=== PATIENT | female | born 1935 | race Two or more races ===

== ENCOUNTER 2020-09-03 10:56 | Inpatient (IN) | payer MEDICARE, MEDICAID ==
[~2020-09-03] VITALS: Ht 165.1 cm; Wt 70.1 kg
[~2020-09-03 10:56] MED LIST: ACETAMINOPHEN650 M2 ORAL; AMLODIPINE BESYL5 MG ORAL; DUONEB 0.5-3(2.53 ML HHN; FLONASE1 SPRAYS NASAL; LOPRESSOR25 M1 ORAL; LOSARTAN POTAS100 MG ORAL; MIRALAX17 G2 ORAL; NEUPRO1 EAC1 TD; PRILOSEC20 MG ORAL; TYLENOL EXTRA500 MG ORAL; lopressor PO
[2020-09-03] MEDS ORDERED: HYDRALAZINE HCL10 MG ORAL (11:02)
--- NOTE | 2020-09-03 11:06 | NUR ---
ED Nurse Note: Patient from home and brought in by RA 826 due to lower back pain and right arm pain x 2 days. No reports of fall or trauma. Noted small bruising on right lower back. AAO x4, follows commands with non labored breathing.
[2020-09-03 11:10] VITALS: BP 150/63
--- NOTE | 2020-09-03 11:14 | NUR ---
ED Nurse Note: Dr Marquez at the bed side.
[2020-09-03] MEDS ORDERED: Omnipaque-300 100ml vial INJ PRN (11:15)
[2020-09-03] MEDS ORDERED: Ketorolac 30mg Inj IV ONE (11:15)
--- NOTE | 2020-09-03 11:27 | Emergency Room Report ---
History of Present Illness General Chief Complaint: Back Pain-No Injury Source: Patient Present Illness HPI 85-year-old female history of hypertension, obesity history of peptic ulcer disease requiring Rene patch, presents with diffuse abdominal pain sharp has been ongoing for the past 3 days patient reports that she has had abdominal pain for the past 2 months but she had an acute exacerbation she does endorse some diarrhea no blood, no dysuria severity is moderate, constant patient presents for evaluation treatment no known aggravating or alleviating factors. Patient during review of systems also complained of some chest discomfort that has been ongoing with this abdominal pain no fevers no chills no cough, patient does also endorse some accompanying shortness of breath Allergies: Coded Allergies: No Known Allergies (Unverified , 12/27/15) COVID-19 Screening Contact w/high risk pt: No Experienced COVID-19 symptoms?: No COVID-19 Testing performed PRODUCE INSPECTOR: No Patient History Past Medical History: see triage record Now: No Reviewed Nursing Documentation: PMH: Agreed; PSxH: Agreed Nursing Documentation-PMH Past Medical History: No History, Except For Hx Cardiac Problems: Yes Hx Hypertension: Yes Hx Cancer: No Hx Gastrointestinal Problems: Yes Hx Neurological Problems: Yes Hx Cerebrovascular Accident: Yes - 2000 Review of Systems All Other Systems: negative except mentioned in HPI Physical Exam Vital Signs Date Time Temp Pulse Resp B/P (MAP) Pulse Ox O2 Delivery O2 Flow Rate FiO2 09/03/20 10:56 98.6 76 18 142/82 (102) 99 Room Air Sp02 EP Interpretation: reviewed, normal General Appearance: well appearing, no apparent distress, alert Head: normocephalic, atraumatic Eyes: bilateral eye PERRL, bilateral eye EOMI ENT: uvula midline, moist mucus membranes Neck: supple, thyroid normal, supple/symm/no masses Respiratory: lungs clear, no respiratory distress, no retraction, no accessory muscle use Cardiovascular #1: normal peripheral pulses, regular rate, rhythm, no edema, no gallop, no murmur Gastrointestinal: soft, no guarding, no rebound, tenderness - Diffuse no localization Musculoskeletal: normal inspection Neurologic: alert, oriented x3 Psychiatric: mood/affect normal Skin: no rash, warm/dry Medical Decision Making Diagnostic Impression: Primary Impression: Abdominal pain Qualified Codes: R10.13 - Epigastric pain Additional Impressions: Pancreatitis Qualified Codes: K85.90 - Acute pancreatitis without necrosis or infection, unspecified Hyponatremia ER Course 85-year-old female presents with vague epigastric pain, chest pain differential diagnosis includes ACS, pancreatitis, pneumonia Chest x-ray negative, EKG negative troponin negative, patient found to be hyponatremic patient given a gentle bolus of 500 cc of NS Electrolytes will need to be corrected as an inpatient Patient admitted to Dr. Demarco Laboratory Tests Test 09/03/20 11:23 09/03/20 11:45 White Blood Count 5.8 K/UL (4.8-10.8) Red Blood Count 3.74 M/UL (4.20-5.40) L Hemoglobin 11.4 G/DL (12.0-16.0) L Hematocrit 32.9 % (37.0-47.0) L Mean Corpuscular Volume 88 FL (80-99) Mean Corpuscular Hemoglobin 30.4 PG (27.0-31.0) Mean Corpuscular Hemoglobin Concent 34.6 G/DL (32.0-36.0) Red Cell Distribution Width 11.8 % (11.6-14.8) Platelet Count 199 K/UL (150-450) Mean Platelet Volume 7.4 FL (6.5-10.1) Neutrophils (%) (Auto) 57.4 % (45.0-75.0) Lymphocytes (%) (Auto) 26.1 % (20.0-45.0) Monocytes (%) (Auto) 11.5 % (1.0-10.0) H Eosinophils (%) (Auto) 2.4 % (0.0-3.0) Basophils (%) (Auto) 2.5 % (0.0-2.0) H Prothrombin Time 10.5 SEC (9.30-11.50) Prothrombin Time INR 0.9 (0.9-1.1) Activated Partial Thromboplast Time 29 SEC (23-33) Sodium Level 125 MMOL/L (136-145) L Potassium Level 4.1 MMOL/L (3.5-5.1) Chloride Level 93 MMOL/L (98-107) L Carbon Dioxide Level 24 MMOL/L (21-32) Blood Urea Nitrogen 16 mg/dL (7-18) Creatinine 1.2 MG/DL (0.55-1.30) Estimated Glomerular Filtration Rate 42.8 mL/min (>60) Glucose Level 93 MG/DL (74-106) Calcium Level 9.0 MG/DL (8.5-10.1) Total Bilirubin 0.6 MG/DL (0.2-1.0) Aspartate Amino Transferase (AST) 41 U/L (15-37) H Alanine Aminotransferase (ALT) 31 U/L (12-78) Alkaline Phosphatase 81 U/L (46-116) Troponin I 0.017 ng/mL (0.000-0.056) Total Protein 6.5 G/DL (6.4-8.2) Albumin 3.6 G/DL (3.4-5.0) Globulin 2.9 g/dL Albumin/Globulin Ratio 1.2 (1.0-2.7) Lipase 401 U/L (73-393) H Urine Color Pale yellow Urine Appearance Clear Urine pH 7 (4.5-8.0) Urine Specific [place] 1.005 (1.005-1.035) Urine Protein Negative (NEGATIVE) Urine Glucose (UA) Negative (NEGATIVE) Urine Ketones Negative (NEGATIVE) Urine Blood 1+ (NEGATIVE) H Urine Nitrite Negative (NEGATIVE) Urine Bilirubin Negative (NEGATIVE) Urine Urobilinogen Normal MG/DL (0.0-1.0) Urine Leukocyte Esterase 2+ (NEGATIVE) H Urine RBC 0-2 /HPF (0 - 2) Urine WBC 2-4 /HPF (0 - 2) Urine Squamous Epithelial Cells Occasional /LPF Urine Bacteria None /HPF (NONE) Microbiology Date/Time Source Procedure Growth Status 09/03/20 11:30 Nasopharynx SARS-CoV-2 RdRp Gene Assay - Final Complete EKG Diagnostic Results Troponin ordered: Yes When was troponin ordered?: Sep 03, 2020 - 1101 EKG Time: 11:28 EP Interpretation: NSR, rate 68, QTc 41, no acute ST elevations, normal axis Rhythm Strip Diag. Results Rhythm Strip Time: 11:58 EP Interpretation: yes Rate: 69 Rhythm: NSR, no PVC's, no ectopy Chest X-Ray Diagnostic Results Chest X-Ray Diagnostic Results : Chest X-Ray Ordered: Yes # of Views/Limited/Complete: 1 View Indication: Chest Pain EP Interpretation: Yes Interpretation: no consolidation, no effusion, no pneumothorax, no acute cardiopulmonary disease Impression: No acute disease Electronically Signed by: Parmjit Marquez MD CT/MRI/US Diagnostic Results CT/MRI/US Diagnostic Results : Impression Procedure: CT Abdomen Pelvis w/Contrast Clinical Indication: Abdominal pain Technique: No oral contrast utilized, per emergency room physician request IV administration nonionic contrast. Venous phase spiral acquisition obtained through the abdomen and pelvis. Multiplanar reconstructions were generated. Total dose length product 438 mGycm. CTDIvol(s) 9 mGy. Dose reduction achieved using automated exposure control Comparison: none Findings: Lack of enteric contrast limits assessment of the GI tract. The a ppendix is not definitely identified, but no findings to suggest acute appendicitis are evident. No evidence of diverticulosis or diverticulitis. No small bowel distention. No free or loculated intraperitoneal gas or fluid is evident. There is a small sliding- type hiatal hernia incidentally noted. The remainder of the stomach and duodenum are unremarkable. The liver, gallbladder, bile ducts, pancreas, spleen, adrenals, kidneys are unremarkable. No retroperitoneal or mesenteric mass or adenopathy. No pelvic mass or adenopathy. The bladder is somewhat distended. Uterus and adnexal structures are unremarkable. The included lung bases demonstrate some peripheral linear reticular opacities. There are also basilar compressive atelectatic changes. The bones demonstrate degenerative spondylosis changes. Impression: Limited assessment of the GI tract, due to lack of enteric contrast administration No definite acute abnormality Peripheral basilar pulmonary linear reticular opacities, nonspecific, could represent small focal infiltrates, areas of scarring, mild pulmonary edema, among other possibilities. Incidental finding small sliding type hiatal hernia The CT scanner at [facility] is accredited by the [employer] and the scans are performed using protocols designed to limit radiation exposure to as low as reasonably achievable to attain images of sufficient resolution adequate for diagnostic evaluation. Dictated By: Quintin Smallwood MD Electronically Signed By:Quintin Smallwood MD Signed Date/Time09/03/20 1436 CC: Parmjit Marquez MD; Eliud Demarco [id number] 0 Last Vital Signs Date Time Temp Pulse Resp B/P (MAP) Pulse Ox O2 Delivery O2 Flow Rate FiO2 09/03/20 10:56 98.6 76 18 142/82 (102) 99 Room Air Disposition: ADMITTED INPATIENT Condition: Stable Referrals: NOT CHOSEN IPA/,REFERRING (PCP) Parmjit Marquez MD Sep 03, 2020 11:27
--- NOTE | 2020-09-03 11:40 | NUR ---
ED Nurse Note: Collected urine and covid19 swab and sent to lab.
[2020-09-03 11:43] LABS: BASOPHILS % (AUTO) 2.5 % (0.0-2.0); EOSINOPHILS % (AUTO) 2.4 % (0.0-3.0); HEMATOCRIT 32.9 % (37.0-47.0); HEMOGLOBIN 11.4 G/DL (12.0-16.0); LYMPHOCYTES % (AUTO) 26.1 % (20.0-45.0); MEAN CORPUSCULAR VOLUME 88 FL (80-99); MONOCYTES % (AUTO) 11.5 % (1.0-10.0); NEUTROPHILS % (AUTO) 57.4 % (45.0-75.0); PLATELET COUNT 199 K/UL (150-450); RED BLOOD COUNT 3.74 M/UL (4.20-5.40); RED CELL DISTRIBUTION WIDTH 11.8 % (11.6-14.8); WHITE BLOOD COUNT 5.8 K/UL (4.8-10.8)
[2020-09-03 11:49] LABS: INR 0.9 (0.9-1.1)
[2020-09-03 11:55] LABS: ALANINE AMINOTRANSFERASE 31 U/L (12-78); ALBUMIN 3.6 G/DL (3.4-5.0); ALBUMIN/GLOBULIN RATIO 1.2 (1.0-2.7); ALKALINE PHOSPHATASE 81 U/L (46-116); ASPARTATE AMINO TRANSFERASE 41 U/L (15-37); BILIRUBIN,TOTAL 0.6 MG/DL (0.2-1.0); BLOOD UREA NITROGEN 16 mg/dL (7-18); CARBON DIOXIDE 24 MMOL/L (21-32); CHLORIDE 93 MMOL/L (98-107); CREATININE 1.2 MG/DL (0.55-1.30); POTASSIUM 4.1 MMOL/L (3.5-5.1); SODIUM 125 MMOL/L (136-145)
[2020-09-03 12:32] LABS: APPEARANCE,URINE CLEAR; BILIRUBIN, URINE NEGATIVE (NEGATIVE); COLOR,URINE PALE YELLOW; GLUCOSE, URINE (UA) NEGATIVE (NEGATIVE); KETONES,URINE NEGATIVE (NEGATIVE); LEUKOCYTE ESTERASE ,URINE 2+ (NEGATIVE); NITRITE,URINE NEGATIVE (NEGATIVE); PH,URINE 7 (4.5-8.0); PROTEIN,URINE NEGATIVE (NEGATIVE); UROBILINOGEN,URINE NORMAL MG/DL (0.0-1.0)
--- NOTE | 2020-09-03 12:43 | NUR ---
ED Nurse Note: Pt taken to CT via dang.
--- NOTE | 2020-09-03 12:51 | NUR ---
ED Nurse Note: Pt returned from Ct, not in any distress.
[2020-09-03 13:35] VITALS: BP 136/106
--- NOTE | 2020-09-03 14:42 | Diagnostic Imaging Report ---
Clinical Indication: Abdominal pain Technique: No oral contrast utilized, per emergency room physician request IV administration nonionic contrast. Venous phase spiral acquisition obtained through the abdomen and pelvis. Multiplanar reconstructions were generated. Total dose length product 438 mGycm. CTDIvol(s) 9 mGy. Dose reduction achieved using automated exposure control Comparison: none Findings: Lack of enteric contrast limits assessment of the GI tract. The appendix is not definitely identified, but no findings to suggest acute appendicitis are evident. No evidence of diverticulosis or diverticulitis. No small bowel distention. No free or loculated intraperitoneal gas or fluid is evident. There is a small sliding-type hiatal hernia incidentally noted. The remainder of the stomach and duodenum are unremarkable. The liver, gallbladder, bile ducts, pancreas, spleen, adrenals, kidneys are unremarkable. No retroperitoneal or mesenteric mass or adenopathy. No pelvic mass or adenopathy. The bladder is somewhat distended. Uterus and adnexal structures are unremarkable. The included lung bases demonstrate some peripheral linear reticular opacities. There are also basilar compressive atelectatic changes. The bones demonstrate degenerative spondylosis changes. Impression: Limited assessment of the GI tract, due to lack of enteric contrast administration No definite acute abnormality Peripheral basilar pulmonary linear reticular opacities, nonspecific, could represent small focal infiltrates, areas of scarring, mild pulmonary edema, among other possibilities. Incidental finding small sliding type hiatal hernia The CT scanner at [facility] is accredited by the [employer] and the scans are performed using protocols designed to limit radiation exposure to as low as reasonably achievable to attain images of sufficient resolution adequate for diagnostic evaluation.
[2020-09-03] MEDS ORDERED: Albuterol/Ipratropium 3ml neb HHN PRN (15:15)
[2020-09-03 15:27] VITALS: BP 146/76
--- NOTE | 2020-09-03 15:33 | Diagnostic Imaging Report ---
Indication: Chest Technique: One view of the chest Comparison: 12/29/2025 Findings: Lungs pleural spaces are clear. The heart size is normal. No significant change Impression: Negative
--- NOTE | 2020-09-03 16:14 | NUR ---
ED Nurse Note: Report given to Delfina SEQUEIRA of telemetry unit.
--- NOTE | 2020-09-03 16:15 | NUR ---
NURSE NOTES: Received report from HUA Banegas. Awaiting for the pt to arrive in the unit.
--- NOTE | 2020-09-03 16:46 | NUR ---
ED Nurse Note: Dr Guthrie at the bed side.
--- NOTE | 2020-09-03 17:00 | NUR ---
NURSE NOTES: Pt arrived in the unit. Pt A/O x4, able to make needs known, complains of upper abdominal pain 07/05. No s/sx of acute distress, breathing even and unlabored in RA. IV site patent and asymptomatic. Belongings checked. Admissions orders already in place prior to arrival in the unit. Spoke with pharmacy regarding the timing of medication, as it was scheduled and pt still in the ED. Admission assessment performed. Bed on lowest position, call light within reach. Will continue plan of care.
[2020-09-03 18:00] VITALS: BP 152/71
[2020-09-03] MEDS: Metoprolol Tartrate 12.5mg TAB ORAL SCH (18:30)
[2020-09-03] MEDS: Losartan 50mg tab ORAL SCH (18:30)
[2020-09-03] MEDS: Flonase Nasal Inhaler 16gm NASAL SCH (18:31)
[2020-09-03] MEDS: HydrALAZINE 50mg tab ORAL SCH ×2 (18:31→22:37)
[2020-09-03] MEDS: Heparin 5000 units/ml inj SUBQ SCH (18:34)
--- NOTE | 2020-09-03 19:14 | Diagnostic Imaging Report ---
EXAM: US Duplex Bilateral Lower Extremities Veins CLINICAL HISTORY: Lower extremity pain, abdominal pain and shortness of breath. Evaluate for DVT. TECHNIQUE: Real-time duplex ultrasound scan of the bilateral lower extremity veins integrating B-mode two-dimensional vascular structure, Doppler spectral analysis, color flow Doppler imaging and compression. COMPARISON: No relevant prior studies available. FINDINGS: Right deep veins: Unremarkable. No DVT in the right common femoral, femoral, proximal deep femoral or popliteal veins. The veins demonstrate normal color flow, are normally compressible, with normal phasic flow and/or augmentation response. Right superficial veins: Unremarkable. No thrombus in the visualized right great saphenous vein. Left deep veins: Unremarkable. No DVT in the left common femoral, femoral, proximal deep femoral or popliteal veins. The veins demonstrate normal color flow, are normally compressible, with normal phasic flow and/or augmentation response. Left superficial veins: Unremarkable. No thrombus in the visualized left great saphenous vein. Soft tissues: No acute findings. No popliteal cyst. IMPRESSION: No evidence for DVT in the visualized portions of the veins of the bilateral lower extremities.
--- NOTE | 2020-09-03 19:38 | NUR ---
NURSE NOTES: Received pt from Delfina SEQUEIRA. Pt is lying in bed. Not acute distress noted. Pain is complaining of stomach pain 07/05. Patient is able to ambulate to the restroom with assistance of staff. IV site left forearm 20G running Normal Saline @75ml/hr as ordered; patent and intact. No erythema or bleeding noted. Bed in lowest position and locked. Call light with in reach; patient was also educated to use call light when needing assistance. Will call Dr. Demarco regarding pain and code status. Will continue to monitor.
--- NOTE | 2020-09-03 19:40 | NUR ---
NURSE NOTES: Left message with Dr. Demarco regarding patients stomach pain and the need of a code status.
--- NOTE | 2020-09-03 19:45 | NUR ---
NURSE HAND-OFF REPORT: Important Events on Shift: new admit Patient Status: Diet: Pending Orders: f/u on status code Pending Results/Labs: Pending MD notification: Latest Vital Signs: Temperature 97.9 , Pulse 72 , B/P 152 /71 , Respiratory Rate 20 , O2 SAT 97 , Room Air, O2 Flow Rate . Vital Sign Comment: EKG Rhythm: Sinus Rhythm Rhythm change?: MD Notified?: - MD Response: Latest Nur Fall Score: 45 Fall Risk: High Risk Safety Measures: Call light Within Reach, Bed Alarm Zone 1, Side Rails Side Rails x2, Bed position Low and Locked. Fall Precautions: Yellow Socks Yellow Gown Door Sign Patient Fall Education Report given to HUA Terry
[2020-09-03 20:00] VITALS: BP 128/71
--- NOTE | 2020-09-03 20:07 | NUR ---
NURSE NOTES: Left second message with Dr. Demarco regarding patients stomach pain and the need of a code status.
--- NOTE | 2020-09-03 20:30 | NUR ---
NURSE NOTES: Left message on Dr. Demarco/ Dr. Lopez office line regarding patients stomach pain and the need of a code status.
--- NOTE | 2020-09-03 20:40 | NUR ---
NURSE NOTES: Spoke to Dr. Lopez regarding patients stomach pain. Dr. Lopez will put in orders..
--- NOTE | 2020-09-03 21:42 | General Progress Note ---
Subjective Allergies: Coded Allergies: No Known Allergies (Unverified , 12/27/15) Objective Last 24 Hour Vital Signs Date Time Temp Pulse Resp B/P (MAP) Pulse Ox O2 Delivery O2 Flow Rate FiO2 09/03/20 18:31 152/71 09/03/20 18:31 72 152/71 09/03/20 18:30 72 152/71 09/03/20 18:30 152/71 09/03/20 18:00 97.9 72 20 152/71 (98) 97 09/03/20 17:33 Room Air 09/03/20 17:00 97.9 86 17 142/85 99 Room Air 09/03/20 15:27 98.5 79 16 146/76 100 Room Air 09/03/20 13:35 98.3 82 14 136/106 99 Room Air 09/03/20 11:58 98.6 09/03/20 11:10 98.3 68 16 150/63 100 Room Air 09/03/20 10:56 98.6 76 18 142/82 (102) 99 Room Air Laboratory Tests 09/03/20 11:23: White Blood Count 5.8, Red Blood Count 3.74L, Hemoglobin 11.4L, Hematocrit 32.9L , Mean Corpuscular Volume 88, Mean Corpuscular Hemoglobin 30.4, Mean Corpuscular Hemoglobin Concent 34.6, Red Cell Distribution Width 11.8, Platelet Count 199, Mean Platelet Volume 7.4, Neutrophils (%) (Auto) 57.4, Lymphocytes (%) (Auto) 26.1, Monocytes (%) (Auto) 11.5H, Eosinophils (%) (Auto) 2.4, Basophils (%) (Auto) 2.5H, Prothrombin Time 10.5, Prothromb Time International Ratio 0.9, Activated Partial Thromboplast Time 29, Sodium Level 125L, Potassium Level 4.1, Chloride Level 93L, Carbon Dioxide Level 24, Blood Urea Nitrogen 16, Creatinine 1.2, Estimat Glomerular Filtration Rate 42.8, Glucose Level 93, Calcium Level 9.0, Total Bilirubin 0.6, Aspartate Amino Transf (AST/SGOT) 41H, Alanine Aminotransferase (ALT/SGPT) 31, Alkaline Phosphatase 81, Troponin I 0.017, Total Protein 6.5, Albumin 3.6, Globulin 2.9, Albumin/Globulin Ratio 1.2, Lipase 401H 09/03/20 11:45: Urine Color Pale yellow, Urine Appearance Clear, Urine pH 7, Urine Specific [place] 1.005, Urine Protein Negative, Urine Glucose (UA) Negative, Urine Ketones Negative, Urine Blood 1+H, Urine Nitrite Negative, Urine Bilirubin Negative, Urine Urobilinogen Normal, Urine Leukocyte Esterase 2+H, Urine RBC 0- 2, Urine WBC 2-4, Urine Squamous Epithelial Cells Occasional, Urine Bacteria None Height (Feet): 5 Height (Inches): 1.00 Weight (Pounds): 152 Assessment/Plan Assessment/Plan: Assessment - 2 mo of intermittent post parandial epigastric pain - h/o gastritis - mild anemia - HTN - hypercholesterolemia Recommendations - check abd ultrasound - will consider HIDA - Protonix - Check OB - May need EGD next week Thank you Teodoro Draper MD Sep 03, 2020 21:42
--- NOTE | 2020-09-03 21:56 | NUR ---
NURSE NOTES: Left massage for Dr. Lopez regarding patients stomach pain and code status. Orders still have not been put in at this time. Will continue to monitor.
--- NOTE | 2020-09-03 21:59 | NUR ---
NURSE NOTES: Spoke to Dr. Lopez regarding patients stomach pain. Dr. Lopez will put in orders Addendum: 09/03/20 at 2216 by Mara Keating RN duplicate note.
[2020-09-03] MEDS: Morphine Sulfate 2mg/ml Inj(IV/IM USE ONLY) IVP PRN (22:37)
[2020-09-03] MEDS: Pantoprazole Inj IVP SCH (23:22)
[2020-09-04] VITALS (7 sets, daily range): BP systolic 104–150; BP diastolic 45–75
[2020-09-04] MEDS: Hyoscyamine 0.125mg tab ORAL PRN ×2 (00:12→04:59)
--- NOTE | 2020-09-04 00:30 | Consultation ---
DATE OF CONSULTATION: 09/03/2020 GASTROENTEROLOGY CONSULTATION CHIEF COMPLAINT: I was asked to see this patient by Dr. Eliud Demarco for evaluation of some abdominal complaints. HISTORY OF PRESENT ILLNESS: The patient is a pleasant 85-year-old woman who comes into the hospital due to a 2-month history of abdominal pain. The patient states the pain is epigastric and comes and goes. She has had no nausea or vomiting. She has had rare diarrhea. However, she does note the pain increases after oral intake. She has had no fevers and no hematochezia. The patient also complains of some other pains including back pain and arm pain. She has not had endoscopy or colonoscopy for at least 4 to 5 years. PAST MEDICAL HISTORY: History of gastritis, history of hypertension, and history of hypercholesterolemia. 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 FAMILY HISTORY: Negative for any malignancies. SOCIAL HISTORY: The patient does not smoke or drink alcohol. She is single. She has one son. REVIEW OF SYSTEMS: Otherwise negative. PHYSICAL EXAMINATION: GENERAL: A pleasant elderly woman, seen in the emergency room. HEENT: Normocephalic and atraumatic. Sclerae are anicteric. Oropharynx is clear. NECK: Supple. CHEST: Clear to auscultation. CARDIAC: Revealed regular rate. ABDOMEN: Soft but mildly tender to palpation in the epigastric region, perhaps slightly more on the right side. There is no guarding or rebound. EXTREMITIES: No edema. IMAGING AND LABORATORY STUDIES: Noted. ASSESSMENT: This patient presents with a vague complaint of postprandial epigastric abdominal pain of unclear etiology. The CT does not show any gallbladder pathology. The ultrasound should be done to evaluate the gallbladder further and possibly evaluate for Del Cid sign. If there is any suspicion, then a HIDA scan can be done to rule out gallbladder disease. Alternatively, she does have a history of gastritis and therefore should be placed on a proton pump inhibitor to see if she improves. An endoscopy can also be considered to evaluate the upper GI tract. RECOMMENDATIONS: 1. Abdominal ultrasound. 2. Follow laboratory parameters and exam. 3. Check stool for occult blood. 4. Follow lipase. 5. Further recommendations to follow. Thank you for asking me to participate in the care of this patient. Teodoro Huertas M.D. DR: RIO JOB#: [id number] CC:
--- NOTE | 2020-09-04 01:15 | Consultation ---
DATE OF CONSULTATION: 09/04/2020 CARDIOLOGY CONSULTATION CONSULTING PHYSICIAN: Kyle Lopez MD. REQUESTING PHYSICIAN: Eliud Demarco MD. REASON FOR CONSULTATION: Chest pain. HISTORY OF PRESENT ILLNESS: This is an 85-year-old female. She presented to the emergency room complaining of abdominal and back pain. She also had chest pain. She has noted recurrence of these symptoms for the past 2 months but significant worsening today prompting her to come to the hospital. She has had some diarrhea but no bleeding. No fevers. No chills. No leg swelling. Mild shortness of breath. The patient does have a prior history of pancreatitis and was hospitalized many years back for such an episode. Further the patient was hospitalized here in 2016. She had shortness of breath. She had a full cardiac workup at that time that included a 2D echocardiogram revealing normal ejection fraction, degenerative valve disease with moderate mitral and mild tricuspid regurgitation. In addition, myocardial perfusion scan revealed normal ejection fraction. No evidence of perfusion defects. PAST MEDICAL HISTORY: CVA with some speech impairment, hypertension, history of pancreatitis, peptic ulcer disease, obesity. ALLERGIES: None. MEDICATIONS: Reviewed and reconciled. FAMILY HISTORY: Noncontributory. SOCIAL HISTORY: Negative for smoking, alcohol, or substance abuse. REVIEW OF SYSTEMS: No fevers or chills. No known COVID-19 exposures. No seizures. No history of diabetes or thyroid disorder. No recent changes in bowel habits. No change in voiding capacity, dysuria or frequency. No wheezing. Some shortness of breath noted. No history of abnormal blood clotting. PHYSICAL EXAMINATION: VITAL SIGNS: Blood pressure 142/82, pulse 76, respiratory rate 18, afebrile, oxygen saturation room air 99%. GENERAL: Moderately obese. NECK: Supple. LUNGS: . Diminished breath sounds. No wheezing or rales. CARDIAC: Regular rhythm and rate. Distant S1, S2 with no murmur appreciated. ABDOMEN: Soft. Mildly tender in the midepigastric region predominantly. NEUROLOGIC: Nonfocal. LABORATORY AND DIAGNOSTIC DATA: White count 5.8, hemoglobin 11.4. Sodium 125, potassium 4.1, chloride 93, bicarb 24, BUN 16, creatinine 1.2, glucose 93. Troponin 0.017. Lipase 401. Urinalysis with only 2 to 4 white cells. EKG with sinus rhythm, no acute ST abnormalities. Chest x-ray with no acute process. IMPRESSION: Noncardiac chest pain. No signs of acute coronary insufficiency. Prior negative cardiac workup. It is of note degenerative valve disease with no hemodynamic consequence with history of mitral regurgitation, probable acute pancreatitis, history of CVA, hypertensive heart disease with controlled blood pressure, hyponatremia, hypochloremia, probable component of hypovolemia. PLAN: 1. Saline hydration. 2. NPO. 3. Pain control. 4. Followup troponin. 5. DVT prophylaxis. 6. Titrate antihypertensive regimen. 7. No additional cardiovascular studies presently indicated but will follow closely for any change in clinical course. Kyle Lopez M.D. DR: Tank JOB#: [id number] CC:
[2020-09-04] MEDS: Morphine Sulfate 2mg/ml Inj(IV/IM USE ONLY) IVP PRN (04:59)
[2020-09-04] MEDS: HydrALAZINE 50mg tab ORAL SCH ×3 (05:47→22:03)
--- NOTE | 2020-09-04 07:30 | NUR ---
NURSE HAND-OFF REPORT: Important Events on Shift: Patient had an ABD ultrasound. Patient was placed on NPO. Patient Status: Stable Diet: NPO Pending Orders: Pending Results/Labs: AM labs Pending Pending MD notification: Latest Vital Signs: Temperature 98.5 , Pulse 87 , B/P 153 /78 , Respiratory Rate 20 , O2 SAT 95 , Room Air, O2 Flow Rate . Vital Sign Comment: EKG Rhythm: Sinus Rhythm Rhythm change?: N MD Notified?: - MD Response: Latest Nur Fall Score: 45 Fall Risk: High Risk Safety Measures: Call light Within Reach, Bed Alarm Zone 1, Side Rails Side Rails x2, Bed position Low and Locked. Fall Precautions: Yellow Socks Yellow Gown Door Sign Patient Fall Education Report given to Trista SEQUEIRA.
--- NOTE | 2020-09-04 07:32 | NUR ---
NURSES NOTES: Received order from Dr. Demarco for Full Code status order.
[2020-09-04 07:44] LABS: CHOLESTEROL 119 MG/DL (< 200); HDL CHOLESTEROL 86 MG/DL (40-60); TRIGLYCERIDES 41 MG/DL (30-150)
--- NOTE | 2020-09-04 07:48 | NUR ---
NURSE NOTES: spoke with Dr Demarco and ordered okay transfer to [facility].
[2020-09-04 07:54] LABS: CALCIUM 8.8 MG/DL (8.5-10.1); CREATININE 1.2 MG/DL (0.55-1.30); POTASSIUM 3.8 MMOL/L (3.5-5.1)
--- NOTE | 2020-09-04 08:11 | NUR ---
NURSE NOTES: Received report from HUA Terry. Pt is A/O x 4 and verbally responsive Yoruba speaking only. No SOB or acute distress noted. Pt has stomach pain 8/10 and morphine given. Patient is able to ambulate to the bedside commode with assistance of staff. Pt has IV site LFA 20G running NS @75ml/hr. Bed in lowest position and locked with bed alarm on. Call light placed within reach.Will call Dr. Demarco regarding pain and code status. Will continue to monitor.
[2020-09-04] MEDS: Pantoprazole Inj IVP SCH ×2 (08:40→22:01)
[2020-09-04] MEDS: Losartan 50mg tab ORAL SCH (08:41)
[2020-09-04] MEDS: HYDROmorphone 1mg/ml Carpuject IVP PRN (08:41)
[2020-09-04] MEDS: Metoprolol Tartrate 12.5mg TAB ORAL SCH (08:42)
[2020-09-04] MEDS: Heparin 5000 units/ml inj SUBQ SCH ×2 (08:43→22:03)
[2020-09-04] MEDS: Flonase Nasal Inhaler 16gm NASAL SCH ×2 (08:51→18:09)
--- NOTE | 2020-09-04 10:00 | History and Physical Report ---
DATE OF ADMISSION: 09/03/2020 CHIEF COMPLAINT: Abdominal pain and chest pain. HISTORY OF PRESENT ILLNESS: The patient is an 85-year-old female, who presents with complaints of abdominal pain. She points to her upper abdominal area and lower chest area. According to the patient, she has had three months of intermittent abdominal pain. Currently, she is moaning. She has a history of hypertensive heart disease. She denies any melena or bright red blood per rectum. Denies any hematemesis. On evaluation in the emergency room, abdominal CT and it was unremarkable, but she is now admitted for further evaluation and care. PAST MEDICAL HISTORY: As above. PAST SURGICAL HISTORY: The patient is unclear, but she has had some type of abdominal surgery. CURRENT MEDICATIONS: Reconciled and reviewed. ALLERGIES: None. FAMILY HISTORY: None. SOCIAL HISTORY: There is no known history of tobacco, ethanol, or drugs. REVIEW OF SYSTEMS: GENERAL: No fevers or chills. HEENT: No headaches or visual changes. CARDIOPULMONARY: No chest pain or shortness of breath. GASTROINTESTINAL: Positive abdominal pain. No nausea. No vomiting. No constipation. No melena. No bright red blood per rectum. GENITOURINARY: No urgency or frequency. No hematuria. MUSCULOSKELETAL: No joint pain or swelling. NEUROLOGIC: No evidence of seizures. PHYSICAL EXAMINATION: VITAL SIGNS: Temperature 98.5, pulse 74, respirations 20, and blood pressure 145/59. GENERAL: The patient is well developed, in mild amount of distress due to pain. HEENT: Head is normocephalic and atraumatic. Oropharynx clear. Mucous membranes are moist. NECK: Supple. HEART: Regular rate and rhythm. LUNGS: Clear. ABDOMEN: Soft. Minimally tender in the epigastric region. Bowel sounds are normoactive. There is no rebound or guarding. EXTREMITIES: Without clubbing, cyanosis, or edema. LABORATORY DATA: UA was clear. White count 6, hemoglobin 11. Sodium 125, potassium is 4. LFTs are unremarkable. Lipase is 401. ASSESSMENT: This is a pleasant 85-year-old female admitted with complaints of three months of abdominal pain, etiology of which is unclear. PLAN: GI and Cardiology consultations. IV pain medications and IV hydration. Further plan of care will be determined after review of pending tests and discussion with consulting physicians. Eliud Demarco M.D. DR: GEETHA JOB#: [id number] CC:
--- NOTE | 2020-09-04 11:45 | NUR ---
NURSES NOTES: Transferred to [facility] and report given to HUA Cox. In stable condition without pain. Endorsed plan of care.
--- NOTE | 2020-09-04 12:00 | NUR ---
NURSE NOTES: Pt came up to unit via hospital bed in stable condition and w/belongings accounted for. Pt A&Ox3, VSS, and in no apparent distress. IV site intact/asymptomatic w/IVF infusing and skin intact. Pt is NPO x ice chips/PO meds and skin is intact. Pt has no concerns or complaints at this time. Will continue to monitor.
--- NOTE | 2020-09-04 12:59 | NUR ---
CASE MANAGEMENT:INITIAL REVIEW 85 YR OLE FEMALE BIBA FROM HOME CC;BACK PAIN-NO INJURY SI;CHEST PAIN. ABD PAIN. PANCREATITIS. HYPONATREMIA. 98.6 76 18 150/63 99% ON RA H/H 11.4/32.9 NA 125 CL 93 AST 41 LIPASE 401 TROP ~ NEGATIVE UA+ BLOOD, LEUKOCYTE ESTERASE COVID RAPID - NEGATIVE ABD/PELVIS CT ~ Limited assessment of the GI tract, due to lack of enteric contrast administration No definite acute abnormality Peripheral basilar pulmonary linear reticular opacities, nonspecific, could represent small focal infiltrates, areas of scarring, mild pulmonary edema, among other possibilities. Incidental finding small sliding type hiatal hernia CXR ~ NEGATIVE VENOUS DUPLEX ~ No evidence for DVT in the visualized portions of the veins of the bilateral lower extremities. IS;TORADOL IV ONCE IVF NS BOLUS ADMITTED TO TELE 09/03/20 TRANSFERRED TO MED SURG 09/04/20 @ 0748 MED SURG STATUS DCP;FROM HOME
--- NOTE | 2020-09-04 13:08 | NUR ---
CONSTRUCTION PROJECT COORDINATOR NOTE INTERQUAL CRITERIA MET
--- NOTE | 2020-09-04 17:06 | Cardiology Progress Note ---
Subjective DATE OF SERVICE: Sep 04, 2020 Improved abdominal pain. No CP Troponins negative Lipase level now normal Na+ increased from 125 to 133. Objective Last 24 Hour Vital Signs Date Time Temp Pulse Resp B/P (MAP) Pulse Ox O2 Delivery O2 Flow Rate FiO2 09/04/20 16:00 97.3 77 18 116/54 (74) 97 09/04/20 14:21 125/52 09/04/20 12:00 82 09/04/20 12:00 97.8 78 20 118/58 (78) 98 09/04/20 09:00 Room Air 09/04/20 08:42 74 153/78 09/04/20 08:41 153/78 09/04/20 08:41 74 153/78 09/04/20 08:00 97.9 73 20 105/45 (65) 100 09/04/20 08:00 87 09/04/20 05:47 153/78 09/04/20 04:00 98.5 87 20 145/59 (87) 95 09/04/20 04:00 74 09/04/20 00:00 82 09/04/20 00:00 98.5 77 18 150/75 (100) 94 09/03/20 22:37 140/62 09/03/20 21:00 Room Air 09/03/20 20:00 98.8 64 18 128/71 (90) 98 09/03/20 20:00 65 09/03/20 18:31 152/71 09/03/20 18:31 72 152/71 09/03/20 18:30 72 152/71 09/03/20 18:30 152/71 09/03/20 18:00 97.9 72 20 152/71 (98) 97 09/03/20 17:33 Room Air 09/03/20 17:00 97.9 86 17 142/85 99 Room Air ROS: unchanged from my evaluation 09/03/20 LUNGS: lungs clear bilaterally CARDIAC: normal rate, regular rhythm, normal S1 and S2 ABDOMEN: normal bowel sounds, soft, tender - mildly in midepigastric area EXTREMITIES: No edema Laboratory Tests Test 09/04/20 05:40 Sodium Level 133 MMOL/L (136-145) L Potassium Level 3.8 MMOL/L (3.5-5.1) Chloride Level 98 MMOL/L (98-107) Carbon Dioxide Level 25 MMOL/L (21-32) Anion Gap 10 mmol/L (5-15) Blood Urea Nitrogen 14 mg/dL (7-18) Creatinine 1.2 MG/DL (0.55-1.30) Estimat Glomerular Filtration Rate 42.8 mL/min (>60) Glucose Level 85 MG/DL (74-106) Calcium Level 8.8 MG/DL (8.5-10.1) Troponin I 0.023 ng/mL (0.000-0.056) Triglycerides Level 41 MG/DL (30-150) Cholesterol Level 119 MG/DL (< 200) LDL Cholesterol 28 mg/dL (<100) HDL Cholesterol 86 MG/DL (40-60) H Cholesterol/HDL Ratio 1.4 (3.3-4.4) L Lipase 183 U/L (73-393) Thyroid Stimulating Hormone (TSH) 2.339 uiU/mL (0.358-3.740) Microbiology Date/Time Source Procedure Growth Status 09/03/20 11:30 Nasopharynx SARS-CoV-2 RdRp Gene Assay - Final Complete Assessment/Plan Assessment/Plan Abdominal Pain Elevated lipase on admit with distant hx of pancreatitis Non-cardiac chest pain; negative ischemia work up in past. Low range lipid parameters. DC telemetry No additional cardiovascular studies at this time. Will follow Kyle Lopez MD Sep 04, 2020 17:06
--- NOTE | 2020-09-04 19:25 | General Progress Note ---
Subjective Allergies: Coded Allergies: No Known Allergies (Unverified , 12/27/15) Subjective above noted feels better today had ultrasound --> Gall bladder sludge noted Objective Last 24 Hour Vital Signs Date Time Temp Pulse Resp B/P (MAP) Pulse Ox O2 Delivery O2 Flow Rate FiO2 09/04/20 16:00 97.3 77 18 116/54 (74) 97 09/04/20 14:21 125/52 09/04/20 12:00 82 09/04/20 12:00 97.8 78 20 118/58 (78) 98 09/04/20 09:00 Room Air 09/04/20 08:42 74 153/78 09/04/20 08:41 153/78 09/04/20 08:41 74 153/78 09/04/20 08:00 97.9 73 20 105/45 (65) 100 09/04/20 08:00 87 09/04/20 05:47 153/78 09/04/20 04:00 98.5 87 20 145/59 (87) 95 09/04/20 04:00 74 09/04/20 00:00 82 09/04/20 00:00 98.5 77 18 150/75 (100) 94 09/03/20 22:37 140/62 09/03/20 21:00 Room Air 09/03/20 20:00 98.8 64 18 128/71 (90) 98 09/03/20 20:00 65 Intake and Output 09/03/20 09/04/20 19:00 07:00 Intake Total 740 ml Output Total 350 ml Balance 740 ml -350 ml Intake Oral 240 ml IV Total 500 ml Output Urine Total 350 ml # Voids 2 2 Laboratory Tests 09/04/20 05:40: Sodium Level 133L, Potassium Level 3.8, Chloride Level 98, Carbon Dioxide Level 25, Anion Gap 10, Blood Urea Nitrogen 14, Creatinine 1.2, Estimat Glomerular Filtration Rate 42.8, Glucose Level 85, Calcium Level 8.8, Troponin I 0.023, Triglycerides Level 41, Cholesterol Level 119, LDL Cholesterol 28, HDL Cholesterol 86H, Cholesterol/HDL Ratio 1.4L, Lipase 183, Thyroid Stimulating Hormone (TSH) 2.339 Height (Feet): 5 Height (Inches): 1.00 Weight (Pounds): 152 Objective WDWN woman NCAT supple CY+TA RR Abd soft ND NT no edema Assessment/Plan Assessment/Plan: Assessment - 2 mo of intermittent post parandial epigastric pain - cholelithiasis / GB sludge - h/o gastritis - mild anemia - HTN - hypercholesterolemia Recommendations - will check HIDA Sunday - Clear liquids for now - Protonix - Check OB Teodoro Huertas MD Sep 04, 2020 19:25
--- NOTE | 2020-09-04 19:30 | NUR ---
NURSE NOTES: Receive a report from HUA Cox. Round is done. Pt is awake without acute distress, Irish speaking. Breathing is even and non labored. Denies any pain/ Nausea. No BM noted. Hat is in the toilet to collect stool. Call light within reach. Will continue to monitor.
--- NOTE | 2020-09-04 19:30 | NUR ---
NURSE HAND-OFF: Important Events on Shift: Pt placed on clear liquids after abd US; possible EGD next week. Patient Status: Stable Diet: Clear liquids Pending Orders: OB stool Latest Vital Signs: Temperature 97.3 , Pulse 77 , B/P 116 /54 , Respiratory Rate 18 , O2 SAT 97 , Room Air, O2 Flow Rate Latest Nur Fall Score: 45 Fall Risk: High Risk Safety Measures: Call light Within Reach, Bed Alarm Zone 1, Side Rails Side Rails x2, Bed position Low and Locked. Fall Precautions: Yellow Socks Yellow Gown Door Sign Patient Fall Education Report given to HUA Amato.
[2020-09-05] VITALS: BP 140/66
[2020-09-05] MEDS: Miralax 17gm pkt ORAL PRN (00:03)
[2020-09-05 04:30] VITALS: BP 120/60
[2020-09-05] MEDS: HydrALAZINE 50mg tab ORAL SCH ×3 (06:31→21:19)
--- NOTE | 2020-09-05 07:30 | NUR ---
NURSE HAND-OFF: Important Events on Shift: No BM-Given prn miralax Patient Status: stable Diet: clear liquid Pending Orders: [] Pending Results/Labs:[] Pending MD notification:[] Latest Vital Signs: Temperature 97.6 , Pulse 81 , B/P 120 /60 , Respiratory Rate 18 , O2 SAT 96 , Room Air, O2 Flow Rate . Vital Sign Comment: [] Latest Nur Fall Score: 45 Fall Risk: High Risk Safety Measures: Call light Within Reach, Bed Alarm Zone 1, Side Rails Side Rails x2, Bed position Low and Locked. Fall Precautions: Yellow Socks Yellow Gown Door Sign Patient Fall Education Report given to HUA Cox.
--- NOTE | 2020-09-05 07:45 | NUR ---
NURSE NOTES: Pt lying in bed w/bed in lowest position and call light within reach. Pt A&Ox3, VSS, and in no apparent distress. IV site intact/asymptomatic w/IVF infusing and skin intact; some bruising noted on her right flank. Pt c/o pain in right flank; will administer pain medication.
[2020-09-05 08:00] VITALS: BP 120/57
[2020-09-05] MEDS: Flonase Nasal Inhaler 16gm NASAL SCH ×2 (08:09→17:28)
[2020-09-05] MEDS: Morphine Sulfate 2mg/ml Inj(IV/IM USE ONLY) IVP PRN (08:09)
[2020-09-05] MEDS: Losartan 50mg tab ORAL SCH (08:10)
[2020-09-05] MEDS: Metoprolol Tartrate 12.5mg TAB ORAL SCH ×2 (08:11→17:29)
[2020-09-05] MEDS: Pantoprazole Inj IVP SCH ×2 (08:12→21:19)
[2020-09-05] MEDS: Heparin 5000 units/ml inj SUBQ SCH (08:13)
[2020-09-05 12:00] VITALS: BP 128/80
[2020-09-05] MEDS: Diclofenac 1% Gel 100gm TOPIC SCH ×3 (13:51→21:19)
[2020-09-05] MEDS ORDERED: METOPROLOL SUCC50 MG ORAL (15:27)
--- NOTE | 2020-09-05 15:29 | General Progress Note ---
Subjective ROS Limited/Unobtainable: No Constitutional: Reports: malaise, weakness HEENT: Reports: no symptoms Cardiovascular: Reports: no symptoms Respiratory: Reports: shortness of breath Gastrointestinal/Abdominal: Reports: abdominal pain Genitourinary: Reports: no symptoms Neurologic/Psychiatric: Reports: no symptoms Endocrine: Reports: no symptoms Hematologic/Lymphatic: Reports: no symptoms Allergies: Coded Allergies: No Known Allergies (Unverified , 12/27/15) All Systems: reviewed and negative except above Subjective still with abd pain and now back pain. no fevers or chills. mild sob. +afib on ekg. no melena or brbpr Objective Last 24 Hour Vital Signs Date Time Temp Pulse Resp B/P (MAP) Pulse Ox O2 Delivery O2 Flow Rate FiO2 09/05/20 13:51 128/80 09/05/20 12:00 97.8 113 18 128/80 (96) 96 09/05/20 09:00 Room Air 09/05/20 08:11 107 120/57 09/05/20 08:10 120/57 09/05/20 08:00 97.4 107 18 120/57 (78) 96 09/05/20 06:31 120/60 09/05/20 04:30 97.6 81 18 120/60 (80) 96 09/05/20 00:00 98.9 92 18 140/66 (90) 96 09/04/20 22:03 116/56 09/04/20 22:00 116/58 (77) 09/04/20 21:00 Room Air 09/04/20 20:00 97.6 78 18 104/52 (69) 97 09/04/20 16:00 97.3 77 18 116/54 (74) 97 Intake and Output 09/04/20 09/05/20 19:00 07:00 Intake Total 840 ml 1150 ml Output Total 750 ml Balance 840 ml 400 ml Intake Oral 840 ml 250 ml IV Total 900 ml Output Urine Total 750 ml # Voids 4 4 Laboratory Tests 09/05/20 14:15: Stool Occult Blood [Pending] Height (Feet): 5 Height (Inches): 1.00 Weight (Pounds): 152 General Appearance: WD/WN, no apparent distress, alert EENT: PERRL/EOMI Neck: non-tender, normal alignment, supple Cardiovascular: normal rate, regular rhythm Respiratory/Chest: chest wall non-tender, lungs clear, normal breath sounds, no respiratory distress Abdomen: normal bowel sounds, non tender, soft, no organomegaly, no mass Edema: no edema noted Arm (L), no edema noted Arm (R) Edema: trace edema Neurologic: tube rebuilder II-XII grossly normal, no motor/sensory deficits, alert, oriented x 3, responsive Assessment/Plan Problem List: (1) Chest pain ICD Codes: R07.9 - Chest pain, unspecified SNOMED: 02329897 (2) Abdominal pain ICD Codes: R10.9 - Unspecified abdominal pain SNOMED: 14004172 Qualifiers: Qualified Codes: R10.13 - Epigastric pain (3) Hyponatremia ICD Codes: E87.1 - Hypo-osmolality and hyponatremia SNOMED: 82311941 (4) CHF (congestive heart failure) ICD Codes: I50.9 - Heart failure, unspecified SNOMED: 43095461 (5) Elevated alkaline phosphatase level ICD Codes: R74.8 - Abnormal levels of other serum enzymes SNOMED: 747095984 Status: stable, progressing Assessment/Plan: HIDA scan pain rx add eliquis cards follow up re: afib ct lumbar spine stress ulcer prophylaxis pain rx increased Eliud Demarco MD Sep 05, 2020 15:29
[2020-09-05] MEDS ORDERED: HYZAAR 100-251 EACH ORAL (15:33)
[2020-09-05] MEDS ORDERED: ATORVASTATIN CA20 MG ORAL (15:40)
[2020-09-05] MEDS ORDERED: CARAFATE SUSP UD1 G1 ORAL (15:40)
[2020-09-05] MEDS ORDERED: FLUTICASONE PRO16 G1 NASAL (15:40)
[2020-09-05] MEDS ORDERED: VITAMIN D325 MC1 PO (15:44)
[2020-09-05] MEDS ORDERED: TUMS200 M1 PO (15:44)
[2020-09-05] MEDS ORDERED: ASCORBIC ACID500 MG ORAL (15:44)
[2020-09-05] MEDS ORDERED: ALBUTEROL SULF8.5 G1 INH (15:44)
[2020-09-05] MEDS ORDERED: VOLTAREN ARTHRI20 GM TP (15:49)
[2020-09-05 16:00] VITALS: BP 147/70
[2020-09-05] MEDS: Eliquis 5mg tablet ORAL SCH (17:28)
--- NOTE | 2020-09-05 19:41 | NUR ---
NURSE HAND-OFF: Important Events on Shift: Pt tachycardic this afternoon; EKG showed a-fib; increased Metoprolol 12.5 mg frequency to BID; pt had BM; pt made aware that she is to be NPO at midnight in preparation for HIDA scan in AM. Patient Status: Stable Diet: Clear liquids/NPO at midnight Pending Orders: CT L/S w/o contrast Latest Vital Signs: Temperature 97.8 , Pulse 105 , B/P 147 /70 , Respiratory Rate 18 , O2 SAT 96 , Room Air, O2 Flow Rate Latest Nur Fall Score: 45 Fall Risk: High Risk Safety Measures: Call light Within Reach, Bed Alarm Zone 1, Side Rails Side Rails x2, Bed position Low and Locked. Fall Precautions: Yellow Socks Yellow Gown Door Sign Patient Fall Education Report given to HUA Loza.
--- NOTE | 2020-09-05 19:45 | General Progress Note ---
Subjective Allergies: Coded Allergies: No Known Allergies (Unverified , 12/27/15) Subjective above noted feels OK Occ Abd pain for HIDA in am Objective Last 24 Hour Vital Signs Date Time Temp Pulse Resp B/P (MAP) Pulse Ox O2 Delivery O2 Flow Rate FiO2 09/05/20 17:29 105 147/70 09/05/20 16:00 97.8 105 18 147/70 (95) 96 09/05/20 13:51 128/80 09/05/20 12:00 97.8 113 18 128/80 (96) 96 09/05/20 09:00 Room Air 09/05/20 08:11 107 120/57 09/05/20 08:10 120/57 09/05/20 08:00 97.4 107 18 120/57 (78) 96 09/05/20 06:31 120/60 09/05/20 04:30 97.6 81 18 120/60 (80) 96 09/05/20 00:00 98.9 92 18 140/66 (90) 96 09/04/20 22:03 116/56 09/04/20 22:00 116/58 (77) 09/04/20 21:00 Room Air 09/04/20 20:00 97.6 78 18 104/52 (69) 97 Intake and Output 09/04/20 09/05/20 19:00 07:00 Intake Total 840 ml 1150 ml Output Total 750 ml Balance 840 ml 400 ml Intake Oral 840 ml 250 ml IV Total 900 ml Output Urine Total 750 ml # Voids 4 4 Laboratory Tests 09/05/20 14:15: Stool Occult Blood [Pending] Height (Feet): 5 Height (Inches): 1.00 Weight (Pounds): 152 Objective WDWN woman NCAT supple CY+TA RR Abd soft ND NT no edema Assessment/Plan Status: stable, progressing Assessment/Plan: Assessment - 2 mo of intermittent post parandial epigastric pain - cholelithiasis / GB sludge - h/o gastritis - mild anemia - HTN - hypercholesterolemia Recommendations - will check HIDA Sunday - Clear liquids for now - Protonix - Check OB Teodoro Huertas MD Sep 05, 2020 19:45
[2020-09-05 20:00] VITALS: BP 142/73
--- NOTE | 2020-09-06 02:09 | Cardiology Progress Note ---
Subjective DATE OF SERVICE: Sep 05, 2020 Improved abdominal pain. No CP Troponins negative Lipase level now normal US reveals cholelithiasis and sludge Repeat EKG 09/05/20 reveals atrial fibrillation with adequate rate control. Objective Last 24 Hour Vital Signs Date Time Temp Pulse Resp B/P (MAP) Pulse Ox O2 Delivery O2 Flow Rate FiO2 09/05/20 21:19 142/73 09/05/20 21:00 Room Air 09/05/20 20:00 97.7 73 16 142/73 (96) 98 09/05/20 17:29 105 147/70 09/05/20 16:00 97.8 105 18 147/70 (95) 96 09/05/20 13:51 128/80 09/05/20 12:00 97.8 113 18 128/80 (96) 96 09/05/20 09:00 Room Air 09/05/20 08:11 107 120/57 09/05/20 08:10 120/57 09/05/20 08:00 97.4 107 18 120/57 (78) 96 09/05/20 06:31 120/60 09/05/20 04:30 97.6 81 18 120/60 (80) 96 ROS: unchanged from my evaluation 09/03/20 LUNGS: lungs clear bilaterally CARDIAC: normal rate, normal S1 and S2, irregularly irregular ABDOMEN: normal bowel sounds, soft, tender - mildly in midepigastric area EXTREMITIES: No edema Laboratory Tests Test 09/05/20 14:15 Stool Occult Blood Pending Microbiology Date/Time Source Procedure Growth Status 09/03/20 11:30 Nasopharynx SARS-CoV-2 RdRp Gene Assay - Final Complete Assessment/Plan Assessment/Plan Abdominal Pain Elevated lipase on admit with distant hx of pancreatitis Non-cardiac chest pain; negative ischemia work up in past. Low range lipid parameters. Paroxysmal atrial fibrillation Await Hida Beta dorys for rate control Cautious anticoagulation Kyle Lopez MD Sep 06, 2020 02:09
[2020-09-06] MEDS: Acetaminophen 500mg (ES) tab ORAL PRN ×2 (02:23→05:46)
--- NOTE | 2020-09-06 03:09 | NUR ---
NURSES NOTE: Pt in bed, Divehi speaker, able to answer questions appropriately with assistance of Divehi speaking day nurse. No outward s/s of distress noted. Breathing pattern is even and unlabored on RA. Pt to be NPO at 0000 in preparation for HIDA scan in the am. All due medications will be administered. Bed at lowest level. Call light within reach. Pt will continue to be monitored.
[2020-09-06 04:00] VITALS: BP 141/72
[2020-09-06] MEDS: HydrALAZINE 50mg tab ORAL SCH ×3 (05:45→21:27)
--- NOTE | 2020-09-06 06:18 | Diagnostic Imaging Report ---
EXAM: US Abdomen Complete CLINICAL HISTORY:85-year-old female history of hypertension, obesity history of peptic ulcer disease requiring Rene patch, presents with diffuse abdominal pain sharp has been ongoing for the past 3 days patient reports that she has had abdominal pain for the past 2 months but she had an acute exacerbation she does endorse some diarrhea no blood, no dysuria severity is moderate, constant patient presents for evaluation treatment no known aggravating or alleviating factors. Patient during review of systems also complained of some chest discomfort that has been ongoing with this abdominal pain no fevers no chills no cough, patient does also endorse some accompanying shortness of breath TECHNIQUE: Real-time ultrasound of the abdomen with image documentation. COMPARISON: CT abdomen pelvis 09/03/2020. FINDINGS: Evaluation is limited due to body habitus and rib shadowing artifact. Liver measures 15.5 cm in craniocaudal dimension. Echotexture of the liver is slightly heterogeneous, limiting evaluation for focal mass. There is no intrahepatic biliary ductal dilatation. The common bile duct measures 0.3 cm, within normal limits. The gallbladder is markedly distended with internal sludge near the gallbladder neck. No definite stone is appreciated, though the gallbladder neck is not well evaluated. There is no definite wall thickening. There is no sonographic Del Cid's sign. Correlate for recent pain medication administration, which would make sonographic Del Cid sign nondiagnostic. Pancreas is not well evaluated due to shadowing artifact from bowel gas. Right kidney measures 8.5 x 3.9 x 4.2 cm. The right renal parenchyma is not well evaluated due to shadowing artifact from ribs. There is no right renal hydronephrosis. There is cortical scarring of the right kidney at the mid to upper pole region. Left kidney measures 8.2 x 4.5 x 4.4 cm. The left renal parenchyma, is not well evaluated due to shadowing artifact from ribs. There is no left renal hydronephrosis. Probable areas of cortical scarring of the left kidney is noted. Spleen measures 8.2 cm, within normal limits. There is no significant free fluid. Aorta and IVC are not well evaluated due to limitations of the study described above. Aorta measures approximately 2.4 cm in the upper abdomen. IMPRESSION: Evaluation is limited due to body habitus and rib shadowing artifact. Gallbladder is markedly distended with internal sludge near the gallbladder neck. No definite stone is appreciated, though the gallbladder neck is not well evaluated. There is no definite gallbladder wall thickening. There is no sonographic Del Cid's sign. Correlate for recent pain medication administration, which would make sonographic Del Cid sign nondiagnostic. Findings are equivocal for acute cholecystitis. Correlation with HIDA scan is recommended.
--- NOTE | 2020-09-06 06:20 | Cardiology Report ---
APPROVED REPORT EKG Measurement Heart [id number] MD [id number] <Conclusion> Normal sinus rhythm Normal ECG
[2020-09-06 07:14] LABS: CALCIUM 8.5 MG/DL (8.5-10.1); CREATININE 1.3 MG/DL (0.55-1.30); POTASSIUM 3.5 MMOL/L (3.5-5.1)
--- NOTE | 2020-09-06 07:56 | NUR ---
NURSE HAND-OFF: Important Events on Shift:[ HIDA scan TBA 09/06. NPO, Pt will be in need stronger pain medication at return of procedures due to only being able to administer Tylenol NOC shift for success of procedures. ] Patient Status: [STABLE] Diet: [NPO] Pending Orders: [NONE] Pending Results/Labs:[NONE] Pending MD notification:[NONE] Latest Vital Signs: Temperature 97.4 , Pulse 79 , B/P 141 /72 , Respiratory Rate 17 , O2 SAT 95 , Room Air, O2 Flow Rate . Vital Sign Comment: [WNL] Latest Nur Fall Score: 45 Fall Risk: High Risk Safety Measures: Call light Within Reach, Bed Alarm Zone 1, Side Rails Side Rails x2, Bed position Low and Locked. Fall Precautions: Yellow Socks Yellow Gown Door Sign Patient Fall Education Report given to [HUA HOFFMANN].
[2020-09-06 08:00] VITALS: BP 149/76
--- NOTE | 2020-09-06 08:02 | NUR ---
NURSE NOTES: Received report from Leslie RN, pt a/a/o x4 laying in bed with no signs of distress or other issues at this time. Iv on the left AC gauge #20 running IVF @75ml/hr. call light within reach, bed in lowest position, side rales up x2. I will f/u as needed. Plan: Hepatobiliary exam as well as CT spine.
[2020-09-06] MEDS: Metoprolol Tartrate 12.5mg TAB ORAL SCH ×2 (08:25→17:51)
[2020-09-06] MEDS: Flonase Nasal Inhaler 16gm NASAL SCH ×2 (08:26→17:52)
[2020-09-06] MEDS: Pantoprazole Inj IVP SCH ×2 (08:26→21:27)
[2020-09-06] MEDS: Losartan 50mg tab ORAL SCH (08:26)
[2020-09-06] MEDS: Eliquis 5mg tablet ORAL SCH ×2 (08:26→17:51)
[2020-09-06] MEDS: Diclofenac 1% Gel 100gm TOPIC SCH ×4 (08:26→21:30)
[2020-09-06] MEDS: Morphine Sulfate 2mg/ml Inj(IV/IM USE ONLY) IVP PRN (11:27)
[2020-09-06 11:50] VITALS: BP 151/71
--- NOTE | 2020-09-06 13:10 | NUR ---
CASE MANAGEMENT:REVIEW 09/06/20 SI: CHEST/EPIGASTRIC PAIN CHOLELITHIASIS/GB SLUDGE 97.8 84 16 149/76 95% ON RA IS: ELIQUIS PO BID LOPRESSOR PO BID IV PROTONIX Q12 COZAAR PO QD HYDRALAZINE PO Q8HRS NORVASC PO QD IVF@ 75/HR IV MORPHINE Q4HRS PRN : MED/SURG STATUS 3 EAST DCP: FROM HOME PLAN: NPO FOR HIDA SCAN
[2020-09-06] MEDS: HYDROmorphone 1mg/ml Carpuject IVP PRN ×3 (13:18→22:21)
--- NOTE | 2020-09-06 13:18 | Consultation ---
History of Present Illness General Date patient seen: Sep 06, 2020 Reason for Hospitalization: Back Pain-No Injury Present Illness HPI This is a very pleasant 85-year-old female that presented to [facility] complaining of abdominal discomfort back pain. Patient states abdominal discomfort ongoing for a few months now in the epigastric right upper quadrant region. Intermittent nausea no vomiting. Admitted for further care and management. Ultrasound performed and noted labs noted surgery called to evaluate for abdominal pain. Patient seen, patient evaluated, chart reviewed. Ultrasound with gallbladder distention and sludge in the neck no specific stones identified no pericholecystic fluid no Del Cid's. Patient states ongoing pain for the few months has been cramping mainly in nature. 4 out of 10. Currently 4 out of 10. Intermittent. Unsure if relationship to food. Allergies: Coded Allergies: No Known Allergies (Unverified , 12/27/15) COVID-19 Screening Contact w/high risk pt: No Experienced COVID-19 symptoms?: No Medication History Scheduled Amlodipine Besylate* (Amlodipine Besylate*), 5 MG ORAL DAILY, (Reported) Ascorbic Acid* (Ascorbic Acid*), 500 MG ORAL DAILY, (Reported) Atorvastatin Calcium* (Atorvastatin Calcium*), 20 MG ORAL BEDTIME, (Reported) Cholecalciferol (Vitamin D3) (Vitamin D3*), 25 MCG PO DAILY, (Reported) Hydralazine Hcl* (Hydralazine Hcl*), Unknown Dose ORAL EVERY 6 HOURS, (Reported) Losartan/Hydrochlorothiazide 100-25 Tablet (Hyzaar 100-25 Tablet), 1 TAB ORAL DAILY, (Reported) Metoprolol Succinate* (Metoprolol Succinate*), 50 MG ORAL DAILY, (Reported) Omeprazole (Prilosec), 20 MG ORAL DAILY, (Reported) Sucralfate (Sucralfate), ORAL DAILY, (Reported) Scheduled PRN Acetaminophen* (Tylenol Extra Strength*), 500 MG ORAL TID PRN for Fever/Headache/Mild Pain, (Reported) Albuterol Sulfate* (Albuterol Sulfate Hfa*), 2 PUFF INH DAILY PRN for Shortness of Breath, (Reported) Calcium Carbonate (Tums), 200 MG PO DAILY PRN for STOMACH PAIN, (Reported) Diclofenac Sodium (Voltaren Arthritis Pain), TP DAILY PRN for ARTHRITIS PAIN, (Reported) Fluticasone Propionate* (Fluticasone Propionate*), 1 SPRAY NASAL DAILY PRN for ALLERGIES, (Reported) Discontinued Medications Acetaminophen (Acetaminophen 8 Hour), 650 MG ORAL Q6H, (Reported) Discontinued Reason: Pt stopped taking med Fluticasone Propionate (Fluticasone Propionate), 1 SPRAY NASAL TWICE A DAY Discontinued Reason: Pt stopped taking med Ipratropium/Albuterol Sulfate (DuoNeb 0.5-3(2.5)mg/3ml), 3 ML HHN Q4H PRN for Shortness of Breath Discontinued Reason: Pt stopped taking med Losartan Potassium (Losartan Potassium), 100 MG ORAL DAILY, (Reported) Discontinued Reason: Pt stopped taking med Metoprolol Tartrate (Metoprolol Tartrate), 12.5 MG ORAL DAILY Discontinued Reason: Pt stopped taking med Polyethylene Glycol 3350* (Miralax*), 17 GM ORAL HSPRN PRN for Constipation Discontinued Reason: Pt stopped taking med Rotigotine (Neupro), 1 EACH TD DAILY, (Reported) Discontinued Reason: Pt stopped taking med [lopressor], 50 MG PO DAILY, (Reported) Discontinued Reason: Pt stopped taking med Patient History History Provided By: Medical Record, PMD Healthcare decision maker Resuscitation status Advanced Directive on File Past Medical/Surgical History Past Medical/Surgical History: (1) Anemia (2) Diarrhea (3) Diverticulosis (4) Pleural effusion (5) Hyponatremia (6) Pancreatitis (7) Abdominal pain (8) CHF (congestive heart failure) (9) Chest pain (10) Elevated alkaline phosphatase level Review of Systems Review of Symptoms General ROS: no weight loss or fever Psychological ROS: no depression or mood changes, no memory loss Ophthalmic ROS: no visual changes or eye irritation ENT ROS: no nasal congestion, hearing loss, dizziness Allergy and Immunology ROS: no allergic symptoms or urticaria Hematological and Lymphatic ROS: no swollen glands, unusual bleeding or bruising Endocrine ROS: no polyuria, polydipsia, weight changes, temperature intolerance Respiratory ROS: no cough, shortness of breath, or wheezing Cardiovascular ROS: no chest pain or dyspnea on exertion Gastrointestinal ROS: denies abdominal pain, bright red blood in stool. Musculoskeletal ROS: no myalgias or arthralgias Neurological ROS: no TIA or stroke symptoms Dermatological ROS: no new or changing skin lesions, rashes or pruritis Physical Exam Physical Exam General appearance: alert, cooperative, no distress, appears stated age Head: Normocephalic, without obvious abnormality, atraumatic Eyes: conjunctivae/corneas clear. PERRL, EOM's intact. Fundi benign Throat: Lips, mucosa, and tongue normal. Teeth and gums normal Neck: supple, symmetrical, trachea midline, no adenopathy, thyroid: not enlarged, symmetric, no tenderness/mass/nodules, no carotid bruit and no JVD Lungs: clear to auscultation bilaterally Heart: regular rate and rhythm, S1, S2 normal, no murmur, click, rub or gallop Abdomen: soft, non-tender. Bowel sounds normal. No masses, no organomegaly prior midline incision patient unsure of what surgery she had prior Extremities: extremities normal, atraumatic, no cyanosis or edema Pulses: 2+ and symmetric Skin: Skin color, texture, turgor normal. No rashes or lesions Neurologic: Grossly normal Last 24 Hour Vital Signs Date Time Temp Pulse Resp B/P (MAP) Pulse Ox O2 Delivery O2 Flow Rate FiO2 09/06/20 11:50 97.8 72 18 151/71 (97) 95 09/06/20 09:00 Room Air 09/06/20 08:26 149/76 09/06/20 08:26 84 149/76 09/06/20 08:25 84 149/76 09/06/20 08:00 97.8 84 16 149/76 (100) 95 09/06/20 05:45 141/72 09/06/20 04:00 97.4 79 17 141/72 (95) 95 09/05/20 21:19 142/73 09/05/20 21:00 Room Air 09/05/20 20:00 97.7 73 16 142/73 (96) 98 09/05/20 17:29 105 147/70 09/05/20 16:00 97.8 105 18 147/70 (95) 96 09/05/20 13:51 128/80 Intake and Output 09/05/20 09/06/20 19:00 07:00 Intake Total 1500 ml Output Total 400 ml Balance 1500 ml -400 ml Intake Oral 1500 ml Output Urine Total 400 ml # Voids 10 1 # Bowel Movements 1 Laboratory Tests Test 09/05/20 14:15 09/06/20 05:00 Stool Occult Blood Positive (NEGATIVE) Sodium Level 135 MMOL/L (136-145) L Potassium Level 3.5 MMOL/L (3.5-5.1) Chloride Level 103 MMOL/L (98-107) Carbon Dioxide Level 22 MMOL/L (21-32) Anion Gap 10 mmol/L (5-15) Blood Urea Nitrogen 10 mg/dL (7-18) Creatinine 1.3 MG/DL (0.55-1.30) Estimat Glomerular Filtration Rate 39.0 mL/min (>60) Glucose Level 95 MG/DL (74-106) Calcium Level 8.5 MG/DL (8.5-10.1) Height (Feet): 5 Height (Inches): 1.00 Weight (Pounds): 152 Medications Current Medications Medications (Trade) Dose Ordered Sig/Nisha Route PRN Reason Start Time Stop Time Status Last Admin Dose Admin Acetaminophen (Tylenol) 500 mg TIDPRN PRN ORAL pain 1-3, T>100.5F, headache 09/03/20 15:15 10/03/20 15:14 09/06/20 05:46 Albuterol/ Ipratropium (Albuterol/ Ipratropium) 3 ml Q4H PRN HHN Shortness of Breath 09/03/20 15:15 09/08/20 15:14 Amlodipine Besylate (Norvasc) 5 mg DAILY ORAL 09/03/20 16:00 10/03/20 15:59 09/06/20 08:26 Apixaban (Eliquis) 5 mg BID ORAL 09/05/20 18:00 12/04/20 17:59 09/06/20 08:26 Diclofenac Sodium (Voltaren gel) 1 applic QID TOPIC 09/05/20 13:00 12/04/20 12:59 09/06/20 08:26 Fluticasone Propionate (Flonase) 1 spray TWICE A DAY NASAL 09/03/20 18:00 10/03/20 17:59 09/06/20 08:26 Hydralazine HCl (Apresoline) 50 mg Q8HR ORAL 09/03/20 16:00 12/02/20 15:59 09/06/20 05:45 Hydromorphone HCl (Dilaudid) 1 mg Q4H PRN IVP For Pain 09/04/20 07:45 09/11/20 07:44 09/04/20 08:41 Hyoscyamine Sulfate (Levsin) 0.125 mg Q4H PRN ORAL Abdominal cramps 09/03/20 22:45 10/03/20 22:44 09/04/20 04:59 Losartan Potassium (Cozaar) 100 mg DAILY ORAL 09/03/20 16:00 10/03/20 15:59 09/06/20 08:26 Metoprolol Tartrate (Lopressor) 12.5 mg BID ORAL 09/05/20 18:00 12/04/20 17:59 09/06/20 08:25 Morphine Sulfate (Morphine Sulfate) 1 mg Q4H PRN IVP For Pain 09/03/20 22:15 09/10/20 22:14 09/06/20 11:27 Pantoprazole (Protonix) 40 mg EVERY 12 HOURS IVP 09/03/20 23:00 10/03/20 22:59 09/06/20 08:26 Polyethylene Glycol (Miralax) 17 gm HSPRN PRN ORAL Constipation 09/03/20 15:15 10/03/20 15:14 09/05/20 00:03 Sodium Chloride 1,000 ml @ 75 mls/hr [id number] IV 09/03/20 15:30 10/03/20 15:29 09/06/20 09:49 Assessment/Plan Problem List: (1) Hyponatremia ICD Codes: E87.1 - Hypo-osmolality and hyponatremia SNOMED: 35727895 (2) Pancreatitis Assessment & Plan: Liver measures 15.5 cm in craniocaudal dimension. Echotexture of the liver is slightly heterogeneous, limiting evaluation for focal mass. There is no intrahepatic biliary ductal dilatation. The common bile duct measures 0.3 cm, within normal limits. The gallbladder is markedly distended with internal sludge near the gallbladder neck. No definite stone is appreciated, though the gallbladder neck is not well evaluated. There is no definite wall thickening. There is no sonographic Del Cid's sign. Correlate for recent pain medication administration, which would make sonographic Del Cid sign nondiagnostic. Pancreas is not well evaluated due to shadowing artifact from bowel gas. Right kidney measures 8.5 x 3.9 x 4.2 cm. The right renal parenchyma is not well evaluated due to shadowing artifact from ribs. There is no right renal hydronephrosis. There is cortical scarring of the right kidney at the mid to upper pole region. Left kidney measures 8.2 x 4.5 x 4.4 cm. The left renal parenchyma, is not well evaluated due to shadowing artifact from ribs. There is no left renal hydronephrosis. Probable areas of cortical scarring of the left kidney is noted. Spleen measures 8.2 cm, within normal limits. There is no significant free fluid. Aorta and IVC are not well evaluated due to limitations of the study described above. Aorta measures approximately 2.4 cm in the upper abdomen. IMPRESSION: Evaluation is limited due to body habitus and rib shadowing artifact. Gallbladder is markedly distended with internal sludge near the gallbladder neck. No definite stone is appreciated, though the gallbladder neck is not well evaluated. There is no definite gallbladder wall thickening. There is no sonographic Del Cid's sign. Correlate for recent pain medication administration, which would make sonographic Del Cid sign nondiagnostic. Findings are equivocal for acute cholecystitis. Correlation with HIDA scan is recommended. ICD Codes: K85.90 - Acute pancreatitis without necrosis or infection, unspecified SNOMED: 93582689 Qualifiers: Qualified Codes: K85.90 - Acute pancreatitis without necrosis or infection, unspecified (3) Abdominal pain Assessment & Plan: 85F abd pain for months. afebrile, HD Stable on admission lipase elevated now normal cramping pain US with sludge and distended GB. no josh elier fluid or inflammation of wall murphys negative HIDA pending IV abx okay for trial diet will follow with recs thank you ICD Codes: R10.9 - Unspecified abdominal pain SNOMED: 56457790 Qualifiers: Qualified Codes: R10.13 - Epigastric pain (4) CHF (congestive heart failure) ICD Codes: I50.9 - Heart failure, unspecified SNOMED: 50867669 (5) Chest pain ICD Codes: R07.9 - Chest pain, unspecified SNOMED: 80499921 (6) Elevated alkaline phosphatase level ICD Codes: R74.8 - Abnormal levels of other serum enzymes SNOMED: 839146545 (7) Anemia ICD Codes: D64.9 - Anemia, unspecified SNOMED: 906450128 (8) Diarrhea ICD Codes: R19.7 - Diarrhea, unspecified SNOMED: 50680309 (9) Diverticulosis ICD Codes: K57.90 - Diverticulosis of intestine, part unspecified, without perforation or abscess without bleeding SNOMED: 622421428 (10) Pleural effusion ICD Codes: J90 - Pleural effusion, not elsewhere classified SNOMED: 30522328 Wes Juarez Sep 06, 2020 13:18
[2020-09-06 15:56] VITALS: BP 138/70
--- NOTE | 2020-09-06 16:37 | Diagnostic Imaging Report ---
Indications: Back pain Technique: Spiral acquisitions obtained through the lumbar spine. Multiplanar reconstructions were generated. No IV contrast utilized. Total dose length product 481 mGycm. CTDIvol(s) 15 mGy. 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 This will be referred to as L1. The bony alignment is normal. The vertebral body heights are preserved. The disc spaces are preserved. There is [id number] apposition of the L2, L3, L4, L5, and to a slight extent the S1 spinous processes. There is ankylosis of the T12 and L1 spinous processes. No acute fractures. No dislocations. At L1-2, there is a right-sided subarticular osteophyte which may impinge slightly upon the lateral recess. There is bilateral mild facet arthrosis. The neural foramina are preserved. At L2-3, there is mild circumferential annular bulge. This does not result in any significant spinal canal narrowing. The neural foramina are preserved. At L3-4, there is some circumferential annular bulge. No significant spinal canal stenosis. At L4-5, there is circumferential annular bulge. This, in combination with facet and ligament flavum hypertrophy, results in mild narrowing of the spinal canal. There is bilateral facet arthrosis. At L5-S1, no significant disc bulge or protrusion, spinal stenosis, or neural foraminal stenosis. The included extra spinal soft tissues demonstrate bilateral pleural effusions. Impression: No acute bony trauma Degenerative changes, as detailed on a level by level basis above. The CT scanner at [facility] is accredited by the [employer] and the scans are performed using protocols designed to limit radiation exposure to as low as reasonably achievable to attain images of sufficient resolution adequate for diagnostic evaluation.
--- NOTE | 2020-09-06 18:07 | Cardiology Progress Note ---
Subjective DATE OF SERVICE: Sep 06, 2020 Still has abdominal pain. Passing gas, but bloated Has bruising now on right post shoulder and flank. Denies trauma or fall. Troponins negative Lipase level remains normal US reveals cholelithiasis and sludge EKG: (09/05) notable for AFib, rate controlled. Stool OB is positive Objective Last 24 Hour Vital Signs Date Time Temp Pulse Resp B/P (MAP) Pulse Ox O2 Delivery O2 Flow Rate FiO2 09/06/20 17:51 76 138/70 09/06/20 15:56 97.7 76 18 138/70 (92) 93 09/06/20 13:48 97.8 09/06/20 13:25 78 18 98 Room Air 21 76 18 94 09/06/20 13:18 151/71 09/06/20 11:50 97.8 72 18 151/71 (97) 95 09/06/20 11:27 97.8 09/06/20 09:00 Room Air 09/06/20 08:26 149/76 09/06/20 08:26 84 149/76 09/06/20 08:25 84 149/76 09/06/20 08:00 97.8 84 16 149/76 (100) 95 09/06/20 05:45 141/72 09/06/20 04:00 97.4 79 17 141/72 (95) 95 09/05/20 21:19 142/73 09/05/20 21:00 Room Air 09/05/20 20:00 97.7 73 16 142/73 (96) 98 ROS: unchanged from my evaluation 09/03/20 LUNGS: lungs clear bilaterally CARDIAC: normal rate, normal S1 and S2, irregularly irregular ABDOMEN: normal bowel sounds, soft, tender - mildly in midepigastric area, slightly distended, other - right flank bruising EXTREMITIES: No edema, other - right shoulder bruising posteriorly Laboratory Tests Test 09/06/20 05:00 Sodium Level 135 MMOL/L (136-145) L Potassium Level 3.5 MMOL/L (3.5-5.1) Chloride Level 103 MMOL/L (98-107) Carbon Dioxide Level 22 MMOL/L (21-32) Anion Gap 10 mmol/L (5-15) Blood Urea Nitrogen 10 mg/dL (7-18) Creatinine 1.3 MG/DL (0.55-1.30) Estimat Glomerular Filtration Rate 39.0 mL/min (>60) Glucose Level 95 MG/DL (74-106) Calcium Level 8.5 MG/DL (8.5-10.1) Assessment/Plan Assessment/Plan Abdominal Pain Elevated lipase on admit with distant hx of pancreatitis Non-cardiac chest pain; negative ischemia work up in past. Paroxysmal atrial fibrillation Low range lipid parameters. Cholelithiasis with sludge; possible cholecystitis Bruising of right side - spontaneous? Stool occult blood positive Await Arabella PETTIT apixaban Consider EGD Serial hemoglobin Continue beta dorys Kyle Lopez MD Sep 06, 2020 18:07
--- NOTE | 2020-09-06 18:17 | General Progress Note ---
Subjective ROS Limited/Unobtainable: No Constitutional: Reports: malaise, weakness HEENT: Reports: no symptoms Cardiovascular: Reports: no symptoms Respiratory: Reports: no symptoms Gastrointestinal/Abdominal: Reports: abdominal pain, nausea Genitourinary: Reports: no symptoms Neurologic/Psychiatric: Reports: no symptoms Endocrine: Reports: no symptoms Hematologic/Lymphatic: Reports: no symptoms Allergies: Coded Allergies: No Known Allergies (Unverified , 12/27/15) All Systems: reviewed and negative except above Subjective still with abd pain and now back pain. no fevers or chills. mild sob. +afib on ekg. no melena or brbpr. stool ob + noted to have bruising. d/w cardiology. Objective Last 24 Hour Vital Signs Date Time Temp Pulse Resp B/P (MAP) Pulse Ox O2 Delivery O2 Flow Rate FiO2 09/06/20 17:51 76 138/70 09/06/20 15:56 97.7 76 18 138/70 (92) 93 09/06/20 13:48 97.8 09/06/20 13:25 78 18 98 Room Air 21 76 18 94 09/06/20 13:18 151/71 09/06/20 11:50 97.8 72 18 151/71 (97) 95 09/06/20 11:27 97.8 09/06/20 09:00 Room Air 09/06/20 08:26 149/76 09/06/20 08:26 84 149/76 09/06/20 08:25 84 149/76 09/06/20 08:00 97.8 84 16 149/76 (100) 95 09/06/20 05:45 141/72 09/06/20 04:00 97.4 79 17 141/72 (95) 95 09/05/20 21:19 142/73 09/05/20 21:00 Room Air 09/05/20 20:00 97.7 73 16 142/73 (96) 98 Intake and Output 09/05/20 09/06/20 19:00 07:00 Intake Total 1500 ml Output Total 400 ml Balance 1500 ml -400 ml Intake Oral 1500 ml Output Urine Total 400 ml # Voids 10 1 # Bowel Movements 1 Laboratory Tests 09/06/20 05:00: Sodium Level 135L, Potassium Level 3.5, Chloride Level 103, Carbon Dioxide Level 22, Anion Gap 10, Blood Urea Nitrogen 10, Creatinine 1.3, Estimat Glomerular Filtration Rate 39.0, Glucose Level 95, Calcium Level 8.5 Height (Feet): 5 Height (Inches): 1.00 Weight (Pounds): 152 Objective General Appearance: WD/WN, no apparent distress, alert EENT: PERRL/EOMI Neck: non-tender, normal alignment, supple Cardiovascular: normal rate, regular rhythm Respiratory/Chest: chest wall non-tender, lungs clear, normal breath sounds, no respiratory distress Abdomen: normal bowel sounds, non tender, soft, no organomegaly, no mass Edema: no edema noted Arm (L), no edema noted Arm (R) Edema: trace edema 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, no motor/sensory deficits, alert, oriented x 3, responsive Assessment/Plan Problem List: (1) Chest pain ICD Codes: R07.9 - Chest pain, unspecified SNOMED: 13810592 (2) Abdominal pain ICD Codes: R10.9 - Unspecified abdominal pain SNOMED: 70767879 Qualifiers: Qualified Codes: R10.13 - Epigastric pain (3) Hyponatremia ICD Codes: E87.1 - Hypo-osmolality and hyponatremia SNOMED: 56778237 (4) CHF (congestive heart failure) ICD Codes: I50.9 - Heart failure, unspecified SNOMED: 56035643 (5) Elevated alkaline phosphatase level ICD Codes: R74.8 - Abnormal levels of other serum enzymes SNOMED: 934225396 Status: stable, progressing Assessment/Plan: HIDA scan surgery eval pain rx hold eliquis due to bruising and ob+ stool cards follow up re: afib ct lumbar spine- reviewed. deg disc dz stress ulcer prophylaxis pain rx increased Eliud Demarco MD Sep 06, 2020 18:17
--- NOTE | 2020-09-06 19:01 | Diagnostic Imaging Report ---
Indications: Abdominal pain Technique: IV administration 6.6 mCi 99 M technetium Choletec. Serial images obtained over the abdomen for one hour Comparison: None Findings: Prompt tracer uptake within the liver. Extrahepatic bile ducts are seen at 30 minutes. Excretion into the duodenum demonstrated at 60 minutes. Gallbladder visualized at 22 minutes. Impression: Negative
--- NOTE | 2020-09-06 19:27 | NUR ---
NURSE HAND-OFF: Important Events on Shift:stable condition Patient Status: full code Diet: clear liquid diet Pending Orders: am labs Pending Results/Labs:amlabs Pending MD notification:[] Latest Vital Signs: Temperature 97.7 , Pulse 76 , B/P 138 /70 , Respiratory Rate 18 , O2 SAT 93 , Room Air, O2 Flow Rate . Vital Sign Comment: stable however c/o pain 09/04 Latest Nur Fall Score: 45 Fall Risk: High Risk Safety Measures: Call light Within Reach, Bed Alarm Zone 1, Side Rails Side Rails x2, Bed position Low and Locked. Fall Precautions: needs supervision upon ambulation Yellow Socks Yellow Gown Door Sign Patient Fall Education Report given to Leslie SEQUEIRA, pt in stable condition. - pt is able to tolerate clear liquids with no n/v. Today test results: 09/06 CT spine: negative 09/06: Hedal: negative
--- NOTE | 2020-09-06 19:34 | NUR ---
NURSES NOTE: Pt in bed, Armenian speaker. Interpretation done by AM RN. Pt denies pain or discomfort currently. No outward s/s of distress noted. Breathing pattern is even and unlabored on RA. Clear liquid diet. Ambulatory with assist. IV L wrist, patent, infusing IVF without incident. All due medications will be administered. Bed at lowest level. Call light within reach. Pt will continue to be monitored.
[2020-09-06 20:00] VITALS: BP 123/80
[2020-09-06] MEDS: Hyoscyamine 0.125mg tab ORAL PRN (21:27)
--- NOTE | 2020-09-06 22:20 | General Progress Note ---
Subjective Allergies: Coded Allergies: No Known Allergies (Unverified , 12/27/15) Subjective above noted feels OK Occ Abd pain s/p HIDA --> negative Objective Last 24 Hour Vital Signs Date Time Temp Pulse Resp B/P (MAP) Pulse Ox O2 Delivery O2 Flow Rate FiO2 09/06/20 21:27 123/80 09/06/20 20:00 98.0 78 17 123/80 (94) 92 09/06/20 18:21 97.7 09/06/20 17:51 76 138/70 09/06/20 15:56 97.7 76 18 138/70 (92) 93 09/06/20 13:48 97.8 09/06/20 13:25 78 18 98 Room Air 21 76 18 94 09/06/20 13:18 151/71 09/06/20 11:50 97.8 72 18 151/71 (97) 95 09/06/20 11:27 97.8 09/06/20 09:00 Room Air 09/06/20 08:26 149/76 09/06/20 08:26 84 149/76 09/06/20 08:25 84 149/76 09/06/20 08:00 97.8 84 16 149/76 (100) 95 09/06/20 05:45 141/72 09/06/20 04:00 97.4 79 17 141/72 (95) 95 Intake and Output 09/05/20 09/06/20 19:00 07:00 Intake Total 1500 ml Output Total 400 ml Balance 1500 ml -400 ml Intake Oral 1500 ml Output Urine Total 400 ml # Voids 10 1 # Bowel Movements 1 Laboratory Tests 09/06/20 05:00: Sodium Level 135L, Potassium Level 3.5, Chloride Level 103, Carbon Dioxide Level 22, Anion Gap 10, Blood Urea Nitrogen 10, Creatinine 1.3, Estimat Glomerular Filtration Rate 39.0, Glucose Level 95, Calcium Level 8.5 Height (Feet): 5 Height (Inches): 1.00 Weight (Pounds): 152 Objective WDWN woman NCAT supple CY+TA RR Abd soft ND NT no edema Assessment/Plan Status: stable, progressing Assessment/Plan: Assessment - 2 mo of intermittent post parandial epigastric pain - cholelithiasis / GB sludge - h/o gastritis - mild anemia --> now OB (+) - HTN - hypercholesterolemia Recommendations - monitor labs - Protonix - EGD/Colon later this wk (can do as outpatient if d/c'd) Teodoro Huertas MD Sep 06, 2020 22:20
--- NOTE | 2020-09-07 03:30 | Consultation ---
DATE OF CONSULTATION: 09/06/2020 CONSULTING PHYSICIAN: Saroj Kent MD. HISTORY OF PRESENT ILLNESS: The patient is an 85-year-old female, [place] speaking pleasant lady with a history of depressed mood, anxiety, , who has been admitted to the hospital for chest pain, abdominal pain. The patient with anxiety, insomnia, depressed mood. PAST MEDICAL HISTORY: Significant for hyperlipidemia, hypertension, , anemia. ALLERGIES: No known drug allergies. SUBSTANCE ABUSE HISTORY: No known history of illicit drug use or alcohol. MENTAL STATUS EXAMINATION: The patient is alert and oriented times self, place, and situation. Pleasant, [place] speaking. Mood is anxious. Affect is blunted, congruent with mood. Thought process linear. Thought content, no suicidal or homicidal ideation. Cognition is intact. Insight and judgment is fair. ASSESSMENT: [place] I Anxiety disorder. [place] II Deferred. [place] III Hypertension. [place] IV Low. [place] V 25. PLAN: 1. The patient is currently started on Remeron 7.5 at bedtime. 2. Provide the patient with reality orientation and supportive therapy. Saroj Kent M.D. DR: PROSPER JOB#: [id number] CC:
[2020-09-07 04:00] VITALS: BP 153/80
--- NOTE | 2020-09-07 05:04 | NUR ---
NURSES NOTE: Pt spoken to multiple times to use call light to use the commode, in Maltese. She agrees but does not use light. Alarm on. RN in room multiple times NOC shift to assure pt safety.
[2020-09-07 05:34] LABS: BASOPHILS % (AUTO) 0.9 % (0.0-2.0); EOSINOPHILS % (AUTO) 4.4 % (0.0-3.0); HEMATOCRIT 32.2 % (37.0-47.0); HEMOGLOBIN 10.8 G/DL (12.0-16.0); LYMPHOCYTES % (AUTO) 20.2 % (20.0-45.0); MEAN CORPUSCULAR VOLUME 89 FL (80-99); MONOCYTES % (AUTO) 8.7 % (1.0-10.0); NEUTROPHILS % (AUTO) 65.9 % (45.0-75.0); PLATELET COUNT 179 K/UL (150-450); RED BLOOD COUNT 3.62 M/UL (4.20-5.40); RED CELL DISTRIBUTION WIDTH 12.2 % (11.6-14.8); WHITE BLOOD COUNT 7.4 K/UL (4.8-10.8)
[2020-09-07 05:58] LABS: ALBUMIN 3.2 G/DL (3.4-5.0); ALBUMIN/GLOBULIN RATIO 0.8 (1.0-2.7); BILIRUBIN,TOTAL 0.9 MG/DL (0.2-1.0); CALCIUM 8.8 MG/DL (8.5-10.1); CREATININE 1.1 MG/DL (0.55-1.30); POTASSIUM 3.6 MMOL/L (3.5-5.1)
[2020-09-07] MEDS: HydrALAZINE 50mg tab ORAL SCH ×3 (06:05→20:12)
--- NOTE | 2020-09-07 07:32 | NUR ---
NURSE NOTES: Received report from Leslie SEQUEIRA, pt sleeping in bed with no signs of distress or other issues at this time. Iv on the Left AC gauge 20 running IVF@75ml/hr. call light within reach, bed in lowest position. side rales up x2. I will f/u as needed.
--- NOTE | 2020-09-07 07:33 | NUR ---
NURSE HAND-OFF: Important Events on Shift:[NONE] Patient Status: [STABLE] Diet: [CLEAR LIQUID DIET] Pending Orders: [NONE] Pending Results/Labs:[C reactive protein 6.3. Endorsed to morning nurse] Pending MD notification:[C reactive proteins] Latest Vital Signs: Temperature 97.6 , Pulse 72 , B/P 153 /80 , Respiratory Rate 18 , O2 SAT 93 , Room Air, O2 Flow Rate . Vital Sign Comment: [WNL] Latest Nur Fall Score: 45 Fall Risk: High Risk Safety Measures: Call light Within Reach, Bed Alarm Zone 1, Side Rails Side Rails x2, Bed position Low and Locked. Fall Precautions: Yellow Socks Yellow Gown Door Sign Patient Fall Education Report given to [HUA HOFFMANN].
[2020-09-07 08:00] VITALS: BP 133/70
[2020-09-07] MEDS ORDERED: Golytely 4L ORAL ONE (09:00)
[2020-09-07] MEDS: Metoprolol Tartrate 12.5mg TAB ORAL SCH ×2 (09:26→17:26)
[2020-09-07] MEDS: Diclofenac 1% Gel 100gm TOPIC SCH ×4 (09:27→20:11)
[2020-09-07] MEDS: Pantoprazole Inj IVP SCH ×2 (09:27→20:11)
[2020-09-07] MEDS: Losartan 50mg tab ORAL SCH (09:27)
[2020-09-07] MEDS: Flonase Nasal Inhaler 16gm NASAL SCH ×2 (09:27→17:27)
[2020-09-07] MEDS: HYDROmorphone 1mg/ml Carpuject IVP PRN (10:06)
--- NOTE | 2020-09-07 10:56 | General Progress Note ---
Subjective ROS Limited/Unobtainable: No Constitutional: Reports: malaise, weakness HEENT: Reports: no symptoms Cardiovascular: Reports: no symptoms Respiratory: Reports: no symptoms Gastrointestinal/Abdominal: Reports: abdominal pain Genitourinary: Reports: no symptoms Neurologic/Psychiatric: Reports: no symptoms Endocrine: Reports: no symptoms Hematologic/Lymphatic: Reports: no symptoms Allergies: Coded Allergies: No Known Allergies (Unverified , 12/27/15) All Systems: reviewed and negative except above Subjective HIDA scan negative. still having abd pain. better controlled with iv dilaudid. no vomiting. GI noted. Objective Last 24 Hour Vital Signs Date Time Temp Pulse Resp B/P (MAP) Pulse Ox O2 Delivery O2 Flow Rate FiO2 09/07/20 09:27 133/70 09/07/20 09:26 76 133/70 09/07/20 09:26 76 133/70 09/07/20 09:00 Room Air 09/07/20 08:00 97.5 76 18 133/70 (91) 94 09/07/20 06:05 153/80 09/07/20 04:00 97.6 72 18 153/80 (104) 93 09/06/20 21:27 123/80 09/06/20 21:00 Room Air 09/06/20 20:00 98.0 78 17 123/80 (94) 92 09/06/20 18:21 97.7 09/06/20 17:51 76 138/70 09/06/20 15:56 97.7 76 18 138/70 (92) 93 09/06/20 13:48 97.8 09/06/20 13:25 78 18 98 Room Air 21 76 18 94 09/06/20 13:18 151/71 09/06/20 11:50 97.8 72 18 151/71 (97) 95 09/06/20 11:27 97.8 Intake and Output 09/06/20 09/07/20 19:00 07:00 Intake Total 850 ml 725 ml Balance 850 ml 725 ml Intake Oral 850 ml 500 ml IV Total 225 ml # Voids 4 4 Laboratory Tests 09/07/20 04:50: White Blood Count 7.4, Red Blood Count 3.62L, Hemoglobin 10.8L, Hematocrit 32.2L , Mean Corpuscular Volume 89, Mean Corpuscular Hemoglobin 29.8, Mean Corpuscular Hemoglobin Concent 33.5, Red Cell Distribution Width 12.2, Platelet Count 179, Mean Platelet Volume 6.2L, Neutrophils (%) (Auto) 65.9, Lymphocytes (%) (Auto) 20.2, Monocytes (%) (Auto) 8.7, Eosinophils (%) (Auto) 4.4H, Basophils (%) (Auto) 0.9, Activated Partial Thromboplast Time 33, Sodium Level 138, Potassium Level 3.6, Chloride Level 103, Carbon Dioxide Level 23, Anion Gap 12, Blood Urea Nitrogen 9, Creatinine 1.1, Estimat Glomerular Filtration Rate 47.3, Glucose Level 97, Lactic Acid Level 1.10, Calcium Level 8.8, Total Bilirubin 0.9, Aspartate Amino Transf (AST/SGOT) 29, Alanine Aminotransferase (ALT/SGPT) 26, Alkaline Phosphatase 66, C-Reactive Protein, Quantitative 6.3H, Total Protein 7.0, Albumin 3.2L, Globulin 3.8, Albumin/Globulin Ratio 0.8L, Amylase Level 46, Lipase 119 Height (Feet): 5 Height (Inches): 1.00 Weight (Pounds): 152 Objective General Appearance: WD/WN, no apparent distress, alert EENT: PERRL/EOMI Neck: non-tender, normal alignment, supple Cardiovascular: normal rate, regular rhythm Respiratory/Chest: chest wall non-tender, lungs clear, normal breath sounds, no respiratory distress Abdomen: normal bowel sounds, non tender, soft, no organomegaly, no mass Edema: no edema noted Arm (L), no edema noted Arm (R) Edema: trace edema 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, no motor/sensory deficits, alert, oriented x 3, responsive Assessment/Plan Problem List: (1) Chest pain ICD Codes: R07.9 - Chest pain, unspecified SNOMED: 37372208 (2) Abdominal pain ICD Codes: R10.9 - Unspecified abdominal pain SNOMED: 79402705 Qualifiers: Qualified Codes: R10.13 - Epigastric pain (3) Hyponatremia ICD Codes: E87.1 - Hypo-osmolality and hyponatremia SNOMED: 02129729 (4) CHF (congestive heart failure) ICD Codes: I50.9 - Heart failure, unspecified SNOMED: 71281823 (5) Elevated alkaline phosphatase level ICD Codes: R74.8 - Abnormal levels of other serum enzymes SNOMED: 409874405 Status: stable, progressing Assessment/Plan: HIDA scan negative surgery eval appreciated pain rx- in pain rx eliquis on hold cards follow up re: afib ct lumbar spine- reviewed. deg disc dz stress ulcer prophylaxis pain rx increased will d/w cards AC. May need to proceed with endoscopy if AC needed for afib. will d/w cards/GI Eliud Demarco MD Sep 07, 2020 10:56
--- NOTE | 2020-09-07 10:57 | Surgery Progress Note ---
Surgery Progress Note Subjective Additional Comments afebrile HD stable labs okay HIDA negative abd pain Objective Last 24 Hour Vital Signs Date Time Temp Pulse Resp B/P (MAP) Pulse Ox O2 Delivery O2 Flow Rate FiO2 09/07/20 09:27 133/70 09/07/20 09:26 76 133/70 09/07/20 09:26 76 133/70 09/07/20 09:00 Room Air 09/07/20 08:00 97.5 76 18 133/70 (91) 94 09/07/20 06:05 153/80 09/07/20 04:00 97.6 72 18 153/80 (104) 93 09/06/20 21:27 123/80 09/06/20 21:00 Room Air 09/06/20 20:00 98.0 78 17 123/80 (94) 92 09/06/20 18:21 97.7 09/06/20 17:51 76 138/70 09/06/20 15:56 97.7 76 18 138/70 (92) 93 09/06/20 13:48 97.8 09/06/20 13:25 78 18 98 Room Air 21 76 18 94 09/06/20 13:18 151/71 09/06/20 11:50 97.8 72 18 151/71 (97) 95 09/06/20 11:27 97.8 I&O Intake and Output 09/06/20 09/07/20 19:00 07:00 Intake Total 850 ml 725 ml Balance 850 ml 725 ml Intake Oral 850 ml 500 ml IV Total 225 ml # Voids 4 4 Cardiovascular: RSR Respiratory: clear Abdomen: soft, flat, non-tender, present bowel sounds Extremities: no edema, no tenderness, no cyanosis Laboratory Tests Test 09/07/20 04:50 White Blood Count 7.4 K/UL (4.8-10.8) Red Blood Count 3.62 M/UL (4.20-5.40) L Hemoglobin 10.8 G/DL (12.0-16.0) L Hematocrit 32.2 % (37.0-47.0) L Mean Corpuscular Volume 89 FL (80-99) Mean Corpuscular Hemoglobin 29.8 PG (27.0-31.0) Mean Corpuscular Hemoglobin Concent 33.5 G/DL (32.0-36.0) Red Cell Distribution Width 12.2 % (11.6-14.8) Platelet Count 179 K/UL (150-450) Mean Platelet Volume 6.2 FL (6.5-10.1) L Neutrophils (%) (Auto) 65.9 % (45.0-75.0) Lymphocytes (%) (Auto) 20.2 % (20.0-45.0) Monocytes (%) (Auto) 8.7 % (1.0-10.0) Eosinophils (%) (Auto) 4.4 % (0.0-3.0) H Basophils (%) (Auto) 0.9 % (0.0-2.0) Activated Partial Thromboplast Time 33 SEC (23-33) Sodium Level 138 MMOL/L (136-145) Potassium Level 3.6 MMOL/L (3.5-5.1) Chloride Level 103 MMOL/L (98-107) Carbon Dioxide Level 23 MMOL/L (21-32) Anion Gap 12 mmol/L (5-15) Blood Urea Nitrogen 9 mg/dL (7-18) Creatinine 1.1 MG/DL (0.55-1.30) Estimat Glomerular Filtration Rate 47.3 mL/min (>60) Glucose Level 97 MG/DL (74-106) Lactic Acid Level 1.10 mmol/L (0.4-2.0) Calcium Level 8.8 MG/DL (8.5-10.1) Total Bilirubin 0.9 MG/DL (0.2-1.0) Aspartate Amino Transf (AST/SGOT) 29 U/L (15-37) Alanine Aminotransferase (ALT/SGPT) 26 U/L (12-78) Alkaline Phosphatase 66 U/L (46-116) C-Reactive Protein, Quantitative 6.3 mg/dL (0.00-0.90) H Total Protein 7.0 G/DL (6.4-8.2) Albumin 3.2 G/DL (3.4-5.0) L Globulin 3.8 g/dL Albumin/Globulin Ratio 0.8 (1.0-2.7) L Amylase Level 46 U/L (25-115) Lipase 119 U/L (73-393) Plan Problems: (1) Hyponatremia (2) Pancreatitis Assessment & Plan: Liver measures 15.5 cm in craniocaudal dimension. Echotexture of the liver is slightly heterogeneous, limiting evaluation for focal mass. There is no intrahepatic biliary ductal dilatation. The common bile duct measures 0.3 cm, within normal limits. The gallbladder is markedly distended with internal sludge near the gallbladder neck. No definite stone is appreciated, though the gallbladder neck is not well evaluated. There is no definite wall thickening. There is no sonographic Del Cid's sign. Correlate for recent pain medication administration, which would make sonographic Del Cid sign nondiagnostic. Pancreas is not well evaluated due to shadowing artifact from bowel gas. Right kidney measures 8.5 x 3.9 x 4.2 cm. The right renal parenchyma is not well evaluated due to shadowing artifact from ribs. There is no right renal hydronephrosis. There is cortical scarring of the right kidney at the mid to upper pole region. Left kidney measures 8.2 x 4.5 x 4.4 cm. The left renal parenchyma, is not well evaluated due to shadowing artifact from ribs. There is no left renal hydronephrosis. Probable areas of cortical scarring of the left kidney is noted. Spleen measures 8.2 cm, within normal limits. There is no significant free fluid. Aorta and IVC are not well evaluated due to limitations of the study described above. Aorta measures approximately 2.4 cm in the upper abdomen. IMPRESSION: Evaluation is limited due to body habitus and rib shadowing artifact. Gallbladder is markedly distended with internal sludge near the gallbladder neck. No definite stone is appreciated, though the gallbladder neck is not well evaluated. There is no definite gallbladder wall thickening. There is no sonographic Del Cid's sign. Correlate for recent pain medication administration, which would make sonographic Del Cid sign nondiagnostic. Findings are equivocal for acute cholecystitis. Correlation with HIDA scan is recommended. (3) Abdominal pain Assessment & Plan: 85F abd pain for months. afebrile, HD Stable on admission lipase elevated now normal cramping pain US with sludge and distended GB. no josh elier fluid or inflammation of wall murphys negative HIDA pending - negative IV abx labs and imaging reviewed. no organic finding to correlate with symptoms. no acute surgical intervention planned appreciate GI input okay for trial diet will follow with recs thank you (4) CHF (congestive heart failure) (5) Chest pain (6) Elevated alkaline phosphatase level (7) Anemia (8) Diarrhea (9) Diverticulosis (10) Pleural effusion Wes Juarez Sep 07, 2020 10:57
[2020-09-07 12:00] VITALS: BP 138/74
[2020-09-07 16:00] VITALS: BP 158/88
--- NOTE | 2020-09-07 19:20 | NUR ---
NURSE HAND-OFF: Important Events on Shift: Patient Status: full code/ stable Diet: clear to NPO after midnight Pending Orders: EGD and Colonoscopy Pending Results/Labs:am labs Pending MD notification: Latest Vital Signs: Temperature 97.6 , Pulse 99 , B/P 158 /88 , Respiratory Rate 20 , O2 SAT 93 , Room Air, O2 Flow Rate . Vital Sign Comment: stable Latest Nur Fall Score: 45 Fall Risk: High Risk Safety Measures: Call light Within Reach, Bed Alarm Zone 1, Side Rails Side Rails x2, Bed position Low and Locked. Fall Precautions: Yellow Socks Yellow Gown Door Sign Patient Fall Education Report given to Ruthann RN, pt in stable condition. - Incoming nurse is aware that Dr. Fallon will put orders for EGD and Colonoscopy consent. awaiting for orders.
--- NOTE | 2020-09-07 19:40 | General Progress Note ---
Subjective Allergies: Coded Allergies: No Known Allergies (Unverified , 12/27/15) Subjective above noted feels OK Occ Abd pain s/p HIDA --> negative On schedule for EGD/Colon in am Objective Last 24 Hour Vital Signs Date Time Temp Pulse Resp B/P (MAP) Pulse Ox O2 Delivery O2 Flow Rate FiO2 09/07/20 17:26 99 158/88 09/07/20 16:00 97.6 99 20 158/88 (111) 93 09/07/20 13:22 138/74 09/07/20 12:00 98.1 74 20 138/74 (95) 94 09/07/20 10:36 97.5 09/07/20 09:27 133/70 09/07/20 09:26 76 133/70 09/07/20 09:26 76 133/70 09/07/20 09:00 Room Air 09/07/20 08:00 97.5 76 18 133/70 (91) 94 09/07/20 06:05 153/80 09/07/20 04:00 97.6 72 18 153/80 (104) 93 09/06/20 21:27 123/80 09/06/20 21:00 Room Air 09/06/20 20:00 98.0 78 17 123/80 (94) 92 Intake and Output 09/06/20 09/07/20 19:00 07:00 Intake Total 850 ml 725 ml Balance 850 ml 725 ml Intake Oral 850 ml 500 ml IV Total 225 ml # Voids 4 4 Laboratory Tests 09/07/20 04:50: White Blood Count 7.4, Red Blood Count 3.62L, Hemoglobin 10.8L, Hematocrit 32.2L , Mean Corpuscular Volume 89, Mean Corpuscular Hemoglobin 29.8, Mean Corpuscular Hemoglobin Concent 33.5, Red Cell Distribution Width 12.2, Platelet Count 179, Mean Platelet Volume 6.2L, Neutrophils (%) (Auto) 65.9, Lymphocytes (%) (Auto) 20.2, Monocytes (%) (Auto) 8.7, Eosinophils (%) (Auto) 4.4H, Basophils (%) (Auto) 0.9, Activated Partial Thromboplast Time 33, Sodium Level 138, Potassium Level 3.6, Chloride Level 103, Carbon Dioxide Level 23, Anion Gap 12, Blood Urea Nitrogen 9, Creatinine 1.1, Estimat Glomerular Filtration Rate 47.3, Glucose Level 97, Lactic Acid Level 1.10, Calcium Level 8.8, Total Bilirubin 0.9, Aspartate Amino Transf (AST/SGOT) 29, Alanine Aminotransferase (ALT/SGPT) 26, Alkaline Phosphatase 66, C-Reactive Protein, Quantitative 6.3H, Total Protein 7.0, Albumin 3.2L, Globulin 3.8, Albumin/Globulin Ratio 0.8L, Amylase Level 46, Lipase 119 Height (Feet): 5 Height (Inches): 1.00 Weight (Pounds): 152 Objective WDWN woman NCAT supple CY+TA RR Abd soft ND NT no edema Assessment/Plan Status: stable, progressing Assessment/Plan: Assessment - 2 mo of intermittent post parandial epigastric pain - cholelithiasis / GB sludge - h/o gastritis - mild anemia --> now OB (+) - HTN - hypercholesterolemia Recommendations - monitor labs - Protonix - EGD/Colon in am - GI prep Teodoro Keys MD Sep 07, 2020 19:40
--- NOTE | 2020-09-07 19:57 | NUR ---
NURSE NOTES: Received patient awake, alert, verbal, no SOB noted, using bedside commode, on bowel prep.
[2020-09-07 20:08] VITALS: BP 138/87
--- NOTE | 2020-09-07 23:21 | Cardiology Progress Note ---
Subjective DATE OF SERVICE: Sep 07, 2020 Still with abdominal pain. No CP Troponins negative Lipase level now normal US reveals cholelithiasis and sludge; HIDA scan negative. Repeat EKG 09/05/20 reveals atrial fibrillation with adequate rate control. Anticoagulation started and stopped within 24hrs due to bruising and heme positive stool. Objective Last 24 Hour Vital Signs Date Time Temp Pulse Resp B/P (MAP) Pulse Ox O2 Delivery O2 Flow Rate FiO2 09/07/20 20:38 Room Air 09/07/20 20:12 138/87 09/07/20 20:08 97.7 95 18 138/87 (104) 93 09/07/20 17:26 99 158/88 09/07/20 16:00 97.6 99 20 158/88 (111) 93 09/07/20 13:22 138/74 09/07/20 12:00 98.1 74 20 138/74 (95) 94 09/07/20 10:36 97.5 09/07/20 09:27 133/70 09/07/20 09:26 76 133/70 09/07/20 09:26 76 133/70 09/07/20 09:00 Room Air 09/07/20 08:00 97.5 76 18 133/70 (91) 94 09/07/20 06:05 153/80 09/07/20 04:00 97.6 72 18 153/80 (104) 93 ROS: unchanged from my evaluation 09/03/20 LUNGS: lungs clear bilaterally CARDIAC: normal rate, normal S1 and S2, irregularly irregular ABDOMEN: normal bowel sounds, soft, tender - mildly in midepigastric area, slightly distended, other - right flank bruising EXTREMITIES: No edema, other - right shoulder bruising posteriorly Laboratory Tests Test 09/07/20 04:50 White Blood Count 7.4 K/UL (4.8-10.8) Red Blood Count 3.62 M/UL (4.20-5.40) L Hemoglobin 10.8 G/DL (12.0-16.0) L Hematocrit 32.2 % (37.0-47.0) L Mean Corpuscular Volume 89 FL (80-99) Mean Corpuscular Hemoglobin 29.8 PG (27.0-31.0) Mean Corpuscular Hemoglobin Concent 33.5 G/DL (32.0-36.0) Red Cell Distribution Width 12.2 % (11.6-14.8) Platelet Count 179 K/UL (150-450) Mean Platelet Volume 6.2 FL (6.5-10.1) L Neutrophils (%) (Auto) 65.9 % (45.0-75.0) Lymphocytes (%) (Auto) 20.2 % (20.0-45.0) Monocytes (%) (Auto) 8.7 % (1.0-10.0) Eosinophils (%) (Auto) 4.4 % (0.0-3.0) H Basophils (%) (Auto) 0.9 % (0.0-2.0) Activated Partial Thromboplast Time 33 SEC (23-33) Sodium Level 138 MMOL/L (136-145) Potassium Level 3.6 MMOL/L (3.5-5.1) Chloride Level 103 MMOL/L (98-107) Carbon Dioxide Level 23 MMOL/L (21-32) Anion Gap 12 mmol/L (5-15) Blood Urea Nitrogen 9 mg/dL (7-18) Creatinine 1.1 MG/DL (0.55-1.30) Estimat Glomerular Filtration Rate 47.3 mL/min (>60) Glucose Level 97 MG/DL (74-106) Lactic Acid Level 1.10 mmol/L (0.4-2.0) Calcium Level 8.8 MG/DL (8.5-10.1) Total Bilirubin 0.9 MG/DL (0.2-1.0) Aspartate Amino Transf (AST/SGOT) 29 U/L (15-37) Alanine Aminotransferase (ALT/SGPT) 26 U/L (12-78) Alkaline Phosphatase 66 U/L (46-116) C-Reactive Protein, Quantitative 6.3 mg/dL (0.00-0.90) H Total Protein 7.0 G/DL (6.4-8.2) Albumin 3.2 G/DL (3.4-5.0) L Globulin 3.8 g/dL Albumin/Globulin Ratio 0.8 (1.0-2.7) L Amylase Level 46 U/L (25-115) Lipase 119 U/L (73-393) Assessment/Plan Assessment/Plan Abdominal Pain Elevated lipase on admit with distant hx of pancreatitis Non-cardiac chest pain; negative ischemia work up in past. Low range lipid parameters. Paroxysmal atrial fibrillation Bruising and heme positive stool on anticoagulation. Stable for EGD/colonoscopy from cardiovascular standpoint Beta dorys for rate control; additional IV dosing for rapid rates during GI procedure. Holding anticoagulation. Kyle Lopez MD Sep 07, 2020 23:21
[2020-09-08] VITALS (9 sets, daily range): BP systolic 101–140; BP diastolic 52–86
--- NOTE | 2020-09-08 00:12 | Psych Consult Progress Note ---
Psychiatry Progress Note Psychiatry Progress Note Medications Current Medications Medications (Trade) Dose Ordered Sig/Nisha Route PRN Reason Start Time Stop Time Status Last Admin Dose Admin Acetaminophen (Tylenol) 500 mg TIDPRN PRN ORAL pain 1-3, T>100.5F, headache 09/03/20 15:15 10/03/20 15:14 09/06/20 05:46 Albuterol/ Ipratropium (Albuterol/ Ipratropium) 3 ml Q4H PRN HHN Shortness of Breath 09/03/20 15:15 09/08/20 15:14 09/06/20 13:23 Amlodipine Besylate (Norvasc) 5 mg DAILY ORAL 09/03/20 16:00 10/03/20 15:59 09/07/20 09:26 Diclofenac Sodium (Voltaren gel) 1 applic QID TOPIC 09/05/20 13:00 12/04/20 12:59 09/07/20 20:11 Fluticasone Propionate (Flonase) 1 spray TWICE A DAY NASAL 09/03/20 18:00 10/03/20 17:59 09/07/20 17:27 Hydralazine HCl (Apresoline) 50 mg Q8HR ORAL 09/03/20 16:00 12/02/20 15:59 09/07/20 20:12 Hydromorphone HCl (Dilaudid) 1 mg Q4H PRN IVP For Pain 09/04/20 07:45 09/11/20 07:44 09/07/20 10:06 Hyoscyamine Sulfate (Levsin) 0.125 mg Q4H PRN ORAL Abdominal cramps 09/03/20 22:45 10/03/20 22:44 09/06/20 21:27 Losartan Potassium (Cozaar) 100 mg DAILY ORAL 09/03/20 16:00 10/03/20 15:59 09/07/20 09:27 Metoprolol Tartrate (Lopressor) 12.5 mg BID ORAL 09/05/20 18:00 12/04/20 17:59 09/07/20 17:26 Mirtazapine (Remeron) 7.5 mg BEDTIME ORAL 09/07/20 00:15 12/06/20 00:14 09/07/20 20:11 Morphine Sulfate (Morphine Sulfate) 1 mg Q4H PRN IVP For Pain 09/03/20 22:15 09/10/20 22:14 09/06/20 11:27 Pantoprazole (Protonix) 40 mg EVERY 12 HOURS IVP 09/03/20 23:00 10/03/20 22:59 09/07/20 20:11 Polyethylene Glycol (Miralax) 17 gm HSPRN PRN ORAL Constipation 09/03/20 15:15 10/03/20 15:14 09/05/20 00:03 Sodium Chloride 1,000 ml @ 75 mls/hr [id number] IV 09/03/20 15:30 10/03/20 15:29 09/07/20 13:22 Neurological/Psychiatric: Reports: no symptoms Allergies: Coded Allergies: No Known Allergies (Unverified , 12/27/15) Objective Data Height (Feet): 5 Height (Inches): 1.00 Weight (Pounds): 152 General Appearance: WD/WN, no apparent distress, alert Additional Comments: alert and oriented times self, place, and situation. Pleasant, Italian speaking. Mood is anxious. Affect is blunted, congruent with mood. Thought process linear. Thought content, no suicidal or homicidal ideation. Cognition is intact. Insight and judgment is fair. Assessment/Plan Status: stable, progressing Assessment/Plan: Status: stable, progressing Assessment/Plan: ASSESSMENT: Pinole I Anxiety disorder. Pinole II Deferred. Pinole III Hypertension. Pinole IV Low. Pinole V 25. Saroj Kent MD Sep 08, 2020 00:11
[2020-09-08] MEDS: HYDROmorphone 1mg/ml Carpuject IVP PRN ×3 (04:57→20:36)
[2020-09-08 05:30] LABS: BASOPHILS % (AUTO) 1.3 % (0.0-2.0); HEMATOCRIT 34.8 % (37.0-47.0); LYMPHOCYTES % (AUTO) 25.2 % (20.0-45.0); MEAN CORPUSCULAR VOLUME 89 FL (80-99); MONOCYTES % (AUTO) 10.4 % (1.0-10.0); NEUTROPHILS % (AUTO) 54.1 % (45.0-75.0); PLATELET COUNT 184 K/UL (150-450); RED CELL DISTRIBUTION WIDTH 12.6 % (11.6-14.8); WHITE BLOOD COUNT 4.6 K/UL (4.8-10.8)
[2020-09-08] MEDS: HydrALAZINE 50mg tab ORAL SCH ×3 (05:38→22:37)
[2020-09-08 05:39] LABS: ALBUMIN/GLOBULIN RATIO 0.9 (1.0-2.7); CALCIUM 8.9 MG/DL (8.5-10.1); POTASSIUM 3.5 MMOL/L (3.5-5.1)
[2020-09-08] MEDS ORDERED: Esmolol 100mg/10ml Inj ONE (06:30)
[2020-09-08] MEDS ORDERED: Lidocaine 1% MPF 10mg/ml 5ml ONE (06:30)
--- NOTE | 2020-09-08 06:41 | Anethesia Preoperative Eval ---
Anesthesia Pre-op PMH/ROS General Date of Evaluation: Sep 08, 2020 Time of Evaluation: 06:37 Anesthesiologist: rhoda ASA Score: ASA 4 Mallampati Score Class I : Soft palate, uvula, fauces, pillars visible Class II: Soft palate, uvula, fauces visible Class III: Soft palate, base of uvula visible Class IV: Only hard plate visible Mallampati Classification: Class II Surgeon: bao Diagnosis: abdominal pain, gerd Surgical Procedure: egd/colonoscopy Anesthesia History: none Social History: alcohol use Family History: no anesthesia problems Allergies: Coded Allergies: No Known Allergies (Unverified , 12/27/15) Medications: see eMAR Patient NPO?: Yes Past Medical History Cardiovascular: Reports: HTN, other - chest pain Pulmonary: Reports: other - pleural effusion Gastrointestinal/Genitourinary: Reports: GERD, other - diverticulosis, pancreatitis, Neurologic/Psychiatric: Reports: CVA, depression/anxiety HEENT: Reports: other - decreased visual acuity Hematology/Immune: Reports: anemia Musculoskeletal/Integumentary: Reports: OA Other: obesity Anesthesia Pre-op Phys. Exam Physician Exam Last Vital Signs Date Time Temp Pulse Resp B/P (MAP) Pulse Ox O2 Delivery O2 Flow Rate FiO2 09/08/20 05:38 140/86 09/08/20 05:28 98.0 09/08/20 03:51 88 09/07/20 20:38 Room Air 09/07/20 20:08 18 93 09/06/20 13:25 21 Constitutional: other - large ecchymotic lesion on proximal right upper extremity Neurologic: CN 2-12 intact Cardiovascular: RRR Respiratory: CTA Gastrointestinal: S/NT/ND Airway Exam Mallampati Score: Class II MO: limited Neck: flexible TMD: 2fb ROM: limited Anesthesia Pre-op A/P Labs Microbiology Date/Time Source Procedure Growth Status 09/03/20 11:30 Nasopharynx SARS-CoV-2 RdRp Gene Assay - Final Complete Hematology Test 09/08/20 04:40 White Blood Count 4.6 K/UL (4.8-10.8) L Red Blood Count 3.90 M/UL (4.20-5.40) L Hemoglobin 12.0 G/DL (12.0-16.0) Hematocrit 34.8 % (37.0-47.0) L Mean Corpuscular Volume 89 FL (80-99) Mean Corpuscular Hemoglobin 30.6 PG (27.0-31.0) Mean Corpuscular Hemoglobin Concent 34.4 G/DL (32.0-36.0) Red Cell Distribution Width 12.6 % (11.6-14.8) Platelet Count 184 K/UL (150-450) Mean Platelet Volume 5.7 FL (6.5-10.1) L Neutrophils (%) (Auto) 54.1 % (45.0-75.0) Lymphocytes (%) (Auto) 25.2 % (20.0-45.0) Monocytes (%) (Auto) 10.4 % (1.0-10.0) H Eosinophils (%) (Auto) 9.0 % (0.0-3.0) H Basophils (%) (Auto) 1.3 % (0.0-2.0) Chemistry Test 09/08/20 04:40 Sodium Level 140 MMOL/L (136-145) Potassium Level 3.5 MMOL/L (3.5-5.1) Chloride Level 104 MMOL/L (98-107) Carbon Dioxide Level 24 MMOL/L (21-32) Anion Gap 12 mmol/L (5-15) Blood Urea Nitrogen 6 mg/dL (7-18) L Creatinine 1.0 MG/DL (0.55-1.30) Estimat Glomerular Filtration Rate 52.8 mL/min (>60) Glucose Level 89 MG/DL (74-106) Calcium Level 8.9 MG/DL (8.5-10.1) Total Bilirubin 1.0 MG/DL (0.2-1.0) Aspartate Amino Transf (AST/SGOT) 42 U/L (15-37) H Alanine Aminotransferase (ALT/SGPT) 19 U/L (12-78) Alkaline Phosphatase 71 U/L (46-116) Total Protein 6.3 G/DL (6.4-8.2) L Albumin 3.0 G/DL (3.4-5.0) L Globulin 3.3 g/dL Albumin/Globulin Ratio 0.9 (1.0-2.7) L Studies Pre-op Studies: EKG - atrial fibrillation, nstwa Risk Assessment & Plan Assessment: [email or web address] Plan: mac Status Change Before Surgery: No Pre-Antibiotics Drug: Janet Anna MD Sep 08, 2020 06:41
[2020-09-08] MEDS ORDERED: DiphenhydrAMINE 50mg/ml Inj IVP PRN (06:45)
[2020-09-08] MEDS ORDERED: Atropine Inj 1mg/10ml Syr IVP PRN (06:45)
[2020-09-08] MEDS ORDERED: fentaNYL 100 mcg/2 mL IV PRN (06:45)
[2020-09-08] MEDS ORDERED: Midazolam 2mg/2ml Inj IVP PRN (06:45)
[2020-09-08] MEDS ORDERED: Labetalol 5mg/ml 20ml vial IV PRN (06:45)
--- NOTE | 2020-09-08 06:51 | NUR ---
NURSE NOTES: Off the floor for procedure.
--- NOTE | 2020-09-08 06:54 | NUR ---
HAND-OFF: Report given to Katya Pompa RN.
--- NOTE | 2020-09-08 07:07 | General Progress Note ---
Subjective Allergies: Coded Allergies: No Known Allergies (Unverified , 12/27/15) Subjective above noted seen in GI lab Objective Last 24 Hour Vital Signs Date Time Temp Pulse Resp B/P (MAP) Pulse Ox O2 Delivery O2 Flow Rate FiO2 09/08/20 05:38 140/86 09/08/20 05:28 98.0 09/08/20 03:51 98.0 88 140/86 (104) 09/07/20 20:38 Room Air 09/07/20 20:12 138/87 09/07/20 20:08 97.7 95 18 138/87 (104) 93 09/07/20 17:26 99 158/88 09/07/20 16:00 97.6 99 20 158/88 (111) 93 09/07/20 13:22 138/74 09/07/20 12:00 98.1 74 20 138/74 (95) 94 09/07/20 10:36 97.5 09/07/20 09:27 133/70 09/07/20 09:26 76 133/70 09/07/20 09:26 76 133/70 09/07/20 09:00 Room Air 09/07/20 08:00 97.5 76 18 133/70 (91) 94 Intake and Output 09/07/20 09/08/20 19:00 07:00 Intake Total 575 ml 2860 ml Balance 575 ml 2860 ml Intake Oral 500 ml 2000 ml IV Total 75 ml 860 ml # Voids 5 # Bowel Movements 5 8 Laboratory Tests 09/08/20 04:40: White Blood Count 4.6L, Red Blood Count 3.90L, Hemoglobin 12.0, Hematocrit 34.8L , Mean Corpuscular Volume 89, Mean Corpuscular Hemoglobin 30.6, Mean Corpuscular Hemoglobin Concent 34.4, Red Cell Distribution Width 12.6, Platelet Count 184, Mean Platelet Volume 5.7L, Neutrophils (%) (Auto) 54.1, Lymphocytes (%) (Auto) 25.2, Monocytes (%) (Auto) 10.4H, Eosinophils (%) (Auto) 9.0H, Basophils (%) (Auto) 1.3, Sodium Level 140, Potassium Level 3.5, Chloride Level 104, Carbon Di oxide Level 24, Anion Gap 12, Blood Urea Nitrogen 6L, Creatinine 1.0, Estimat Glomerular Filtration Rate 52.8, Glucose Level 89, Calcium Level 8.9, Total Bilirubin 1.0, Aspartate Amino Transf (AST/SGOT) 42H, Alanine Aminotransferase (ALT/SGPT) 19, Alkaline Phosphatase 71, Total Protein 6.3L, Albumin 3.0L, Globulin 3.3, Albumin/Globulin Ratio 0.9L Height (Feet): 5 Height (Inches): 5.00 Weight (Pounds): 160 Objective WDWN woman NCAT supple CY+TA RR Abd soft ND NT no edema Assessment/Plan Status: stable, progressing Assessment/Plan: Assessment - 2 mo of intermittent post parandial epigastric pain - cholelithiasis / GB sludge - h/o gastritis - mild anemia --> now OB (+) - HTN - hypercholesterolemia Recommendations - monitor labs - Protonix - EGD/Colon in am - GI prep tonight POST PROCEDURE ADDENDUM EGD: lower esophageal diverticulum, small hiatal hernia, cardia and antrum gastritis - biopsies colon: Diminutive colon polyp - biopsy Teodoro Huertas MD Sep 08, 2020 07:07
--- NOTE | 2020-09-08 07:08 | Pre-Procedure Note/Attestation ---
Pre-Procedure Note/Attestation Complete Prior to Procedure Planned Procedure: not applicable Procedure Narrative: esophagogastroduodenoscopy colon Indications for Procedure Pre-Operative Diagnosis: Heme (+) stools Attestation I attest that I discussed the nature of the procedure; its benefits; risks and complications; and alternatives (and the risks and benefits of such alternatives), prior to the procedure, with the patient (or the patient's legal assistance representative). I attest that, if there was a reasonable possibility of needing a blood transfusion, the patient (or the patient's legal assistance representative) was given the [facility] standardized written summary, pursuant to the Vivek Tyler Blood Safety Act ([place] Health and Safety Code # 1645, as amended). I attest that I re-evaluated the patient just prior to the surgery and that there has been no change in the patient's H&P, except as documented below: Teodoro Huertas MD Sep 08, 2020 07:08
--- NOTE | 2020-09-08 07:20 | NUR ---
NURSE NOTES: Received report from HUA Beavers. Pt off the unit for procedure.
--- NOTE | 2020-09-08 07:33 | General Progress Note ---
Subjective ROS Limited/Unobtainable: No Constitutional: Reports: malaise, weakness HEENT: Reports: no symptoms Cardiovascular: Reports: no symptoms Respiratory: Reports: no symptoms Gastrointestinal/Abdominal: Reports: abdominal pain Genitourinary: Reports: no symptoms Neurologic/Psychiatric: Reports: no symptoms Endocrine: Reports: no symptoms Hematologic/Lymphatic: Reports: no symptoms Allergies: Coded Allergies: No Known Allergies (Unverified , 12/27/15) All Systems: reviewed and negative except above Subjective npo for endoscopy. still with abd pain. requiring iv dilaudid for pain control. no fever or chills. no sob. Objective Last 24 Hour Vital Signs Date Time Temp Pulse Resp B/P (MAP) Pulse Ox O2 Delivery O2 Flow Rate FiO2 09/08/20 05:38 140/86 09/08/20 05:28 98.0 09/08/20 03:51 98.0 88 140/86 (104) 09/07/20 20:38 Room Air 09/07/20 20:12 138/87 09/07/20 20:08 97.7 95 18 138/87 (104) 93 09/07/20 17:26 99 158/88 09/07/20 16:00 97.6 99 20 158/88 (111) 93 09/07/20 13:22 138/74 09/07/20 12:00 98.1 74 20 138/74 (95) 94 09/07/20 10:36 97.5 09/07/20 09:27 133/70 09/07/20 09:26 76 133/70 09/07/20 09:26 76 133/70 09/07/20 09:00 Room Air 09/07/20 08:00 97.5 76 18 133/70 (91) 94 Intake and Output 09/07/20 09/08/20 19:00 07:00 Intake Total 575 ml 2860 ml Balance 575 ml 2860 ml Intake Oral 500 ml 2000 ml IV Total 75 ml 860 ml # Voids 5 # Bowel Movements 5 8 Laboratory Tests 09/08/20 04:40: White Blood Count 4.6L, Red Blood Count 3.90L, Hemoglobin 12.0, Hematocrit 34.8L , Mean Corpuscular Volume 89, Mean Corpuscular Hemoglobin 30.6, Mean Corpuscular Hemoglobin Concent 34.4, Red Cell Distribution Width 12.6, Platelet Count 184, Mean Platelet Volume 5.7L, Neutrophils (%) (Auto) 54.1, Lymphocytes (%) (Auto) 25.2, Monocytes (%) (Auto) 10.4H, Eosinophils (%) (Auto) 9.0H, Basophils (%) (Auto) 1.3, Sodium Level 140, Potassium Level 3.5, Chloride Level 104, Carbon Dioxide Level 24, Anion Gap 12, Blood Urea Nitrogen 6L, Creatinine 1.0, Estimat Glomerular Filtration Rate 52.8, Glucose Level 89, Calcium Level 8.9, Total Bilirubin 1.0, Aspartate Amino Transf (AST/SGOT) 42H, Alanine Aminotransferase (ALT/SGPT) 19, Alkaline Phosphatase 71, Total Protein 6.3L, Albumin 3.0L, Globulin 3.3, Albumin/Globulin Ratio 0.9L Height (Feet): 5 Height (Inches): 5.00 Weight (Pounds): 157 Objective General Appearance: WD/WN, no apparent distress, alert EENT: PERRL/EOMI Neck: non-tender, normal alignment, supple Cardiovascular: normal rate, regular rhythm Respiratory/Chest: chest wall non-tender, lungs clear, normal breath sounds, no respiratory distress Abdomen: normal bowel sounds, non tender, soft, no organomegaly, no mass Edema: no edema noted Arm (L), no edema noted Arm (R) Edema: trace edema 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, no motor/sensory deficits, alert, oriented x 3, responsive Assessment/Plan Problem List: (1) Chest pain ICD Codes: R07.9 - Chest pain, unspecified SNOMED: 60390242 (2) Abdominal pain ICD Codes: R10.9 - Unspecified abdominal pain SNOMED: 95667996 Qualifiers: Qualified Codes: R10.13 - Epigastric pain (3) Hyponatremia ICD Codes: E87.1 - Hypo-osmolality and hyponatremia SNOMED: 64922070 (4) CHF (congestive heart failure) ICD Codes: I50.9 - Heart failure, unspecified SNOMED: 29959648 (5) Elevated alkaline phosphatase level ICD Codes: R74.8 - Abnormal levels of other serum enzymes SNOMED: 817534208 Status: stable, progressing Assessment/Plan: HIDA scan negative surgery eval appreciated pain rx- in pain rx eliquis on hold cards follow up re: afib ct lumbar spine- reviewed. deg disc dz stress ulcer prophylaxis pain rx increased endoscopy today POC to be determined after above Eliud Demarco MD Sep 08, 2020 07:33
--- NOTE | 2020-09-08 07:59 | Immediate Post-Op Evaluation ---
Immediate Post-Op Evalulation Immediate Post-Op Evalulation Procedure: egd/colonoscopy w/bx Date of Evaluation: Sep 08, 2020 Time of Evaluation: 07:53 IV Fluids: 300ml 0.9ns Blood Products: none Estimated Blood Loss: negligible Blood Pressure Systolic: 113 Blood Pressure Diastolic: 59 Pulse Rate: 75 Respiratory Rate: 18 O2 Sat by Pulse Oximetry: 100 Temperature (Fahrenheit): 97.2 Pain Score (1-10): 0 Nausea: No Vomiting: No Complications none Patient Status: awake, reacts, patent Hydration Status: adequate Drug: Janet Anna MD Sep 08, 2020 07:59
--- NOTE | 2020-09-08 08:01 | 48 Hour Post Anesthesia Eval ---
Post Anesthesia Evaluation Procedure: egd/colonoscopy w/bx Date of Evaluation: Sep 08, 2020 Time of Evaluation: 07:55 Blood Pressure Systolic: 117 0: 52 Pulse Rate: 65 Respiratory Rate: 18 Temperature (Fahrenheit): 97.2 O2 Sat by Pulse Oximetry: 100 Airway: patent Nausea: No Vomiting: No Pain Intensity: 0 Hydration Status: adequate Cardiopulmonary Status: stable Mental Status/LOC: patient returned to baseline Post-Anesthesia Complications: none Follow-up care needed: N/A Janet Olmstead MD Sep 08, 2020 08:01
[2020-09-08] MEDS: Pantoprazole Inj IVP SCH ×2 (09:43→21:05)
[2020-09-08] MEDS: Metoprolol Tartrate 12.5mg TAB ORAL SCH ×2 (09:45→17:24)
[2020-09-08] MEDS: Flonase Nasal Inhaler 16gm NASAL SCH ×2 (09:46→17:24)
[2020-09-08] MEDS: Diclofenac 1% Gel 100gm TOPIC SCH ×4 (09:46→21:04)
[2020-09-08] MEDS: Losartan 50mg tab ORAL SCH (09:47)
--- NOTE | 2020-09-08 13:41 | NUR ---
CASE MANAGEMENT:REVIEW 09/08/20 SI: CHEST/EPIGASTRIC PAIN. CHOLELITHIASIS/GB SLUDGE CHF. 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
--- NOTE | 2020-09-08 17:06 | Surgery Progress Note ---
Surgery Progress Note Subjective Additional Comments scope today. pending results no n/v still with complaints of generalized pain Objective Last 24 Hour Vital Signs Date Time Temp Pulse Resp B/P (MAP) Pulse Ox O2 Delivery O2 Flow Rate FiO2 09/08/20 16:00 98.6 80 19 139/64 (89) 98 09/08/20 15:22 97.3 09/08/20 14:00 101/79 09/08/20 12:00 98.2 91 16 101/79 (86) 98 09/08/20 09:47 122/58 09/08/20 09:46 70 122/58 09/08/20 09:45 70 122/58 09/08/20 09:00 Room Air 09/08/20 08:10 97.3 74 23 120/58 97 Room Air 09/08/20 08:01 65 18 100 09/08/20 08:00 68 20 122/56 97 Room Air 09/08/20 07:59 75 18 100 09/08/20 07:50 67 12 119/57 100 Nasal Cannula 3 09/08/20 07:45 65 13 117/52 100 Nasal Cannula 3 09/08/20 07:41 97.2 66 21 118/59 100 Nasal Cannula 3 09/08/20 05:38 140/86 09/08/20 05:28 98.0 09/08/20 03:51 98.0 88 140/86 (104) 09/07/20 20:38 Room Air 09/07/20 20:12 138/87 09/07/20 20:08 97.7 95 18 138/87 (104) 93 09/07/20 17:26 99 158/88 I&O Intake and Output 09/07/20 09/08/20 19:00 07:00 Intake Total 575 ml 2860 ml Balance 575 ml 2860 ml Intake Oral 500 ml 2000 ml IV Total 75 ml 860 ml # Voids 5 # Bowel Movements 5 8 Cardiovascular: RSR Respiratory: clear Abdomen: soft, non-tender, present bowel sounds Extremities: no edema, no tenderness, no cyanosis Laboratory Tests Test 09/08/20 04:40 White Blood Count 4.6 K/UL (4.8-10.8) L Red Blood Count 3.90 M/UL (4.20-5.40) L Hemoglobin 12.0 G/DL (12.0-16.0) Hematocrit 34.8 % (37.0-47.0) L Mean Corpuscular Volume 89 FL (80-99) Mean Corpuscular Hemoglobin 30.6 PG (27.0-31.0) Mean Corpuscular Hemoglobin Concent 34.4 G/DL (32.0-36.0) Red Cell Distribution Width 12.6 % (11.6-14.8) Platelet Count 184 K/UL (150-450) Mean Platelet Volume 5.7 FL (6.5-10.1) L Neutrophils (%) (Auto) 54.1 % (45.0-75.0) Lymphocytes (%) (Auto) 25.2 % (20.0-45.0) Monocytes (%) (Auto) 10.4 % (1.0-10.0) H Eosinophils (%) (Auto) 9.0 % (0.0-3.0) H Basophils (%) (Auto) 1.3 % (0.0-2.0) Sodium Level 140 MMOL/L (136-145) Potassium Level 3.5 MMOL/L (3.5-5.1) Chloride Level 104 MMOL/L (98-107) Carbon Dioxide Level 24 MMOL/L (21-32) Anion Gap 12 mmol/L (5-15) Blood Urea Nitrogen 6 mg/dL (7-18) L Creatinine 1.0 MG/DL (0.55-1.30) Estimat Glomerular Filtration Rate 52.8 mL/min (>60) Glucose Level 89 MG/DL (74-106) Calcium Level 8.9 MG/DL (8.5-10.1) Total Bilirubin 1.0 MG/DL (0.2-1.0) Aspartate Amino Transf (AST/SGOT) 42 U/L (15-37) H Alanine Aminotransferase (ALT/SGPT) 19 U/L (12-78) Alkaline Phosphatase 71 U/L (46-116) Total Protein 6.3 G/DL (6.4-8.2) L Albumin 3.0 G/DL (3.4-5.0) L Globulin 3.3 g/dL Albumin/Globulin Ratio 0.9 (1.0-2.7) L Plan Problems: (1) Hyponatremia (2) Pancreatitis Assessment & Plan: Liver measures 15.5 cm in craniocaudal dimension. Echotexture of the liver is slightly heterogeneous, limiting evaluation for focal mass. There is no intrahepatic biliary ductal dilatation. The common bile duct measures 0.3 cm, within normal limits. The gallbladder is markedly distended with internal sludge near the gallbladder neck. No definite stone is appreciated, though the gallbladder neck is not well evaluated. There is no definite wall thickening. There is no sonographic Del Cid's sign. Correlate for recent pain medication administration, which would make sonographic Del Cid sign nondiagnostic. Pancreas is not well evaluated due to shadowing artifact from bowel gas. Right kidney measures 8.5 x 3.9 x 4.2 cm. The right renal parenchyma is not well evaluated due to shadowing artifact from ribs. There is no right renal hydronephrosis. There is cortical scarring of the right kidney at the mid to upper pole region. Left kidney measures 8.2 x 4.5 x 4.4 cm. The left renal parenchyma, is not well evaluated due to shadowing artifact from ribs. There is no left renal hydronephrosis. Probable areas of cortical scarring of the left kidney is noted. Spleen measures 8.2 cm, within normal limits. There is no significant free fluid. Aorta and IVC are not well evaluated due to limitations of the study described above. Aorta measures approximately 2.4 cm in the upper abdomen. IMPRESSION: Evaluation is limited due to body habitus and rib shadowing artifact. Gallbladder is markedly distended with internal sludge near the gallbladder neck. No definite stone is appreciated, though the gallbladder neck is not well evaluated. There is no definite gallbladder wall thickening. There is no sonographic Del Cid's sign. Correlate for recent pain medication administration, which would make sonographic Del Cid sign nondiagnostic. Findings are equivocal for acute cholecystitis. Correlation with HIDA scan is recommended. (3) Abdominal pain Assessment & Plan: 85F abd pain for months. afebrile, HD Stable on admission lipase elevated now normal cramping pain US with sludge and distended GB. no josh elier fluid or inflammation of wall murphys negative HIDA pending - negative IV abx labs and imaging reviewed. no organic finding to correlate with symptoms. no acute surgical intervention planned appreciate GI input okay for trial diet will follow with recs thank you (4) CHF (congestive heart failure) (5) Chest pain (6) Elevated alkaline phosphatase level (7) Anemia (8) Diarrhea (9) Diverticulosis (10) Pleural effusion Wes Juarez Sep 08, 2020 17:06
[2020-09-08] MEDS: Hyoscyamine 0.125mg tab ORAL PRN (17:24)
--- NOTE | 2020-09-08 19:05 | Cardiology Progress Note ---
Subjective DATE OF SERVICE: Sep 08, 2020 Still with abdominal pain. S/p panendoscopy today; preliminary findings notable only for polyp. No CP Troponins negative Lipase level now normal US reveals cholelithiasis and sludge; HIDA scan negative. Repeat EKG 09/05/20 reveals atrial fibrillation with adequate rate control. Anticoagulation started and stopped within 24hrs due to bruising and heme positive stool. Objective Last 24 Hour Vital Signs Date Time Temp Pulse Resp B/P (MAP) Pulse Ox O2 Delivery O2 Flow Rate FiO2 09/08/20 17:24 80 139/64 09/08/20 16:00 98.6 80 19 139/64 (89) 98 09/08/20 15:22 97.3 09/08/20 14:00 101/79 09/08/20 12:00 98.2 91 16 101/79 (86) 98 09/08/20 09:47 122/58 09/08/20 09:46 70 122/58 09/08/20 09:45 70 122/58 09/08/20 09:00 Room Air 09/08/20 08:10 97.3 74 23 120/58 97 Room Air 09/08/20 08:01 65 18 100 09/08/20 08:00 68 20 122/56 97 Room Air 09/08/20 07:59 75 18 100 09/08/20 07:50 67 12 119/57 100 Nasal Cannula 3 09/08/20 07:45 65 13 117/52 100 Nasal Cannula 3 09/08/20 07:41 97.2 66 21 118/59 100 Nasal Cannula 3 09/08/20 05:38 140/86 09/08/20 05:28 98.0 09/08/20 03:51 98.0 88 140/86 (104) 09/07/20 20:38 Room Air 09/07/20 20:12 138/87 09/07/20 20:08 97.7 95 18 138/87 (104) 93 ROS: unchanged from my evaluation 09/03/20 LUNGS: lungs clear bilaterally CARDIAC: normal rate, normal S1 and S2, irregularly irregular ABDOMEN: normal bowel sounds, soft, tender - mildly in midepigastric area, slightly distended, other - right flank bruising EXTREMITIES: No edema, other - right shoulder bruising posteriorly Laboratory Tests Test 09/08/20 04:40 White Blood Count 4.6 K/UL (4.8-10.8) L Red Blood Count 3.90 M/UL (4.20-5.40) L Hemoglobin 12.0 G/DL (12.0-16.0) Hematocrit 34.8 % (37.0-47.0) L Mean Corpuscular Volume 89 FL (80-99) Mean Corpuscular Hemoglobin 30.6 PG (27.0-31.0) Mean Corpuscular Hemoglobin Concent 34.4 G/DL (32.0-36.0) Red Cell Distribution Width 12.6 % (11.6-14.8) Platelet Count 184 K/UL (150-450) Mean Platelet Volume 5.7 FL (6.5-10.1) L Neutrophils (%) (Auto) 54.1 % (45.0-75.0) Lymphocytes (%) (Auto) 25.2 % (20.0-45.0) Monocytes (%) (Auto) 10.4 % (1.0-10.0) H Eosinophils (%) (Auto) 9.0 % (0.0-3.0) H Basophils (%) (Auto) 1.3 % (0.0-2.0) Sodium Level 140 MMOL/L (136-145) Potassium Level 3.5 MMOL/L (3.5-5.1) Chloride Level 104 MMOL/L (98-107) Carbon Dioxide Level 24 MMOL/L (21-32) Anion Gap 12 mmol/L (5-15) Blood Urea Nitrogen 6 mg/dL (7-18) L Creatinine 1.0 MG/DL (0.55-1.30) Estimat Glomerular Filtration Rate 52.8 mL/min (>60) Glucose Level 89 MG/DL (74-106) Calcium Level 8.9 MG/DL (8.5-10.1) Total Bilirubin 1.0 MG/DL (0.2-1.0) Aspartate Amino Transf (AST/SGOT) 42 U/L (15-37) H Alanine Aminotransferase (ALT/SGPT) 19 U/L (12-78) Alkaline Phosphatase 71 U/L (46-116) Total Protein 6.3 G/DL (6.4-8.2) L Albumin 3.0 G/DL (3.4-5.0) L Globulin 3.3 g/dL Albumin/Globulin Ratio 0.9 (1.0-2.7) L Assessment/Plan Assessment/Plan Abdominal Pain Elevated lipase on admit with distant hx of pancreatitis Non-cardiac chest pain; negative ischemia work up in past. Low range lipid parameters. Paroxysmal atrial fibrillation Bruising and heme positive stool while on anticoagulation. Await final GI recommendations. Continue beta dorys for rate control; additional IV dosing for rapid rates during GI procedure. Holding anticoagulation due to increased risk to benefit ratio at present. Kyle Lopez MD Sep 08, 2020 19:05
--- NOTE | 2020-09-08 19:40 | NUR ---
Received report from am nurse and rounds made. Received pt lying in bed, AOX4, Greek speaking only. Able to make needs known without problems. IV fluid infusing per MD order. Bed in lowest position and locked. Side rails up x 2. Call light within reach. Will continue to monitor.
--- NOTE | 2020-09-08 19:43 | NUR ---
NURSE HAND-OFF: Important Events on Shift:[EGD] Patient Status: [stable] Diet: [cardiac] Pending Orders: [] Pending Results/Labs:[] Pending MD notification:[] Latest Vital Signs: Temperature 98.6 , Pulse 80 , B/P 139 /64 , Respiratory Rate 19 , O2 SAT 98 , Room Air, O2 Flow Rate 3 . Vital Sign Comment: [stable] Latest Nur Fall Score: 45 Fall Risk: High Risk Safety Measures: Call light Within Reach, Bed Alarm Zone 1, Side Rails Side Rails x2, Bed position Low and Locked. Fall Precautions: Yellow Socks Yellow Gown Door Sign Patient Fall Education Report given to [JonathanRN].
[2020-09-08] MEDS: NS w/KCl 20mEq 1000ml 1,000 ML IV SCH (21:01)
--- NOTE | 2020-09-08 22:38 | Endoscopy Procedure Note ---
Endoscopy Procedure Note General Indication for Procedure: anemia Procedures Performed: EGD, colonoscopy Operative Findings/Diagnosis: HH, gastritis, dim colon polyp Specimen: yes Pt Tolerated Procedure Well: Yes Estimated Blood Loss: none Anesthesia Anesthesiologist: Madi hansen Anesthesia: MAC Medications Medication Given: see anesthesia record Inserted Devices Implant(s) used?: No GI Core Measures 50 yrs or older w/o bx or poly: Not Applicable 10yrs. F/U recommended: Not Applicable Teodoro Huertas MD Sep 08, 2020 22:38
--- NOTE | 2020-09-08 22:39 | Brief Operative Note ---
Immediate Post Operative Note Operative Note Chief Complaint: anemai, ob (+) Pre-op Diagnosis: Heme (+) stools Procedure: EGD/Bx, Colon / BX Surgeon: bao Anesthesiologist: Madi hansen Anesthesia: MAC Specimen: yes Complications: none Condition: stable Fluids: recorded Estimated Blood Loss: none Drains: none Implant(s) used?: No Teodoro Huertas MD Sep 08, 2020 22:39
--- NOTE | 2020-09-08 22:45 | NUR ---
Patient wheezing SP02 90%. Albuterol HHN discontinued by pharmacy. Placed pt on 2 liters oxygen SPO2 92%. Contacted Dr. Lopez to get renewal order for Albuterol. Awaiting for call back. Will continue to monitor.
--- NOTE | 2020-09-08 22:53 | NUR ---
Dr Lopez called back order obtained to renew [facility] Atrovent.
--- NOTE | 2020-09-08 22:56 | NUR ---
Called and spoke with RT Alhaji. to give pt breathing treatment. Per Alhaji he is in [place] right now and he is busy he will come as soon as he can. Will continue to monitor pt.
[2020-09-08] MEDS ORDERED: Albuterol/Ipratropium 3ml neb HHN PRN (23:00)
--- NOTE | 2020-09-08 23:06 | Psych Consult Progress Note ---
Psychiatry Progress Note Psychiatry Progress Note Subjective not sleeping Medications Current Medications Medications (Trade) Dose Ordered Sig/Nisha Route PRN Reason Start Time Stop Time Status Last Admin Dose Admin Acetaminophen (Tylenol) 500 mg TIDPRN PRN ORAL pain 1-3, T>100.5F, headache 09/03/20 15:15 10/03/20 15:14 09/06/20 05:46 Albuterol/ Ipratropium (Albuterol/ Ipratropium) 3 ml Q4H PRN HHN Shortness of Breath 09/08/20 23:00 09/13/20 22:59 Amlodipine Besylate (Norvasc) 5 mg DAILY ORAL 09/03/20 16:00 10/03/20 15:59 09/08/20 09:46 Diclofenac Sodium (Voltaren gel) 1 applic QID TOPIC 09/05/20 13:00 12/04/20 12:59 09/08/20 21:04 Fluticasone Propionate (Flonase) 1 spray TWICE A DAY NASAL 09/03/20 18:00 10/03/20 17:59 09/08/20 17:24 Hydralazine HCl (Apresoline) 50 mg Q8HR ORAL 09/03/20 16:00 12/02/20 15:59 09/08/20 22:37 Hydromorphone HCl (Dilaudid) 1 mg Q4H PRN IVP For Pain 09/04/20 07:45 09/11/20 07:44 09/08/20 20:36 Hyoscyamine Sulfate (Levsin) 0.125 mg Q4H PRN ORAL Abdominal cramps 09/03/20 22:45 10/03/20 22:44 09/08/20 17:24 Losartan Potassium (Cozaar) 100 mg DAILY ORAL 09/03/20 16:00 10/03/20 15:59 09/08/20 09:47 Metoprolol Tartrate (Lopressor) 12.5 mg BID ORAL 09/05/20 18:00 12/04/20 17:59 09/08/20 17:24 Mirtazapine (Remeron) 15 mg BEDTIME ORAL 09/08/20 21:00 12/07/20 20:59 09/08/20 20:45 Morphine Sulfate (Morphine Sulfate) 1 mg Q4H PRN IVP For Pain 09/03/20 22:15 09/10/20 22:14 09/06/20 11:27 Pantoprazole (Protonix) 40 mg EVERY 12 HOURS IVP 09/03/20 23:00 10/03/20 22:59 09/08/20 21:05 Polyethylene Glycol (Miralax) 17 gm HSPRN PRN ORAL Constipation 09/03/20 15:15 10/03/20 15:14 09/05/20 00:03 Potassium Chloride/Sodium Chloride 1,000 ml @ 50 mls/hr Q20H IV 09/08/20 20:00 10/08/20 19:59 09/08/20 21:01 Neurological/Psychiatric: Reports: anxiety, depressed Allergies: Coded Allergies: No Known Allergies (Unverified , 12/27/15) Objective Data Height (Feet): 5 Height (Inches): 5.00 Weight (Pounds): 157 General Appearance: WD/WN, no apparent distress, alert Additional Comments: alert and oriented times self, place, and situation. Pleasant, Icelandic speaking. Mood is anxious. Affect is blunted, congruent with mood. Thought process linear. Thought content, no suicidal or homicidal ideation. Cognition is intact. Insight and judgment is fair. Assessment/Plan Lafferty I: Assessment/Plan Status: stable, progressing Assessment/Plan: ASSESSMENT: Lafferty I Anxiety disorder. Lafferty II Deferred. Lafferty III Hypertension. Lafferty IV Low. Lafferty V 25. Status: stable, progressing Assessment/Plan: PLAN: 1. The patient is currently started on Remeron 7.5 at bedtime. 2. Provide the patient with reality orientation and supportive therapy. Saroj Kent MD Sep 08, 2020 23:06
--- NOTE | 2020-09-08 23:45 | Operative Note - Dictated ---
DATE OF OPERATION: 09/08/2020 GASTROENTEROLOGY PROCEDURE REPORT PROCEDURE: Upper gastrointestinal endoscopy with biopsy as well as colonoscopy with biopsy. SURGEON: Teodoro Huertas MD ANESTHESIA: Please see the separate anesthesiologist notes for details. PRE-ENDOSCOPIC DIAGNOSES: Heme-positive stools and anemia. POST-ENDOSCOPIC DIAGNOSES: 1. Lower esophageal diverticulum. 2. Small hiatal hernia measuring 2 to 3 cm. 3. Erosive gastritis in the cardia in the region of hiatal hernia as well as antrum of the stomach, status post biopsy. 4. Status post biopsy of the lower esophagus. 5. Diminutive polyp in the colon removed with a biopsy forceps. DESCRIPTION OF PROCEDURE: The procedure, its risks, indications, alternatives, and possible complications were explained and informed consent was obtained. The patient was then sedated in the left lateral decubitus position and a diagnostic upper endoscope was introduced through the oropharynx and advanced to the duodenum. It was then gradually withdrawn. Rectal exam was done and then the colonoscope was introduced in the rectum and advanced to 5 to 10 cm into the terminal ileum. The colonoscope was then gradually withdrawn. The mucosa examined carefully. Examination of the upper and lower gastrointestinal tracts revealed the findings listed above. The biopsies were sent to pathology for review. The patient was sent to recovery in good condition. COMPLICATIONS: None. ASSESSMENT: This patient's epigastric pain and substernal chest pain may be related to her hiatal hernia and esophageal diverticulum and the hernia sac gastritis seen in this examination. Biopsies will be evaluated and the patient will be treated for Helicobacter pylori if positive. RECOMMENDATIONS: 1. Resume oral diet. 2. Check and follow up pathology results. 3. Reflux precautions. Teodoro Huertas M.D. DR: JEROD JOB#: [id number] CC:
[2020-09-09] VITALS: BP 137/68
[2020-09-09] MEDS: HYDROmorphone 1mg/ml Carpuject IVP PRN (00:57)
[2020-09-09] MEDS: HydrALAZINE 50mg tab ORAL SCH ×3 (05:28→21:53)
[2020-09-09 05:30] VITALS: BP 142/70
--- NOTE | 2020-09-09 07:30 | NUR ---
NURSE NOTES: Patient is in bed asleep. Stable. Breathing is even and unlabored, on 2L oxygen via NC. No visible signs of distress noted. Patient is in bed in locked and lowest position with call light within reach. All safety measures provided. Will continue to monitor.
--- NOTE | 2020-09-09 07:32 | NUR ---
HAND-OFF: Report given to HUA Hernandez
[2020-09-09 08:00] VITALS: BP 148/101
--- NOTE | 2020-09-09 08:00 | NUR ---
NURSE NOTES: Patient is awake, assisted patient to bedside commode then back to bed without incident. SOB noted upon exertion. Patient instructed to do deep breathing instructions. Patient on 2L oxygen via NC, O2 sat 93%. WIll continue to monitor.
[2020-09-09] MEDS: Flonase Nasal Inhaler 16gm NASAL SCH ×2 (08:37→17:48)
[2020-09-09] MEDS: Metoprolol Tartrate 12.5mg TAB ORAL SCH ×2 (08:37→17:48)
[2020-09-09] MEDS: Pantoprazole Inj IVP SCH ×2 (08:37→21:50)
[2020-09-09] MEDS: Diclofenac 1% Gel 100gm TOPIC SCH ×4 (08:37→21:50)
[2020-09-09] MEDS: Losartan 50mg tab ORAL SCH (08:38)
--- NOTE | 2020-09-09 10:57 | NUR ---
RD ASSESSMENT & RECOMMENDATIONS SEE CARE ACTIVITY FOR COMPLETE ASSESSMENT DAILY ESTIMATED NEEDS: Needs based on Cardiac 53.6kg abw 25-30 kcals/kg 6461-3475 total kcals 1-1.2 g protein/kg 54-64 g total protein 25-30ml/kcal mL/kg 1575-9790 total fluid mLs NUTRITION DIAGNOSIS: Decreased sodium needs r/t cardiac history as evidenced by h/o HTN, CVA, elev BP now (148/101). CURRENT DIET: Cardiac PO DIET RECOMMENDATIONS: LOW NA diet / texture as tolerated ADDITIONAL RECOMMENDATIONS: 1) Obtain a standing weight as able 2) Monitor po intake and tolerance/ s/p EGD, NPO status 3) Add Ensure Enlive qdaily w/ variable intake
--- NOTE | 2020-09-09 11:50 | Surgery Progress Note ---
Surgery Progress Note Subjective Additional Comments egd with gastritis c/o of burning pain in epigastric region no n/v tolerating diet labs okay afebrile, HD stable exam benign Objective Last 24 Hour Vital Signs Date Time Temp Pulse Resp B/P (MAP) Pulse Ox O2 Delivery O2 Flow Rate FiO2 09/09/20 09:00 Nasal Cannula 2.0 09/09/20 08:38 148/101 09/09/20 08:38 111 148/101 09/09/20 08:37 111 148/101 09/09/20 08:00 97.7 111 24 148/101 (117) 93 09/09/20 05:30 97.7 81 18 142/70 (94) 96 09/09/20 05:28 142/70 09/09/20 00:00 97.7 86 20 137/68 (91) 94 09/08/20 23:22 96 Nasal Cannula 2.0 28 09/08/20 23:12 72 17 98 Nasal Cannula 2.0 28 69 17 96 09/08/20 22:37 140/83 09/08/20 21:00 Nasal Cannula 2.0 09/08/20 20:00 97.9 76 16 111/67 (82) 92 09/08/20 17:24 80 139/64 09/08/20 16:00 98.6 80 19 139/64 (89) 98 09/08/20 15:22 97.3 09/08/20 14:00 101/79 09/08/20 12:00 98.2 91 16 101/79 (86) 98 I&O Intake and Output 09/08/20 09/09/20 19:00 07:00 Intake Total 1215 ml 750 ml Output Total 1100 ml Balance 1215 ml -350 ml Intake Oral 740 ml 150 ml IV Total 475 ml 600 ml Output Urine Total 1100 ml # Voids 4 Cardiovascular: RSR Respiratory: clear Abdomen: soft, non-tender, present bowel sounds Extremities: no edema, no tenderness, no cyanosis Plan Problems: (1) Hyponatremia (2) Pancreatitis Assessment & Plan: Liver measures 15.5 cm in craniocaudal dimension. Echotexture of the liver is slightly heterogeneous, limiting evaluation for focal mass. There is no intrahepatic biliary ductal dilatation. The common bile duct measures 0.3 cm, within normal limits. The gallbladder is markedly distended with internal sludge near the gallbladder neck. No definite stone is appreciated, though the gallbladder neck is not well evaluated. There is no definite wall thickening. There is no sonographic Del Cid's sign. Correlate for recent pain medication administration, which would make sonographic Del Cid sign nondiagnostic. Pancreas is not well evaluated due to shadowing artifact from bowel gas. Right kidney measures 8.5 x 3.9 x 4.2 cm. The right renal parenchyma is not well evaluated due to shadowing artifact from ribs. There is no right renal hydronephrosis. There is cortical scarring of the right kidney at the mid to upper pole region. Left kidney measures 8.2 x 4.5 x 4.4 cm. The left renal parenchyma, is not well evaluated due to shadowing artifact from ribs. There is no left renal hydronephrosis. Probable areas of cortical scarring of the left kidney is noted. Spleen measures 8.2 cm, within normal limits. There is no significant free fluid. Aorta and IVC are not well evaluated due to limitations of the study described above. Aorta measures approximately 2.4 cm in the upper abdomen. IMPRESSION: Evaluation is limited due to body habitus and rib shadowing artifact. Gallbladder is markedly distended with internal sludge near the gallbladder neck. No definite stone is appreciated, though the gallbladder neck is not well evaluated. There is no definite gallbladder wall thickening. There is no sonographic Del Cid's sign. Correlate for recent pain medication administration, which would make sonographic Del Cid sign nondiagnostic. Findings are equivocal for acute cholecystitis. Correlation with HIDA scan is recommended. (3) Abdominal pain Assessment & Plan: 85F abd pain for months. afebrile, HD Stable on admission lipase elevated now normal cramping pain US with sludge and distended GB. no josh elier fluid or inflammation of wall murphys negative HIDA pending - negative IV abx labs and imaging reviewed. no organic finding to correlate with symptoms. no acute surgical intervention planned appreciate GI input okay for trial diet diet as tolerated okay to d/c home from surgical standpoint will follow with recs thank you (4) CHF (congestive heart failure) (5) Chest pain (6) Elevated alkaline phosphatase level (7) Anemia (8) Diarrhea (9) Diverticulosis (10) Pleural effusion Wes Juarez Sep 09, 2020 11:50
[2020-09-09 12:00] VITALS: BP 167/84
[2020-09-09 16:00] VITALS: BP 143/76
[2020-09-09] MEDS: NS w/KCl 20mEq 1000ml 1,000 ML IV SCH (16:23)
--- NOTE | 2020-09-09 19:29 | NUR ---
NURSE HAND-OFF: Important Events on Shift: hydration, pain management Patient Status: stable Diet: cardiac Pending Orders: n/a Pending Results/Labs:n/a Pending MD notification:n/a Latest Vital Signs: Temperature 97.8 , Pulse 97 , B/P 148 /79 , Respiratory Rate 21 , O2 SAT 95 , Nasal Cannula, O2 Flow Rate 2.0 . Vital Sign Comment: n/a Latest Nur Fall Score: 45 Fall Risk: High Risk Safety Measures: Call light Within Reach, Side Rails x2, Bed position Low and Locked. Fall Precautions: Yellow Socks Yellow Gown Door Sign Patient Fall Education Report given to Yanick SEQUEIRA.
--- NOTE | 2020-09-09 19:30 | NUR ---
NURSE NOTES: Received report from Radha SEQUEIRA. Rounding is done. Patient is a/o x4. Denied any pain at this time. No any distress noted at this time. Breathing is even and unlabored. Radha stated patient has discoloration on Rt upper arm, and Rt flank and Dr Demarco aware it. Iv site is intact and iv fluid is running. All safety measures are provided. Bed is on alarm, locked, and lowest position. Call light within reach. Will continue to monitor.
[2020-09-09 20:00] VITALS: BP 154/84
--- NOTE | 2020-09-09 20:24 | General Progress Note ---
Subjective ROS Limited/Unobtainable: No Constitutional: Reports: malaise, weakness HEENT: Reports: no symptoms Cardiovascular: Reports: no symptoms Respiratory: Reports: no symptoms Gastrointestinal/Abdominal: Reports: abdominal pain Genitourinary: Reports: no symptoms Neurologic/Psychiatric: Reports: no symptoms Endocrine: Reports: no symptoms Hematologic/Lymphatic: Reports: no symptoms Allergies: Coded Allergies: No Known Allergies (Unverified , 12/27/15) All Systems: reviewed and negative except above Subjective no events. no new complaints. still with abd pain. still requiring intermittent iv pain meds. Objective Last 24 Hour Vital Signs Date Time Temp Pulse Resp B/P (MAP) Pulse Ox O2 Delivery O2 Flow Rate FiO2 09/09/20 17:48 97 148/79 09/09/20 16:00 97.8 89 21 143/76 (98) 95 09/09/20 13:41 144/75 09/09/20 12:00 97.7 90 24 167/84 (111) 96 09/09/20 09:00 Nasal Cannula 2.0 09/09/20 08:38 148/101 09/09/20 08:38 111 148/101 09/09/20 08:37 111 148/101 09/09/20 08:00 97.7 111 24 148/101 (117) 93 09/09/20 05:30 97.7 81 18 142/70 (94) 96 09/09/20 05:28 142/70 09/09/20 00:00 97.7 86 20 137/68 (91) 94 09/08/20 23:22 96 Nasal Cannula 2.0 28 09/08/20 23:12 72 17 98 Nasal Cannula 2.0 28 69 17 96 09/08/20 22:37 140/83 09/08/20 21:00 Nasal Cannula 2.0 Intake and Output 0 09/08/20 09/09/20 19:00 07:00 Intake Total 1215 ml 750 ml Output Total 1100 ml Balance 1215 ml -350 ml Intake Oral 740 ml 150 ml IV Total 475 ml 600 ml Output Urine Total 1100 ml # Voids 4 Height (Feet): 5 Height (Inches): 5.00 Weight (Pounds): 157 Objective General Appearance: WD/WN, no apparent distress, alert EENT: PERRL/EOMI Neck: non-tender, normal alignment, supple Cardiovascular: normal rate, regular rhythm Respiratory/Chest: chest wall non-tender, lungs clear, normal breath sounds, no respiratory distress Abdomen: normal bowel sounds, non tender, soft, no organomegaly, no mass Edema: no edema noted Arm (L), no edema noted Arm (R) Edema: trace edema 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, no motor/sensory deficits, alert, oriented x 3, responsive Assessment/Plan Problem List: (1) Chest pain ICD Codes: R07.9 - Chest pain, unspecified SNOMED: 99399462 (2) Abdominal pain ICD Codes: R10.9 - Unspecified abdominal pain SNOMED: 55221960 Qualifiers: Qualified Codes: R10.13 - Epigastric pain (3) Hyponatremia ICD Codes: E87.1 - Hypo-osmolality and hyponatremia SNOMED: 95049696 (4) CHF (congestive heart failure) ICD Codes: I50.9 - Heart failure, unspecified SNOMED: 21641163 (5) Elevated alkaline phosphatase level ICD Codes: R74.8 - Abnormal levels of other serum enzymes SNOMED: 299368997 Status: stable, progressing Assessment/Plan: HIDA scan negative surgery eval appreciated pain rx eliquis on hold due to bruising- ?resume cards follow up re: afib ct lumbar spine- reviewed. deg disc dz stress ulcer prophylaxis add reglan and simethicone atc d/w pt possible dc- does not feel ready to go. "i will come right back." Eliud Demarco MD Sep 09, 2020 20:24
[2020-09-09] MEDS: Simethicone 80mg tab ORAL SCH (21:50)
--- NOTE | 2020-09-09 22:17 | Psych Consult Progress Note ---
Psychiatry Progress Note Psychiatry Progress Note Subjective sleeping better no behavioral issues pleasant Medications Current Medications Medications (Trade) Dose Ordered Sig/Nisha Route PRN Reason Start Time Stop Time Status Last Admin Dose Admin Acetaminophen (Tylenol) 500 mg TIDPRN PRN ORAL pain 1-3, T>100.5F, headache 09/03/20 15:15 10/03/20 15:14 09/06/20 05:46 Albuterol/ Ipratropium (Albuterol/ Ipratropium) 3 ml Q4H PRN HHN Shortness of Breath 09/08/20 23:00 09/13/20 22:59 09/08/20 23:12 Amlodipine Besylate (Norvasc) 5 mg DAILY ORAL 09/03/20 16:00 10/03/20 15:59 09/09/20 08:38 Diclofenac Sodium (Voltaren gel) 1 applic QID TOPIC 09/05/20 13:00 12/04/20 12:59 09/09/20 21:50 Fluticasone Propionate (Flonase) 1 spray TWICE A DAY NASAL 09/03/20 18:00 10/03/20 17:59 09/09/20 17:48 Hydralazine HCl (Apresoline) 50 mg Q8HR ORAL 09/03/20 16:00 12/02/20 15:59 09/09/20 21:53 Hydromorphone HCl (Dilaudid) 1 mg Q4H PRN IVP For Pain 09/04/20 07:45 09/11/20 07:44 09/09/20 00:57 Hyoscyamine Sulfate (Levsin) 0.125 mg Q4H PRN ORAL Abdominal cramps 09/03/20 22:45 10/03/20 22:44 09/08/20 17:24 Losartan Potassium (Cozaar) 100 mg DAILY ORAL 09/03/20 16:00 10/03/20 15:59 09/09/20 08:38 Metoprolol Tartrate (Lopressor) 12.5 mg BID ORAL 09/05/20 18:00 12/04/20 17:59 09/09/20 17:48 Mirtazapine (Remeron) 15 mg BEDTIME ORAL 09/08/20 21:00 12/07/20 20:59 09/09/20 21:50 Morphine Sulfate (Morphine Sulfate) 1 mg Q4H PRN IVP For Pain 09/03/20 22:15 09/10/20 22:14 09/06/20 11:27 Pantoprazole (Protonix) 40 mg EVERY 12 HOURS IVP 09/03/20 23:00 10/03/20 22:59 09/09/20 21:50 Polyethylene Glycol (Miralax) 17 gm HSPRN PRN ORAL Constipation 09/03/20 15:15 10/03/20 15:14 09/05/20 00:03 Potassium Chloride/Sodium Chloride 1,000 ml @ 50 mls/hr Q20H IV 09/08/20 20:00 10/08/20 19:59 09/09/20 16:23 Simethicone (Mylicon) 80 mg TID ORAL 09/09/20 20:30 12/08/20 20:29 09/09/20 21:50 Neurological/Psychiatric: Reports: no symptoms Allergies: Coded Allergies: No Known Allergies (Unverified , 12/27/15) Objective Data Height (Feet): 5 Height (Inches): 5.00 Weight (Pounds): 157 General Appearance: WD/WN, no apparent distress, alert Additional Comments: alert and oriented times self, place, and situation. Pleasant, Bengali speaking. Mood is anxious. Affect is blunted, congruent with mood. Thought process linear. Thought content, no suicidal or homicidal ideation. Cognition is intact. Insight and judgment is fair. Assessment/Plan Status: stable, progressing Assessment/Plan: ASSESSMENT: [place] I Anxiety disorder. [place] II Deferred. [place] III Hypertension. [place] IV Low. [place] V 25. PLAN: 1. The patient is currently started on Remeron 15 at bedtime. 2. Provide the patient with reality orientation and supportive therapy. Saroj Ketn MD Sep 09, 2020 22:17
--- NOTE | 2020-09-09 23:03 | General Progress Note ---
Subjective Allergies: Coded Allergies: No Known Allergies (Unverified , 12/27/15) Subjective Eating well notes intermittent epigastric discomfort Objective Last 24 Hour Vital Signs Date Time Temp Pulse Resp B/P (MAP) Pulse Ox O2 Delivery O2 Flow Rate FiO2 09/09/20 21:53 154/84 09/09/20 20:00 97.9 80 19 154/84 (107) 96 09/09/20 17:48 97 148/79 09/09/20 16:00 97.8 89 21 143/76 (98) 95 09/09/20 13:41 144/75 09/09/20 12:00 97.7 90 24 167/84 (111) 96 09/09/20 09:00 Nasal Cannula 2.0 09/09/20 08:38 148/101 09/09/20 08:38 111 148/101 09/09/20 08:37 111 148/101 09/09/20 08:00 97.7 111 24 148/101 (117) 93 09/09/20 05:30 97.7 81 18 142/70 (94) 96 09/09/20 05:28 142/70 09/09/20 00:00 97.7 86 20 137/68 (91) 94 09/08/20 23:22 96 Nasal Cannula 2.0 28 09/08/20 23:12 72 17 98 Nasal Cannula 2.0 28 69 17 96 Intake and Output 09/08/20 09/09/20 19:00 07:00 Intake Total 1215 ml 750 ml Output Total 1100 ml Balance 1215 ml -350 ml Intake Oral 740 ml 150 ml IV Total 475 ml 600 ml Output Urine Total 1100 ml # Voids 4 Height (Feet): 5 Height (Inches): 5.00 Weight (Pounds): 157 Objective WDWN woman NCAT supple CY+TA RR Abd soft ND NT no edema Assessment/Plan Status: stable, progressing Assessment/Plan: Assessment - 2 mo of intermittent post parandial epigastric pain - cholelithiasis / GB sludge - h/o gastritis - mild anemia - OB (+) - HTN - hypercholesterolemia Recommendations - monitor labs - Protonix - f.u GI biopsy results - can consider outpatient capsule endocopy Teodoro Huertas MD Sep 09, 2020 23:03
[2020-09-10] VITALS: BP 124/76
--- NOTE | 2020-09-10 00:51 | Cardiology Progress Note ---
Subjective DATE OF SERVICE: Sep 09, 2020 Still with abdominal pain requiring IV meds Episodes of rapid heart rates. S/p panendoscopy; biopsies and H.pylori all negative. No CP Troponins negative Lipase level now normal US reveals cholelithiasis and sludge; HIDA scan negative. Repeat EKG 09/05/20 reveals atrial fibrillation with adequate rate control. Anticoagulation started and stopped within 24hrs due to bruising and heme positive stool. Objective Last 24 Hour Vital Signs Date Time Temp Pulse Resp B/P (MAP) Pulse Ox O2 Delivery O2 Flow Rate FiO2 09/10/20 00:00 98.5 79 17 124/76 (92) 96 09/09/20 21:53 154/84 09/09/20 21:00 Nasal Cannula 2.0 09/09/20 20:00 97.9 80 19 154/84 (107) 96 09/09/20 17:48 97 148/79 09/09/20 16:00 97.8 89 21 143/76 (98) 95 09/09/20 13:41 144/75 09/09/20 12:00 97.7 90 24 167/84 (111) 96 09/09/20 09:00 Nasal Cannula 2.0 09/09/20 08:38 148/101 09/09/20 08:38 111 148/101 09/09/20 08:37 111 148/101 09/09/20 08:00 97.7 111 24 148/101 (117) 93 09/09/20 05:30 97.7 81 18 142/70 (94) 96 09/09/20 05:28 142/70 ROS: unchanged from my evaluation 09/03/20 LUNGS: lungs clear bilaterally CARDIAC: normal rate, normal S1 and S2, irregularly irregular ABDOMEN: normal bowel sounds, soft, tender - mildly in midepigastric area, slig htly distended, other - right flank bruising EXTREMITIES: No edema, other - right shoulder bruising posteriorly Assessment/Plan Assessment/Plan Abdominal Pain - etiology unclear Elevated lipase on admit with distant hx of pancreatitis Non-cardiac chest pain; negative ischemia work up in past. Low range lipid parameters. Paroxysmal atrial fibrillationn with episodes of increased ventricular rates Bruising and heme positive stool while on anticoagulation. Await final GI recommendations. Titrate beta dorys for rate control. Holding anticoagulation due to increased risk to benefit ratio at present. DC IVF Taper off IV morphine Kyle Lopez MD Sep 10, 2020 00:51
[2020-09-10 04:00] VITALS: BP 157/78
[2020-09-10 05:53] LABS: ALANINE AMINOTRANSFERASE 17 U/L (12-78); ALBUMIN 2.8 G/DL (3.4-5.0); ALBUMIN/GLOBULIN RATIO 0.9 (1.0-2.7); ALKALINE PHOSPHATASE 73 U/L (46-116); ASPARTATE AMINO TRANSFERASE 27 U/L (15-37); BILIRUBIN,TOTAL 0.6 MG/DL (0.2-1.0); BLOOD UREA NITROGEN 7 mg/dL (7-18); CALCIUM 8.9 MG/DL (8.5-10.1); CARBON DIOXIDE 26 MMOL/L (21-32); CHLORIDE 108 MMOL/L (98-107); CREATININE 1.1 MG/DL (0.55-1.30); POTASSIUM 3.5 MMOL/L (3.5-5.1); SODIUM 142 MMOL/L (136-145)
[2020-09-10] MEDS: HydrALAZINE 50mg tab ORAL SCH ×3 (05:54→21:40)
--- NOTE | 2020-09-10 07:16 | NUR ---
NURSE HAND-OFF: Important Events on Shift:[Safety] Patient Status: [stable] Diet: [cardiac] Pending Orders: [n] Pending Results/Labs:[n] Pending MD notification:[n] Latest Vital Signs: Temperature 98.2 , Pulse 88 , B/P 157 /78 , Respiratory Rate 18 , O2 SAT 95 , Nasal Cannula, O2 Flow Rate 2.0 . Vital Sign Comment: [stable] Latest Nur Fall Score: 45 Fall Risk: High Risk Safety Measures: Call light Within Reach, Bed Alarm Zone 1, Side Rails Side Rails x2, Bed position Low and Locked. Fall Precautions: Yellow Socks Yellow Gown Door Sign Patient Fall Education Report given to [DOMINICKCO RN].
--- NOTE | 2020-09-10 07:20 | NUR ---
NURSE NOTES: Handoff received from Yanick SEQUEIRA. Patient is asleep, no signs of acute distress noted, breathing is even and unlabored on 2L NC. Left forearm IV is intact and asymptomatic, saline locked. Bedside commode is accessible. Bed is low and locked, side rails up x2, call light is within reach.
[2020-09-10 08:00] VITALS: BP 131/67
[2020-09-10] MEDS: Simethicone 80mg tab ORAL SCH ×3 (09:10→17:50)
[2020-09-10] MEDS: HYDROmorphone 1mg/ml Carpuject IVP PRN (09:11)
[2020-09-10] MEDS: Losartan 50mg tab ORAL SCH (09:11)
[2020-09-10] MEDS: Pantoprazole Inj IVP SCH ×2 (09:11→21:40)
[2020-09-10] MEDS: Flonase Nasal Inhaler 16gm NASAL SCH ×2 (09:13→17:55)
[2020-09-10] MEDS: Diclofenac 1% Gel 100gm TOPIC SCH ×4 (09:13→21:40)
--- NOTE | 2020-09-10 10:15 | NUR ---
NURSE NOTES: Called and left a message for Dr. Lopez regarding pain scale for morphine 1mg and changing albuterol to xopenex because of the patient's heart rate.
[2020-09-10 12:00] VITALS: BP 132/84
[2020-09-10] MEDS ORDERED: Levalbuterol Inh UD 1.25mg/0.5ml HHN PRN (12:00)
--- NOTE | 2020-09-10 12:41 | NUR ---
CASE MANAGEMENT:REVIEW 09/10/20 SI: CHOLELITHIASIS/GB SLUDGE. PAFIB C/O PERSISTENT ABDOMINAL PAIN 97.9 98 20 132/84 96% ON 2L/NC IS: LOPRESSOR PO BID MYLICON PO TID REMERON PO QHS IV PROTONIX Q12 FLONASE BID COZAAR PO QD HYDRALAZINE PO Q8HRS NORVASC PO QD IV DILAUDID Q4HRS SC : MED/SURG STATUS 3 EAST DCP: PATIENT IS FROM HOME PLAN: HIDA (-). EGD/COLONOSCOPY(+) EROSIVE GASTRITIS DC IVF TAPER OFF DILAUDID HOLDING ANTICOAGULANTS
--- NOTE | 2020-09-10 13:49 | Surgery Progress Note ---
Surgery Progress Note Subjective Symptoms: improved, tolerating diet, passing flatus, BM, pain decreased Objective Last 24 Hour Vital Signs Date Time Temp Pulse Resp B/P (MAP) Pulse Ox O2 Delivery O2 Flow Rate FiO2 09/10/20 13:17 103 20 99 Nasal Cannula 2.0 28 117 20 94 09/10/20 12:00 97.9 98 20 132/84 (100) 96 09/10/20 09:41 98.2 09/10/20 09:11 131/67 09/10/20 09:10 92 131/67 09/10/20 09:08 92 131/67 09/10/20 09:00 Nasal Cannula 2.0 09/10/20 08:00 98.4 92 20 131/67 (88) 95 09/10/20 05:54 157/78 09/10/20 04:00 98.2 88 18 157/78 (104) 95 09/10/20 00:00 98.5 79 17 124/76 (92) 96 09/09/20 21:53 154/84 09/09/20 21:00 Nasal Cannula 2.0 09/09/20 20:00 97.9 80 19 154/84 (107) 96 09/09/20 19:45 96 Nasal Cannula 2.0 28 09/09/20 17:48 97 148/79 09/09/20 16:00 97.8 89 21 143/76 (98) 95 I&O Intake and Output 09/09/20 09/10/20 19:00 07:00 Intake Total 650 ml Balance 650 ml Intake Oral 400 ml IV Total 250 ml # Voids 5 2 Cardiovascular: RSR Respiratory: clear Abdomen: soft, non-tender, present bowel sounds Extremities: no edema, no tenderness, no cyanosis Laboratory Tests Test 09/10/20 05:00 Sodium Level 142 MMOL/L (136-145) Potassium Level 3.5 MMOL/L (3.5-5.1) Chloride Level 108 MMOL/L (98-107) H Carbon Dioxide Level 26 MMOL/L (21-32) Blood Urea Nitrogen 7 mg/dL (7-18) Creatinine 1.1 MG/DL (0.55-1.30) Estimat Glomerular Filtration Rate 47.3 mL/min (>60) Glucose Level 92 MG/DL (74-106) Calcium Level 8.9 MG/DL (8.5-10.1) Total Bilirubin 0.6 MG/DL (0.2-1.0) Aspartate Amino Transf (AST/SGOT) 27 U/L (15-37) Alanine Aminotransferase (ALT/SGPT) 17 U/L (12-78) Alkaline Phosphatase 73 U/L (46-116) Total Protein 5.8 G/DL (6.4-8.2) L Albumin 2.8 G/DL (3.4-5.0) L Globulin 3.0 g/dL Albumin/Globulin Ratio 0.9 (1.0-2.7) L Plan Problems: (1) Hyponatremia (2) Pancreatitis Assessment & Plan: Liver measures 15.5 cm in craniocaudal dimension. Echotexture of the liver is slightly heterogeneous, limiting evaluation for focal mass. There is no intrahepatic biliary ductal dilatation. The common bile duct measures 0.3 cm, within normal limits. The gallbladder is markedly distended with internal sludge near the gallbladder neck. No definite stone is appreciated, though the gallbladder neck is not well evaluated. There is no definite wall thickening. There is no sonographic Del Cid's sign. Correlate for recent pain medication administration, which would make sonographic Del Cid sign nondiagnostic. Pancreas is not well evaluated due to shadowing artifact from bowel gas. Right kidney measures 8.5 x 3.9 x 4.2 cm. The right renal parenchyma is not well evaluated due to shadowing artifact from ribs. There is no right renal hydronephrosis. There is cortical scarring of the right kidney at the mid to upper pole region. Left kidney measures 8.2 x 4.5 x 4.4 cm. The left renal parenchyma, is not well evaluated due to shadowing artifact from ribs. There is no left renal hydronephrosis. Probable areas of cortical scarring of the left kidney is noted. Spleen measures 8.2 cm, within normal limits. There is no significant free fluid. Aorta and IVC are not well evaluated due to limitations of the study described above. Aorta measures approximately 2.4 cm in the upper abdomen. IMPRESSION: Evaluation is limited due to body habitus and rib shadowing artifact. Gallbladder is markedly distended with internal sludge near the gallbladder neck. No definite stone is appreciated, though the gallbladder neck is not well evaluated. There is no definite gallbladder wall thickening. There is no sonographic Del Cid's sign. Correlate for recent pain medication administration, which would make sonographic Del Cid sign nondiagnostic. Findings are equivocal for acute cholecystitis. Correlation with HIDA scan is recommended. (3) Abdominal pain Assessment & Plan: 85F abd pain for months. afebrile, HD Stable on admission lipase elevated now normal cramping pain US with sludge and distended GB. no josh elier fluid or inflammation of wall murphys negative HIDA pending - negative IV abx labs and imaging reviewed. no organic finding to correlate with symptoms. no acute surgical intervention planned appreciate GI input jimmy for trial diet diet as tolerated okay to d/c home from surgical standpoint will follow with recs thank you (4) CHF (congestive heart failure) (5) Chest pain (6) Elevated alkaline phosphatase level (7) Anemia (8) Diarrhea (9) Diverticulosis (10) Pleural effusion Wes Juarez Sep 10, 2020 13:48
--- NOTE | 2020-09-10 14:03 | NUR ---
CASE MANGER NOTE MET WITH KYRGYZ SPEAKING FEMALE PATIENT AT BEDSIDE IN RE TO RECOMMENDATION FOR SNF. PER PATIENT, REFUSED SNF PLACEMENT AND STATED SHE PREFERS TO RETURN HOME UPON [place]. PATIENT STATED SHE HAS A CAREGIVER WHO ASSISTS HER IN THE DAY AND SHE WILL HAVE A FAMILY MEMBER OR FRIEND BEGIN TO STAY WITH HER AT NIGHT. PATIENT REQUESTS FOR HER CAREGIVER, AMRIK TO BE NOTIFIED @ [phone] [place] SHE WILL PROVIDE PATIENT TRANSPORTATION HOME.
[2020-09-10 16:00] VITALS: BP 135/63
--- NOTE | 2020-09-10 16:31 | General Progress Note ---
Subjective Allergies: Coded Allergies: No Known Allergies (Unverified , 12/27/15) Subjective more distressed this am notes intermittent epigastric discomfort gets SOB when she has these attacks of chest and abd pain GI path reviewed - all biopsies without any significant pathology Objective Last 24 Hour Vital Signs Date Time Temp Pulse Resp B/P (MAP) Pulse Ox O2 Delivery O2 Flow Rate FiO2 09/10/20 14:08 132/84 09/10/20 13:17 103 20 99 Nasal Cannula 2.0 28 117 20 94 09/10/20 12:00 97.9 98 20 132/84 (100) 96 09/10/20 09:41 98.2 09/10/20 09:11 131/67 09/10/20 09:10 92 131/67 09/10/20 09:08 92 131/67 09/10/20 09:00 Nasal Cannula 2.0 09/10/20 08:00 98.4 92 20 131/67 (88) 95 09/10/20 05:54 157/78 09/10/20 04:00 98.2 88 18 157/78 (104) 95 09/10/20 00:00 98.5 79 17 124/76 (92) 96 09/09/20 21:53 154/84 09/09/20 21:00 Nasal Cannula 2.0 09/09/20 20:00 97.9 80 19 154/84 (107) 96 09/09/20 19:45 96 Nasal Cannula 2.0 28 09/09/20 17:48 97 148/79 Intake and Output 09/09/20 09/10/20 19:00 07:00 Intake Total 650 ml Balance 650 ml Intake Oral 400 ml IV Total 250 ml # Voids 5 2 Laboratory Tests 09/10/20 05:00: Sodium Level 142, Potassium Level 3.5, Chloride Level 108H, Carbon Dioxide Level 26, Blood Urea Nitrogen 7, Creatinine 1.1, Estimat Glomerular Filtration Rate 47.3, Glucose Level 92, Calcium Level 8.9, Total Bilirubin 0.6, Aspartate Amino Transf (AST/SGOT) 27, Alanine Aminotransferase (ALT/SGPT) 17, Alkaline Phosphatase 73, Total Protein 5.8L, Albumin 2.8L, Globulin 3.0, Albumin/Globulin Ratio 0.9L Height (Feet): 5 Height (Inches): 5.00 Weight (Pounds): 157 Objective WDWN woman NCAT supple CY+TA RR Abd soft ND NT no edema Assessment/Plan Status: stable, progressing Assessment/Plan: Assessment - 2 mo of intermittent post parandial epigastric/chest pain - cholelithiasis / GB sludge - h/o gastritis - mild anemia - OB (+) --> s/p unrevealing EGD/Colon - HTN - hypercholesterolemia Recommendations - monitor labs - Continue BID Protonix - add trial of QID carafate - can consider outpatient capsule endocopy Teodoro Huertas MD Sep 10, 2020 16:31
--- NOTE | 2020-09-10 17:21 | Cardiology Progress Note ---
Subjective DATE OF SERVICE: Sep 10, 2020 Still with abdominal pain and is requesting IV meds Episodes of rapid heart rates, frequently with inhaled bronchodilator therapy S/p panendoscopy; biopsies and H.pylori all negative. No CP; troponins negative Lipase level now normal US reveals cholelithiasis and sludge; HIDA scan negative. EKG 09/05/20 revealed atrial fibrillation with adequate rate control. Anticoagulation started and stopped within 24hrs due to bruising and heme positive stool. Objective Last 24 Hour Vital Signs Date Time Temp Pulse Resp B/P (MAP) Pulse Ox O2 Delivery O2 Flow Rate FiO2 09/10/20 14:08 132/84 09/10/20 13:17 103 20 99 Nasal Cannula 2.0 28 117 20 94 09/10/20 12:00 97.9 98 20 132/84 (100) 96 09/10/20 09:41 98.2 09/10/20 09:11 131/67 09/10/20 09:10 92 131/67 09/10/20 09:08 92 131/67 09/10/20 09:00 Nasal Cannula 2.0 09/10/20 08:00 98.4 92 20 131/67 (88) 95 09/10/20 05:54 157/78 09/10/20 04:00 98.2 88 18 157/78 (104) 95 09/10/20 00:00 98.5 79 17 124/76 (92) 96 09/09/20 21:53 154/84 09/09/20 21:00 Nasal Cannula 2.0 09/09/20 20:00 97.9 80 19 154/84 (107) 96 09/09/20 19:45 96 Nasal Cannula 2.0 28 09/09/20 17:48 97 148/79 ROS: unchanged from my evaluation 09/03/20 LUNGS: lungs clear bilaterally CARDIAC: normal rate, normal S1 and S2, irregularly irregular ABDOMEN: normal bowel sounds, soft, tender - mildly in midepigastric area, slightly distended, other - right flank bruising EXTREMITIES: No edema, other - right shoulder bruising posteriorly Laboratory Tests Test 09/10/20 05:00 Sodium Level 142 MMOL/L (136-145) Potassium Level 3.5 MMOL/L (3.5-5.1) Chloride Level 108 MMOL/L (98-107) H Carbon Dioxide Level 26 MMOL/L (21-32) Blood Urea Nitrogen 7 mg/dL (7-18) Creatinine 1.1 MG/DL (0.55-1.30) Estimat Glomerular Filtration Rate 47.3 mL/min (>60) Glucose Level 92 MG/DL (74-106) Calcium Level 8.9 MG/DL (8.5-10.1) Total Bilirubin 0.6 MG/DL (0.2-1.0) Aspartate Amino Transf (AST/SGOT) 27 U/L (15-37) Alanine Aminotransferase (ALT/SGPT) 17 U/L (12-78) Alkaline Phosphatase 73 U/L (46-116) Total Protein 5.8 G/DL (6.4-8.2) L Albumin 2.8 G/DL (3.4-5.0) L Globulin 3.0 g/dL Albumin/Globulin Ratio 0.9 (1.0-2.7) L Assessment/Plan Assessment/Plan Abdominal Pain - etiology unclear Elevated lipase on admit with distant hx of pancreatitis Non-cardiac chest pain; negative ischemia work up in past. Low range lipid parameters. Paroxysmal atrial fibrillationn with episodes of increased ventricular rates Bruising and heme positive stool while on anticoagulation. Await final GI recommendations. Titrate beta dorys for rate control. Holding anticoagulation due to increased risk to benefit ratio at present. Off IVF Taper off IV pain Kyle Salguero MD Sep 10, 2020 17:21
[2020-09-10] MEDS: Sucralfate 1gm tab ORAL SCH ×2 (17:50→21:40)
--- NOTE | 2020-09-10 19:25 | NUR ---
NURSE HAND-OFF: Important Events on Shift:[none] Patient Status: stable Diet: cardiac Pending Orders: Pending Results/Labs: Pending MD notification: Latest Vital Signs: Temperature 98.3 , Pulse 77 , B/P 135 /63 , Respiratory Rate 18 , O2 SAT 94 , Nasal Cannula, O2 Flow Rate 2.0 . Vital Sign Comment: stable Latest Nur Fall Score: 45 Fall Risk: High Risk Safety Measures: Call light Within Reach, Bed Alarm Zone 1, Side Rails Side Rails x2, Bed position Low and Locked. Fall Precautions: Yellow Socks Yellow Gown Door Sign Patient Fall Education Report given to Denia SEQUEIRA.
[2020-09-10 20:00] VITALS: BP 154/76
--- NOTE | 2020-09-10 20:00 | NUR ---
NURSES NOTE: Pt in bed, Amharic speaker. Denies pain currently. No outward s/s of distress noted. Breathing pattern is even and unlabored on RA. Experienced SOB previous shift. Not noted currently Bruising noted on R arm and R flank. IV, L wrist, 20g, is intact and flushes well. All due medications will be administered. Bed at lowest level. Call light within reach. Pt will continue to be monitored.
--- NOTE | 2020-09-10 23:36 | Psych Consult Progress Note ---
Psychiatry Progress Note Psychiatry Progress Note Subjective sleeping better no behavioral issues pleasant depressed Medications Current Medications Medications (Trade) Dose Ordered Sig/Nisha Route PRN Reason Start Time Stop Time Status Last Admin Dose Admin Acetaminophen (Tylenol) 500 mg TIDPRN PRN ORAL pain 1-3, T>100.5F, headache 09/03/20 15:15 10/03/20 15:14 09/06/20 05:46 Amlodipine Besylate (Norvasc) 5 mg DAILY ORAL 09/03/20 16:00 10/03/20 15:59 09/10/20 09:10 Diclofenac Sodium (Voltaren gel) 1 applic QID TOPIC 09/05/20 13:00 12/04/20 12:59 09/10/20 21:40 Fluticasone Propionate (Flonase) 1 spray TWICE A DAY NASAL 09/03/20 18:00 10/03/20 17:59 09/10/20 17:55 Hydralazine HCl (Apresoline) 50 mg Q8HR ORAL 09/03/20 16:00 12/02/20 15:59 09/10/20 21:40 Hyoscyamine Sulfate (Levsin) 0.125 mg Q4H PRN ORAL Abdominal cramps 09/03/20 22:45 10/03/20 22:44 09/08/20 17:24 Ipratropium Beulah (Atrovent) 500 mcg Q4H PRN HHN Shortness of Breath 09/10/20 13:30 09/15/20 13:29 Losartan Potassium (Cozaar) 100 mg DAILY ORAL 09/03/20 16:00 10/03/20 15:59 09/10/20 09:11 Metoprolol Tartrate (Lopressor) 25 mg BID ORAL 09/10/20 09:00 12/09/20 08:59 09/10/20 17:51 Mirtazapine (Remeron) 15 mg BEDTIME ORAL 09/08/20 21:00 12/07/20 20:59 09/10/20 21:40 Morphine Sulfate (Morphine Sulfate) 1 mg Q6H PRN IVP For severe Pain 09/10/20 13:15 09/17/20 13:14 Pantoprazole (Protonix) 40 mg EVERY 12 HOURS IVP 09/03/20 23:00 10/03/20 22:59 09/10/20 21:40 Polyethylene Glycol (Miralax) 17 gm HSPRN PRN ORAL Constipation 09/03/20 15:15 10/03/20 15:14 09/05/20 00:03 Simethicone (Mylicon) 80 mg TID ORAL 09/09/20 20:30 12/08/20 20:29 09/10/20 17:50 Sucralfate (Carafate) 1 gm FOUR TIMES A DAY ORAL 09/10/20 18:00 12/09/20 17:59 09/10/20 21:40 Tramadol HCl (Ultram) 50 mg Q6H PRN ORAL Moderate Pain (Pain Scale 4-6) 09/10/20 13:30 09/17/20 13:29 Neurological/Psychiatric: Reports: anxiety, depressed, emotional problems Allergies: Coded Allergies: No Known Allergies (Unverified , 12/27/15) Objective Data Height (Feet): 5 Height (Inches): 5.00 Weight (Pounds): 157 General Appearance: WD/WN, no apparent distress, alert, alert oriented x3 Additional Comments: alert and oriented times self, place, and situation. Pleasant, Bengali speaking. Mood is anxious. Affect is blunted, congruent with mood. Thought process linear. Thought content, no suicidal or homicidal ideation. Cognition is intact. Insight and judgment is fair. Assessment/Plan Paoli I: Status: stable, progressing Assessment/Plan: ASSESSMENT: Paoli I Anxiety disorder. Paoli II Deferred. Paoli III Hypertension. Paoli IV Low. Paoli V 25. Status: stable, progressing Status Narrative Status: stable, progressing Assessment/Plan: ASSESSMENT: Paoli I Anxiety disorder. Paoli II Deferred. Paoli III Hypertension. Paoli IV Low. Paoli V 25. Assessment/Plan: Status: stable, progressing Assessment/Plan: ASSESSMENT: Paoli I Anxiety disorder. Paoli II Deferred. Paoli III Hypertension. Paoli IV Low. Paoli V 25. Saroj Kent MD Sep 10, 2020 23:36
[2020-09-11] MEDS: Hyoscyamine 0.125mg tab ORAL PRN ×2 (01:44→12:59)
[2020-09-11] MEDS: traMADol 50mg tab ORAL PRN (01:45)
[2020-09-11 04:00] VITALS: BP 125/67
[2020-09-11] MEDS: Morphine Sulfate 2mg/ml Inj(IV/IM USE ONLY) IVP PRN ×3 (04:44→20:03)
[2020-09-11] MEDS: HydrALAZINE 50mg tab ORAL SCH ×3 (06:16→22:16)
[2020-09-11] MEDS: Acetaminophen 500mg (ES) tab ORAL PRN (06:26)
--- NOTE | 2020-09-11 06:48 | NUR ---
NURSE HAND-OFF: Important Events on Shift:[Medication not effective for sustainable amount of time. Pt c/o pain very often before another dose can be given.] Patient Status: [STABLE] Diet: [CARDIAC DIET] Pending Orders: [NONE] Pending Results/Labs:[NONE] Pending MD notification:[Pain medication regimen not effective] Latest Vital Signs: Temperature 98.0 , Pulse 71 , B/P 125 /67 , Respiratory Rate 17 , O2 SAT 93 , Room Air, O2 Flow Rate 2.0 . Vital Sign Comment: [within normal limits] Latest Nur Fall Score: 45 Fall Risk: High Risk Safety Measures: Call light Within Reach, Bed Alarm Zone 1, Side Rails Side Rails x2, Bed position Low and Locked. Fall Precautions: Yellow Socks Yellow Gown Door Sign Patient Fall Education Report given to [].
--- NOTE | 2020-09-11 07:15 | NUR ---
HAND OFF: Report given to HUA Aldana
--- NOTE | 2020-09-11 07:45 | NUR ---
NURSE NOTES: Received report from HUA Loza. Pt alert and oriented, Omani speaking. On RA, no respiratory distress noted. No c/o pain at this time. Pt on fall risk precaution, on BSC. Educated pt to use call light for assistance. Pt verbalized understanding. IV intact and patent H/L. Bed in low position and locked. Call light within reach. Will continue to monitor.
[2020-09-11 08:00] VITALS: BP 132/61
--- NOTE | 2020-09-11 08:03 | General Progress Note ---
Subjective ROS Limited/Unobtainable: Yes Allergies: Coded Allergies: No Known Allergies (Unverified , 12/27/15) Subjective still c/o abd pain Objective Last 24 Hour Vital Signs Date Time Temp Pulse Resp B/P (MAP) Pulse Ox O2 Delivery O2 Flow Rate FiO2 09/11/20 06:16 125/67 09/11/20 04:00 98.0 71 17 125/67 (86) 93 09/10/20 21:40 154/76 09/10/20 21:00 Room Air 09/10/20 20:00 97.5 81 18 154/76 (102) 93 09/10/20 17:51 77 135/63 09/10/20 16:00 98.3 77 18 135/63 (87) 94 09/10/20 14:08 132/84 09/10/20 13:17 103 20 99 Nasal Cannula 2.0 28 117 20 94 09/10/20 12:00 97.9 98 20 132/84 (100) 96 09/10/20 09:41 98.2 09/10/20 09:11 131/67 09/10/20 09:10 92 131/67 09/10/20 09:08 92 131/67 09/10/20 09:00 Nasal Cannula 2.0 Intake and Output 09/10/20 09/11/20 19:00 07:00 Intake Total 500 ml 240 ml Balance 500 ml 240 ml Intake Oral 500 ml 240 ml # Voids 3 4 # Bowel Movements 1 Height (Feet): 5 Height (Inches): 5.00 Weight (Pounds): 157 General Appearance: no apparent distress EENT: normal ENT inspection Neck: supple Cardiovascular: normal rate Respiratory/Chest: decreased breath sounds Abdomen: soft, hypoactive bowel sounds, tender Extremities: non-tender Assessment/Plan Status: stable, progressing Assessment/Plan: Assessment - 2 mo of intermittent post parandial epigastric/chest pain - cholelithiasis / GB sludge - h/o gastritis - mild anemia - OB (+) --> s/p unrevealing EGD/Colon - HTN - hypercholesterolemia Recommendations - monitor labs - Continue BID Protonix - add trial of QID carafate - can consider outpatient capsule endoscopy -cbc in am -repeat stool ob Mt Mccormack MD Sep 11, 2020 08:03
[2020-09-11] MEDS: Simethicone 80mg tab ORAL SCH ×3 (08:52→17:16)
[2020-09-11] MEDS: Losartan 50mg tab ORAL SCH (08:52)
[2020-09-11] MEDS: Sucralfate 1gm tab ORAL SCH ×4 (08:52→20:23)
[2020-09-11] MEDS: Diclofenac 1% Gel 100gm TOPIC SCH ×4 (08:53→20:24)
[2020-09-11] MEDS: Pantoprazole Inj IVP SCH ×2 (08:53→20:38)
[2020-09-11] MEDS: Flonase Nasal Inhaler 16gm NASAL SCH ×2 (08:53→17:16)
--- NOTE | 2020-09-11 11:35 | Surgery Progress Note ---
Surgery Progress Note Subjective Additional Comments states was well yesterday but c/o abd pain cramping again today no n/v tolerating diet +BM Objective Last 24 Hour Vital Signs Date Time Temp Pulse Resp B/P (MAP) Pulse Ox O2 Delivery O2 Flow Rate FiO2 09/11/20 08:53 70 132/61 09/11/20 08:52 132/61 09/11/20 08:52 70 132/61 09/11/20 08:00 97.5 70 17 132/61 (84) 94 09/11/20 06:16 125/67 09/11/20 04:00 98.0 71 17 125/67 (86) 93 09/10/20 21:40 154/76 09/10/20 21:00 Room Air 09/10/20 20:00 97.5 81 18 154/76 (102) 93 09/10/20 17:51 77 135/63 09/10/20 16:00 98.3 77 18 135/63 (87) 94 09/10/20 14:08 132/84 09/10/20 13:17 103 20 99 Nasal Cannula 2.0 28 117 20 94 09/10/20 12:00 97.9 98 20 132/84 (100) 96 I&O Intake and Output 09/10/20 09/11/20 19:00 07:00 Intake Total 500 ml 240 ml Balance 500 ml 240 ml Intake Oral 500 ml 240 ml # Voids 3 4 # Bowel Movements 1 Cardiovascular: RSR Respiratory: clear Abdomen: soft, flat, non-tender, present bowel sounds, non-distended Extremities: no edema, no tenderness, no cyanosis Plan Problems: (1) Hyponatremia (2) Pancreatitis Assessment & Plan: Liver measures 15.5 cm in craniocaudal dimension. Echotexture of the liver is slightly heterogeneous, limiting evaluation for focal mass. There is no intrahepatic biliary ductal dilatation. The common bile duct measures 0.3 cm, within normal limits. The gallbladder is markedly distended with internal sludge near the gallbladder neck. No definite stone is appreciated, though the gallbladder neck is not well evaluated. There is no definite wall thickening. There is no sonographic Del Cid's sign. Correlate for recent pain medication administration, which would make sonographic Del Cid sign nondiagnostic. Pancreas is not well evaluated due to shadowing artifact from bowel gas. Right kidney measures 8.5 x 3.9 x 4.2 cm. The right renal parenchyma is not well evaluated due to shadowing artifact from ribs. There is no right renal hydronephrosis. There is cortical scarring of the right kidney at the mid to upper pole region. Left kidney measures 8.2 x 4.5 x 4.4 cm. The left renal parenchyma, is not well evaluated due to shadowing artifact from ribs. There is no left renal hydronephrosis. Probable areas of cortical scarring of the left kidney is noted. Spleen measures 8.2 cm, within normal limits. There is no significant free fluid. Aorta and IVC are not well evaluated due to limitations of the study described above. Aorta measures approximately 2.4 cm in the upper abdomen. IMPRESSION: Evaluation is limited due to body habitus and rib shadowing artifact. Gallbladder is markedly distended with internal sludge near the gallbladder neck. No definite stone is appreciated, though the gallbladder neck is not well evaluated. There is no definite gallbladder wall thickening. There is no sonographic Del Cid's sign. Correlate for recent pain medication administration, which would make sonographic Del Cid sign nondiagnostic. Findings are equivocal for acute cholecystitis. Correlation with HIDA scan is recommended. (3) Abdominal pain Assessment & Plan: 85F abd pain for months. afebrile, HD Stable on admission lipase elevated now normal cramping pain US with sludge and distended GB. no josh elier fluid or inflammation of wall murphys negative HIDA pending - negative IV abx labs and imaging reviewed. no organic finding to correlate with symptoms. no acute surgical intervention planned appreciate GI input okay for trial diet diet as tolerated okay to d/c home from surgical standpoint will follow with recs thank you (4) CHF (congestive heart failure) (5) Chest pain (6) Elevated alkaline phosphatase level (7) Anemia (8) Diarrhea (9) Diverticulosis (10) Pleural effusion Wes Juarez Sep 11, 2020 11:35
[2020-09-11 12:00] VITALS: BP 124/64
[2020-09-11 16:00] VITALS: BP 126/67
--- NOTE | 2020-09-11 19:18 | NUR ---
NURSE HAND-OFF: Important Events on Shift:[stool collected for stool OB test, pt still in pain. pain med works.] Patient Status: [stable] Diet: [cardiac] Pending Orders: [] Pending Results/Labs:[] Pending MD notification:[] Latest Vital Signs: Temperature 97.8 , Pulse 78 , B/P 126 /67 , Respiratory Rate 18 , O2 SAT 94 , Room Air, O2 Flow Rate 2.0 . Vital Sign Comment: [stable] Latest Nur Fall Score: 45 Fall Risk: High Risk Safety Measures: Call light Within Reach, Bed Alarm Zone 1, Side Rails Side Rails x2, Bed position Low and Locked. Fall Precautions: Yellow Socks Yellow Gown Door Sign Patient Fall Education Report given to [SIMRAN Rosario].
[2020-09-11 20:00] VITALS: BP 146/74
--- NOTE | 2020-09-11 20:00 | NUR ---
NURSE NOTES: RECEIVED PATIENT LYING IN BED, EYES CLOSED, AWAKENED TO NAME, [place]OV[place] SPEAKING/LIMITED CITIZEN OF [place]. NO SIGNS AND SYMPTOMS OF ACUTE CARDIO RESPIRATORY DISTRESS/SHORTNESS OF BREATH, NO PERIPHERAL EDEMA NOTED. IV INTACT, NO REDNESS/SWELLING NOTED. ABDOMEN SOFT,AUDIBLE BOWEL SOUNDS, TENDERNESS NOTED TO LOWER ABDOMEN/BACK, DENIES NAUSEA. VOLTAREN CREAM APPLIED FOR PAIN RELIEF, PM MEDICATIONS ADM., TOLERATED WELL. DR. ART IN TO ASSESS PATIENT MADE AWARE OF PATIENT COMPLAINTS, NO NEW ORDERS AT THIS TIME. SIDE RAILS UP X3, BED IN LOWEST POSITION FOR SAFETY, ENCOURAGED PATIENT TO UTILIZE CALL LIGHT FOR ASSISTANCE, VERBALIZED UNDERSTANDING. CONTINUE WITH CURRENT PLAN OF CARE. NAD.
[2020-09-11] MEDS: Miralax 17gm pkt ORAL PRN (20:40)
[2020-09-11] MEDS: Ipratropium 0.02% Inh Soln 2.5ml UD HHN PRN (21:10)
[2020-09-12] VITALS (7 sets, daily range): BP systolic 110–140; BP diastolic 53–71
--- NOTE | 2020-09-12 01:52 | Cardiology Progress Note ---
Subjective DATE OF SERVICE: Sep 11, 2020 No improvement in abdominal pain and continues requesting IV morphine Episodes of rapid heart rates, frequently with inhaled bronchodilator therapy S/p panendoscopy; biopsies and H.pylori all negative. No CP; troponins negative Lipase level now normal US reveals cholelithiasis and sludge; HIDA scan negative. EKG 09/05/20 revealed atrial fibrillation with adequate rate control. Anticoagulation started and stopped within 24hrs due to bruising and heme positive stool. Objective Last 24 Hour Vital Signs Date Time Temp Pulse Resp B/P (MAP) Pulse Ox O2 Delivery O2 Flow Rate FiO2 09/12/20 00:00 97.9 72 18 122/53 (76) 95 09/11/20 22:16 149/75 09/11/20 21:23 64 20 99 Room Air 21 09/11/20 21:10 63 22 94 Room Air 21 09/11/20 21:00 Room Air 09/11/20 20:00 98.1 67 20 146/74 (98) 94 09/11/20 19:40 97 Room Air 21 09/11/20 19:40 79 18 97 Room Air 21 09/11/20 17:16 78 126/67 09/11/20 16:00 97.8 78 18 126/67 (86) 94 09/11/20 14:29 124/64 09/11/20 13:29 98.0 09/11/20 12:07 96 Room Air 21 09/11/20 12:00 98.0 80 18 124/64 (84) 94 09/11/20 09:00 Room Air 09/11/20 08:53 70 132/61 09/11/20 08:52 132/61 09/11/20 08:52 70 132/61 09/11/20 08:00 97.5 70 17 132/61 (84) 94 09/11/20 06:16 125/67 09/11/20 04:00 98.0 71 17 125/67 (86) 93 ROS: unchanged from my evaluation 09/03/20 LUNGS: lungs clear bilaterally CARDIAC: normal rate, normal S1 and S2, irregularly irregular ABDOMEN: normal bowel sounds, soft, tender - mildly in midepigastric area, slightly distended, other - right flank bruising EXTREMITIES: No edema, other - right shoulder bruising posteriorly Laboratory Tests Test 09/11/20 17:53 Stool Occult Blood Negative (NEGATIVE) Assessment/Plan Assessment/Plan Abdominal Pain - etiology unclear Elevated lipase on admit with distant hx of pancreatitis Non-cardiac chest pain; negative ischemia work up in past. Low range lipid parameters. Paroxysmal atrial fibrillationn with episodes of increased ventricular rates Bruising and heme positive stool while on anticoagulation. Will order UGIs with SBFT Titrate beta dorys for rate control. Holding anticoagulation due to increased risk to benefit ratio at present. Off IVF Taper off IV pain meds Kyle Lopez MD Sep 12, 2020 01:52
[2020-09-12 05:29] LABS: BASOPHILS % (AUTO) 2.6 % (0.0-2.0); EOSINOPHILS % (AUTO) 9.3 % (0.0-3.0); HEMOGLOBIN 11.1 G/DL (12.0-16.0); LYMPHOCYTES % (AUTO) 25.9 % (20.0-45.0); MEAN CORPUSCULAR VOLUME 88 FL (80-99); MONOCYTES % (AUTO) 11.4 % (1.0-10.0); NEUTROPHILS % (AUTO) 50.7 % (45.0-75.0); PLATELET COUNT 230 K/UL (150-450); RED BLOOD COUNT 3.74 M/UL (4.20-5.40); RED CELL DISTRIBUTION WIDTH 12.5 % (11.6-14.8); WHITE BLOOD COUNT 5.2 K/UL (4.8-10.8)
[2020-09-12 05:41] LABS: CALCIUM 9.2 MG/DL (8.5-10.1); CREATININE 1.1 MG/DL (0.55-1.30); POTASSIUM 3.4 MMOL/L (3.5-5.1)
[2020-09-12] MEDS: Ipratropium 0.02% Inh Soln 2.5ml UD HHN PRN (05:48)
[2020-09-12] MEDS: HydrALAZINE 50mg tab ORAL SCH ×3 (06:54→21:23)
--- NOTE | 2020-09-12 07:08 | NUR ---
NURSE HAND-OFF: Important Events on Shift:[UPPER GI WITH SMALL BOWEL] Patient Status: [STABLE] Diet: [CARDIAC, TRAY HELD PENDING POSSIBLE GI PROCEDURE] Pending Orders: [UPPER GI WITH SMALL BOWEL] Pending Results/Labs:[AM LABS] Pending MD notification:[] Latest Vital Signs: Temperature 98.0 , Pulse 74 , B/P 124 /79 , Respiratory Rate 18 , O2 SAT 94 , Room Air, O2 Flow Rate 2.0 . Vital Sign Comment: [STABLE, AFEBRILE] Latest Nur Fall Score: 45 Fall Risk: High Risk Safety Measures: Call light Within Reach, Bed Alarm Zone 1, Side Rails Side Rails x2, Bed position Low and Locked. Fall Precautions: Yellow Socks Yellow Gown Door Sign Patient Fall Education Report given to [HUA MUNOZ].
--- NOTE | 2020-09-12 08:53 | Cardiology Report ---
APPROVED REPORT EXAM: Two-dimensional and M-mode echocardiogram with Doppler and color Doppler. INDICATION Atrial Fibrillation M-Mode DIMENSIONS IVSd0.8 (0.7-1.1cm)Left Atrium (MM)4.5 (1.6-4.0cm) LVDd5.2 (3.5-5.6cm)Aortic Root2.8 (2.0-3.7cm) PWd0.8 (0.7-1.1cm)Aortic Cusp Exc.1.7 (1.5-2.0cm) IVSs1.3 cmEPSS0.6 (>1.0cm) LVDs3.5 (2.5-4.0cm) PWs1.8 cm <Conclusion> Normal left ventricular chamber size, systolic function and wall motion. Left ventricular ejection fraction estimated to be 60 %. No evidence of left ventricular hypertrophy. Small circumferential pericardial effusion. Possible large pleural effusion. Mild left atrial enlargement. Right ventricular chamber size is within normal limits. Right atrial size is in upper normal limits. Focal aortic valve sclerosis with adequate cusp excursion. Thickened mitral valve leaflets with normal excursion. Mitral annulus and aortic root calcification. Pulmonic valve not well visualized. Normal tricuspid valve structure. IVC at normal size and collapsing with respiration. A color flow and spectral Doppler study was performed and revealed: Mild aortic regurgitation. Moderate mitral regurgitation. Mitral inflow indicate normal left ventricular diastolic function. Mild to moderate tricuspid regurgitation. Tricuspid systolic velocities suggests peak right ventricular systolic pressure of 49 mmHg, consistent with moderate pulmonary hypertension. Mild pulmonic regurgitation present.
[2020-09-12] MEDS: Diclofenac 1% Gel 100gm TOPIC SCH ×4 (09:18→21:00)
[2020-09-12] MEDS: Flonase Nasal Inhaler 16gm NASAL SCH ×2 (09:18→17:40)
[2020-09-12] MEDS: Sucralfate 1gm tab ORAL SCH ×4 (09:18→21:00)
[2020-09-12] MEDS: Losartan 50mg tab ORAL SCH (09:19)
[2020-09-12] MEDS: Simethicone 80mg tab ORAL SCH ×3 (09:19→17:40)
[2020-09-12] MEDS: Pantoprazole Inj IVP SCH ×2 (09:19→20:59)
--- NOTE | 2020-09-12 09:47 | General Progress Note ---
Subjective ROS Limited/Unobtainable: No Allergies: Coded Allergies: No Known Allergies (Unverified , 12/27/15) Subjective still c/o abd pain Objective Last 24 Hour Vital Signs Date Time Temp Pulse Resp B/P (MAP) Pulse Ox O2 Delivery O2 Flow Rate FiO2 09/12/20 09:19 78 126/68 09/12/20 09:19 126/68 09/12/20 09:19 78 126/68 09/12/20 08:00 98.1 78 19 126/68 (87) 94 09/12/20 07:17 94 Room Air 21 09/12/20 07:15 89 18 94 Room Air 21 09/12/20 06:54 124/79 09/12/20 05:58 68 20 99 Room Air 21 09/12/20 05:48 74 20 96 Room Air 21 09/12/20 04:00 98.0 74 18 110/71 (84) 94 09/12/20 00:00 97.9 72 18 122/53 (76) 95 09/11/20 22:16 149/75 09/11/20 21:23 64 20 99 Room Air 21 09/11/20 21:10 63 22 94 Room Air 21 09/11/20 21:00 Room Air 09/11/20 20:00 98.1 67 20 146/74 (98) 94 09/11/20 19:40 97 Room Air 21 09/11/20 19:40 79 18 97 Room Air 21 09/11/20 17:16 78 126/67 09/11/20 16:00 97.8 78 18 126/67 (86) 94 09/11/20 14:29 124/64 09/11/20 13:29 98.0 09/11/20 12:07 96 Room Air 21 09/11/20 12:00 98.0 80 18 124/64 (84) 94 Intake and Output 09/11/20 09/12/20 19:00 07:00 Intake Total 450 ml Balance 450 ml Intake Oral 450 ml # Voids 4 4 # Bowel Movements 1 Laboratory Tests 09/11/20 17:53: Stool Occult Blood Negative 09/12/20 04:40: White Blood Count 5.2, Red Blood Count 3.74L, Hemoglobin 11.1L, Hematocrit 33.0L , Mean Corpuscular Volume 88, Mean Corpuscular Hemoglobin 29.8, Mean Corpuscular Hemoglobin Concent 33.7, Red Cell Distribution Width 12.5, Platelet Count 230, Mean Platelet Volume 5.2L, Neutrophils (%) (Auto) 50.7, Lymphocytes (%) (Auto) 25.9, Monocytes (%) (Auto) 11.4H, Eosinophils (%) (Auto) 9.3H, Basophils (%) (Auto) 2.6H, Sodium Level 140, Potassium Level 3.4L, Chloride Level 105, Carbon Dioxide Level 27, Anion Gap 8, Blood Urea Nitrogen 12, Creatinine 1.1, Estimat Glomerular Filtration Rate 47.3, Glucose Level 92, Calcium Level 9.2, Magnesium Level 1.5L, Pro-B-Type Natriuretic Peptide 1775H Height (Feet): 5 Height (Inches): 5.00 Weight (Pounds): 157 General Appearance: no apparent distress EENT: normal ENT inspection Neck: supple Cardiovascular: normal rate Respiratory/Chest: decreased breath sounds Abdomen: hypoactive bowel sounds Extremities: non-tender Assessment/Plan Status: stable, progressing Assessment/Plan: Assessment - 2 mo of intermittent post parandial epigastric/chest pain - cholelithiasis / GB sludge - h/o gastritis - mild anemia - OB (+) --> s/p unrevealing EGD/Colon - HTN - hypercholesterolemia Recommendations - monitor labs - Continue BID Protonix - add trial of QID carafate - can consider outpatient capsule endoscopy -cbc in am>>> stable -repeat stool ob>>> neg Mt Mccormack MD Sep 12, 2020 09:47
--- NOTE | 2020-09-12 10:15 | NUR ---
NURSE NOTES: PT AXOX4, CALM, RESTING IN BED. PT STATES HE EPIGASTRIC PAIN IS MINIMAL AT THIS TIME. DENIES N/V. PT EDUCATED TO USE CALL LIGHT FOR ANY ASSISTANCE AND NOT TO AMBULATE BY HERSELF. PT VERBALIZED UNDERSTANDING AND DEMONSTRATED HOW TO USE CALL LIGHT. IN NO APPARENT DISTRESS AT THIS TIME. BED IN LOWEST POSITION WITH BEDSIDE RAILS X2 RAISED. BED ALARM ON ZONE 1. WILL CONTINUE TO MONITOR.
[2020-09-12] MEDS: traMADol 50mg tab ORAL PRN (12:05)
[2020-09-12] MEDS: Hyoscyamine 0.125mg tab ORAL PRN (13:18)
--- NOTE | 2020-09-12 14:37 | Surgery Progress Note ---
Surgery Progress Note Subjective Additional Comments resting comfortable Objective Last 24 Hour Vital Signs Date Time Temp Pulse Resp B/P (MAP) Pulse Ox O2 Delivery O2 Flow Rate FiO2 09/12/20 13:18 140/67 09/12/20 12:00 97.9 76 18 140/67 (91) 93 09/12/20 09:19 78 126/68 09/12/20 09:19 126/68 09/12/20 09:19 78 126/68 09/12/20 09:00 Room Air 09/12/20 08:00 98.1 78 19 126/68 (87) 94 09/12/20 07:17 94 Room Air 21 09/12/20 07:15 89 18 94 Room Air 21 09/12/20 06:54 124/79 09/12/20 05:58 68 20 99 Room Air 21 09/12/20 05:48 74 20 96 Room Air 21 09/12/20 04:00 98.0 74 18 110/71 (84) 94 09/12/20 00:00 97.9 72 18 122/53 (76) 95 09/11/20 22:16 149/75 09/11/20 21:23 64 20 99 Room Air 21 09/11/20 21:10 63 22 94 Room Air 21 09/11/20 21:00 Room Air 09/11/20 20:00 98.1 67 20 146/74 (98) 94 09/11/20 19:40 97 Room Air 21 09/11/20 19:40 79 18 97 Room Air 21 09/11/20 17:16 78 126/67 09/11/20 16:00 97.8 78 18 126/67 (86) 94 I&O Intake and Output 09/11/20 09/12/20 19:00 07:00 Intake Total 450 ml Balance 450 ml Intake Oral 450 ml # Voids 4 4 # Bowel Movements 1 Cardiovascular: RSR Respiratory: clear Abdomen: soft, non-tender, present bowel sounds Extremities: no edema, no tenderness, no cyanosis Laboratory Tests Test 09/11/20 17:53 09/12/20 04:40 Stool Occult Blood Negative (NEGATIVE) White Blood Count 5.2 K/UL (4.8-10.8) Red Blood Count 3.74 M/UL (4.20-5.40) L Hemoglobin 11.1 G/DL (12.0-16.0) L Hematocrit 33.0 % (37.0-47.0) L Mean Corpuscular Volume 88 FL (80-99) Mean Corpuscular Hemoglobin 29.8 PG (27.0-31.0) Mean Corpuscular Hemoglobin Concent 33.7 G/DL (32.0-36.0) Red Cell Distribution Width 12.5 % (11.6-14.8) Platelet Count 230 K/UL (150-450) Mean Platelet Volume 5.2 FL (6.5-10.1) L Neutrophils (%) (Auto) 50.7 % (45.0-75.0) Lymphocytes (%) (Auto) 25.9 % (20.0-45.0) Monocytes (%) (Auto) 11.4 % (1.0-10.0) H Eosinophils (%) (Auto) 9.3 % (0.0-3.0) H Basophils (%) (Auto) 2.6 % (0.0-2.0) H Sodium Level 140 MMOL/L (136-145) Potassium Level 3.4 MMOL/L (3.5-5.1) L Chloride Level 105 MMOL/L (98-107) Carbon Dioxide Level 27 MMOL/L (21-32) Anion Gap 8 mmol/L (5-15) Blood Urea Nitrogen 12 mg/dL (7-18) Creatinine 1.1 MG/DL (0.55-1.30) Estimat Glomerular Filtration Rate 47.3 mL/min (>60) Glucose Level 92 MG/DL (74-106) Calcium Level 9.2 MG/DL (8.5-10.1) Magnesium Level 1.5 MG/DL (1.8-2.4) L Pro-B-Type Natriuretic Peptide 1775 pg/mL (0-125) H Plan Problems: (1) Hyponatremia (2) Pancreatitis Assessment & Plan: Liver measures 15.5 cm in craniocaudal dimension. Echotexture of the liver is slightly heterogeneous, limiting evaluation for focal mass. There is no intrahepatic biliary ductal dilatation. The common bile duct measures 0.3 cm, within normal limits. The gallbladder is markedly distended with internal sludge near the gallbladder neck. No definite stone is appreciated, though the gallbladder neck is not well evaluated. There is no definite wall thickening. There is no sonographic Del Cid's sign. Correlate for recent pain medication administration, which would make sonographic Del Cid sign nondiagnostic. Pancreas is not well evaluated due to shadowing artifact from bowel gas. Right kidney measures 8.5 x 3.9 x 4.2 cm. The right renal parenchyma is not well evaluated due to shadowing artifact from ribs. There is no right renal hydronephrosis. There is cortical scarring of the right kidney at the mid to upper pole region. Left kidney measures 8.2 x 4.5 x 4.4 cm. The left renal parenchyma, is not well evaluated due to shadowing artifact from ribs. There is no left renal hydronephrosis. Probable areas of cortical scarring of the left kidney is noted. Spleen measures 8.2 cm, within normal limits. There is no significant free fluid. Aorta and IVC are not well evaluated due to limitations of the study described above. Aorta measures approximately 2.4 cm in the upper abdomen. IMPRESSION: Evaluation is limited due to body habitus and rib shadowing artifact. Gallbladder is markedly distended with internal sludge near the gallbladder neck. No definite stone is appreciated, though the gallbladder neck is not well evaluated. There is no definite gallbladder wall thickening. There is no sonographic Del Cid's sign. Correlate for recent pain medication administration, which would make sonographic Del Cid sign nondiagnostic. Findings are equivocal for acute cholecystitis. Correlation with HIDA scan is recommended. (3) Abdominal pain Assessment & Plan: 85F abd pain for months. afebrile, HD Stable on admission lipase elevated now normal cramping pain US with sludge and distended GB. no josh elier fluid or inflammation of wall murphys negative HIDA pending - negative IV abx labs and imaging reviewed. no organic finding to correlate with symptoms. no acute surgical intervention planned appreciate GI input okay for trial diet diet as tolerated okay to d/c home from surgical standpoint will follow with recs thank you (4) CHF (congestive heart failure) (5) Chest pain (6) Elevated alkaline phosphatase level (7) Anemia (8) Diarrhea (9) Diverticulosis (10) Pleural effusion Wes Juarez Sep 12, 2020 14:37
[2020-09-12] MEDS: Morphine Sulfate 2mg/ml Inj(IV/IM USE ONLY) IVP PRN (15:53)
--- NOTE | 2020-09-12 16:56 | Cardiology Progress Note ---
Subjective DATE OF SERVICE: Sep 12, 2020 No improvement in abdominal pain and continues requesting IV morphine Episodes of rapid heart rates, frequently with inhaled bronchodilator therapy S/p panendoscopy; biopsies and H.pylori all negative. No CP; troponins negative Lipase level now normal US reveals cholelithiasis and sludge; HIDA scan negative. EKG 09/05/20 revealed atrial fibrillation with adequate rate control. Anticoagulation started and stopped within 24hrs due to bruising and heme positive stool. Low MG++ and K+ noted 2D Echo: significant pulmonary hypertension with mod MR/TR and normal LVEF Objective Last 24 Hour Vital Signs Date Time Temp Pulse Resp B/P (MAP) Pulse Ox O2 Delivery O2 Flow Rate FiO2 09/12/20 16:00 97.8 71 20 111/70 (84) 95 09/12/20 13:18 140/67 09/12/20 12:00 97.9 76 18 140/67 (91) 93 09/12/20 09:19 78 126/68 09/12/20 09:19 126/68 09/12/20 09:19 78 126/68 09/12/20 09:00 Room Air 09/12/20 08:00 98.1 78 19 126/68 (87) 94 09/12/20 07:17 94 Room Air 21 09/12/20 07:15 89 18 94 Room Air 09/12/20 06:54 124/79 09/12/20 05:58 68 20 99 Room Air 21 09/12/20 05:48 74 20 96 Room Air 21 09/12/20 04:00 98.0 74 18 110/71 (84) 94 09/12/20 00:00 97.9 72 18 122/53 (76) 95 09/11/20 22:16 149/75 09/11/20 21:23 64 20 99 Room Air 21 09/11/20 21:10 63 22 94 Room Air 21 09/11/20 21:00 Room Air 09/11/20 20:00 98.1 67 20 146/74 (98) 94 09/11/20 19:40 97 Room Air 21 09/11/20 19:40 79 18 97 Room Air 21 09/11/20 17:16 78 126/67 ROS: unchanged from my evaluation 09/03/20 LUNGS: lungs clear bilaterally CARDIAC: normal rate, normal S1 and S2, irregularly irregular ABDOMEN: normal bowel sounds, soft, tender - mildly in midepigastric area, slightly distended, other - right flank bruising EXTREMITIES: No edema, other - right shoulder bruising posteriorly Laboratory Tests Test 09/11/20 17:53 09/12/20 04:40 Stool Occult Blood Negative (NEGATIVE) White Blood Count 5.2 K/UL (4.8-10.8) Red Blood Count 3.74 M/UL (4.20-5.40) L Hemoglobin 11.1 G/DL (12.0-16.0) L Hematocrit 33.0 % (37.0-47.0) L Mean Corpuscular Volume 88 FL (80-99) Mean Corpuscular Hemoglobin 29.8 PG (27.0-31.0) Mean Corpuscular Hemoglobin Concent 33.7 G/DL (32.0-36.0) Red Cell Distribution Width 12.5 % (11.6-14.8) Platelet Count 230 K/UL (150-450) Mean Platelet Volume 5.2 FL (6.5-10.1) L Neutrophils (%) (Auto) 50.7 % (45.0-75.0) Lymphocytes (%) (Auto) 25.9 % (20.0-45.0) Monocytes (%) (Auto) 11.4 % (1.0-10.0) H Eosinophils (%) (Auto) 9.3 % (0.0-3.0) H Basophils (%) (Auto) 2.6 % (0.0-2.0) H Sodium Level 140 MMOL/L (136-145) Potassium Level 3.4 MMOL/L (3.5-5.1) L Chloride Level 105 MMOL/L (98-107) Carbon Dioxide Level 27 MMOL/L (21-32) Anion Gap 8 mmol/L (5-15) Blood Urea Nitrogen 12 mg/dL (7-18) Creatinine 1.1 MG/DL (0.55-1.30) Estimat Glomerular Filtration Rate 47.3 mL/min (>60) Glucose Level 92 MG/DL (74-106) Calcium Level 9.2 MG/DL (8.5-10.1) Magnesium Level 1.5 MG/DL (1.8-2.4) L Pro-B-Type Natriuretic Peptide 1775 pg/mL (0-125) H Assessment/Plan Assessment/Plan Abdominal Pain - etiology unclear Elevated lipase on admit with distant hx of pancreatitis Non-cardiac chest pain; negative ischemia work up in past. Low range lipid parameters. Paroxysmal atrial fibrillationn with episodes of increased ventricular rates Bruising and heme positive stool while on anticoagulation. Pulmonary hypertension Degenerative valve disease Await UGIs with SBFT Titrate beta dorys for rate control. Holding anticoagulation due to increased risk to benefit ratio at present. Off IVF Taper off IV pain meds Replace K+ and Mg++. Advance antifailure meds Kyle Lopez MD Sep 12, 2020 16:56
--- NOTE | 2020-09-12 17:51 | NUR ---
NURSE NOTES: PT CALLED RN TO ROOM AND STATED SHE WAS FEELING VERY DIZZY. PT WAS IN DISTRESS, MOANING AND REPETITIVELY STATING SHE WAS DIZZY. RN HAD PT LAY IN BED. PT PREFERRED TO BE IN HIGH-[place]'S POSITION. RN ASSESSED PT'S VITAL SIGNS. PT IS STABLE. RN DID TALK THERAPY WITH PT, AND ASKED HER TO DO DEEP BREATHING AND TRY TO RELAX. PT NOW RESTING IN BED AND CALM. PT STATED SHE COULD NOT TKAE HER SCHEDULED 1800 HR MEDS WHEN RN ASKED IF SHE COULD TAKE THEM. BED IN LOWEST POSITION WITH BEDSIDE RAILS X2 RAISED. CALL LIGHT WITHIN REACH. BED ALARM ON ZONE 1.
--- NOTE | 2020-09-12 18:00 | NUR ---
NURSE NOTES: RN LEFT MESSAGE FOR DR ART TO CLARIFY IF HE WANTS TO ADMINISTER ADDITIONAL K-DUR 10MEQ TONIGHT SCHEDULED FOR 2100HRS. DR GALLEGO ORDERED K-DUR 30MEQ X1 WHICH WAS ADMINISTERED. NO CALL BACK.
--- NOTE | 2020-09-12 18:11 | General Progress Note ---
Subjective ROS Limited/Unobtainable: No Constitutional: Reports: malaise, weakness HEENT: Reports: no symptoms Cardiovascular: Reports: no symptoms Respiratory: Reports: no symptoms Gastrointestinal/Abdominal: Reports: abdominal pain Genitourinary: Reports: no symptoms Neurologic/Psychiatric: Reports: no symptoms Endocrine: Reports: no symptoms Hematologic/Lymphatic: Reports: no symptoms Allergies: Coded Allergies: No Known Allergies (Unverified , 12/27/15) All Systems: reviewed and negative except above Subjective continued complaints of abd pain. no fever or chills. no nausea or vomiting. no bleeding. tolerating po. no constipation. Objective Last 24 Hour Vital Signs Date Time Temp Pulse Resp B/P (MAP) Pulse Ox O2 Delivery O2 Flow Rate FiO2 09/12/20 17:40 71 111/70 09/12/20 16:00 97.8 71 20 111/70 (84) 95 09/12/20 13:18 140/67 09/12/20 12:00 97.9 76 18 140/67 (91) 93 09/12/20 09:19 78 126/68 09/12/20 09:19 126/68 09/12/20 09:19 78 126/68 09/12/20 09:00 Room Air 09/12/20 08:00 98.1 78 19 126/68 (87) 94 09/12/20 07:17 94 Room Air 21 09/12/20 07:15 89 18 94 Room Air 21 09/12/20 06:54 124/79 09/12/20 05:58 68 20 99 Room Air 21 09/12/20 05:48 74 20 96 Room Air 21 09/12/20 04:00 98.0 74 18 110/71 (84) 94 09/12/20 00:00 97.9 72 18 122/53 (76) 95 09/11/20 22:16 149/75 09/11/20 21:23 64 20 99 Room Air 21 09/11/20 21:10 63 22 94 Room Air 21 09/11/20 21:00 Room Air 09/11/20 20:00 98.1 67 20 146/74 (98) 94 09/11/20 19:40 97 Room Air 21 09/11/20 19:40 79 18 97 Room Air 21 Intake and Output0 09/11/20 09/12/20 19:00 07:00 Intake Total 450 ml Balance 450 ml Intake Oral 450 ml # Voids 4 4 # Bowel Movements 1 Laboratory Tests 09/12/20 04:40: White Blood Count 5.2, Red Blood Count 3.74L, Hemoglobin 11.1L, Hematocrit 33.0L , Mean Corpuscular Volume 88, Mean Corpuscular Hemoglobin 29.8, Mean Corpuscular Hemoglobin Concent 33.7, Red Cell Distribution Width 12.5, Platelet Count 230, Mean Platelet Volume 5.2L, Neutrophils (%) (Auto) 50.7, Lymphocytes (%) (Auto) 25.9, Monocytes (%) (Auto) 11.4H, Eosinophils (%) (Auto) 9.3H, Basophils (%) (Auto) 2.6H, Sodium Level 140, Potassium Level 3.4L, Chloride Level 105, Carbon Dioxide Level 27, Anion Gap 8, Blood Urea Nitrogen 12, Creatinine 1.1, Estimat Glomerular Filtration Rate 47.3, Glucose Level 92, Calcium Level 9.2, Magnesium Level 1.5L, Pro-B-Type Natriuretic Peptide 1775H Height (Feet): 5 Height (Inches): 5.00 Weight (Pounds): 157 Objective General Appearance: WD/WN, no apparent distress, alert EENT: PERRL/EOMI Neck: non-tender, normal alignment, supple Cardiovascular: normal rate, regular rhythm Respiratory/Chest: chest wall non-tender, lungs clear, normal breath sounds, no respiratory distress Abdomen: normal bowel sounds, non tender, soft, no organomegaly, no mass Edema: no edema noted Arm (L), no edema noted Arm (R) Edema: trace edema 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, no motor/sensory deficits, alert, oriented x 3, responsive Assessment/Plan Problem List: (1) Chest pain ICD Codes: R07.9 - Chest pain, unspecified SNOMED: 19626134 (2) Abdominal pain ICD Codes: R10.9 - Unspecified abdominal pain SNOMED: 32574897 Qualifiers: Qualified Codes: R10.13 - Epigastric pain (3) Hyponatremia ICD Codes: E87.1 - Hypo-osmolality and hyponatremia SNOMED: 54698988 (4) CHF (congestive heart failure) ICD Codes: I50.9 - Heart failure, unspecified SNOMED: 89633863 (5) Elevated alkaline phosphatase level ICD Codes: R74.8 - Abnormal levels of other serum enzymes SNOMED: 678712705 Status: stable, progressing Assessment/Plan: cont current rx iv Morphine for pain control PPI UGI with SBFT simethicone monitor for bleeding bowel regime Eliud Demarco MD Sep 12, 2020 18:11
--- NOTE | 2020-09-12 19:30 | NUR ---
NURSE NOTES: Received pt and report from Bony Garcia RN. pt alert and oriented x 4 with no acute s/s of distress and no co pain. IV site noted clean dry and intact and running KVO. Plan of care discussed.
--- NOTE | 2020-09-12 19:45 | NUR ---
NURSE NOTES: Patient has K-Dur 20 mEq due at 2100. Doctor John notified that patient recently took 30 mEq dose at 1634 and I wanted to verify if he still wanted me to give the one time dose at 2100. Will follow up when he calls back.
--- NOTE | 2020-09-12 19:51 | NUR ---
NURSE HAND-OFF: Important Events on Shift: NEW IV ACCESS. UPPER GI SERIES SCHEDULED FOR TOMORROW 0700HRS. Patient Status: STABLE Diet: CARDIAC Pending Orders: N/A Pending Results/Labs:N/A Pending MD notification:N/A Latest Vital Signs: Temperature 97.8 , Pulse 72 , B/P 111 /70 , Respiratory Rate 18 , O2 SAT 96 , Room Air, O2 Flow Rate 2.0 . Vital Sign Comment: STABLE Latest Nur Fall Score: 45 Fall Risk: High Risk Safety Measures: Call light Within Reach, Bed Alarm Zone 1, Side Rails Side Rails x2, Bed position Low and Locked. Fall Precautions: Yellow Socks Yellow Gown Door Sign Patient Fall Education Report given to Jenn JACOBS RN. Addendum: 09/12/20 at 1954 by ALEXANDER MALDONADO RN RN NO CALL BACK FROM DR ART REGARDING CLARIFICATION OF ADDITIONAL K-DUR 10MEQ ORDER. ENDORSED TO Jenn JACOBS RN.
--- NOTE | 2020-09-12 21:45 | NUR ---
NURSE NOTES: Dr. Lopez called back and gave the ok to give 20 mEq dose of K-Dur. Will administer now.
[2020-09-13] VITALS: BP 124/62
--- NOTE | 2020-09-13 01:00 | NUR ---
NURSE NOTES: pt got up to use beside commode for 2nd time today with minimal assist. tolerated well. midnight vital signs stable. no s/s of acute distress, no co pain.
[2020-09-13 04:00] VITALS: BP 128/65
[2020-09-13] MEDS: HydrALAZINE 50mg tab ORAL SCH ×3 (05:28→21:30)
--- NOTE | 2020-09-13 07:06 | General Progress Note ---
Subjective ROS Limited/Unobtainable: No Constitutional: Reports: malaise, weakness HEENT: Reports: no symptoms Cardiovascular: Reports: no symptoms Respiratory: Reports: no symptoms Gastrointestinal/Abdominal: Reports: abdominal pain, poor appetite Genitourinary: Reports: no symptoms Neurologic/Psychiatric: Reports: no symptoms Endocrine: Reports: no symptoms Hematologic/Lymphatic: Reports: no symptoms Allergies: Coded Allergies: No Known Allergies (Unverified , 12/27/15) All Systems: reviewed and negative except above Subjective decreased abd pain. did not require pain meds last night. last iv morphine yesterday late afternoon. UGI with SBFT pending for today Objective Last 24 Hour Vital Signs Date Time Temp Pulse Resp B/P (MAP) Pulse Ox O2 Delivery O2 Flow Rate FiO2 09/13/20 05:28 128/65 09/13/20 04:00 97.9 71 14 128/65 (86) 94 09/13/20 00:00 98.0 77 15 124/62 (82) 94 09/12/20 21:23 139/60 09/12/20 21:00 Room Air 09/12/20 20:00 97.5 74 16 139/60 (86) 94 09/12/20 19:38 72 18 96 Room Air 21 09/12/20 19:38 96 Room Air 21 09/12/20 17:40 71 111/70 09/12/20 17:40 98.2 80 18 127/63 (84) 96 09/12/20 16:00 97.8 71 20 111/70 (84) 95 09/12/20 13:18 140/67 09/12/20 12:00 97.9 76 18 140/67 (91) 93 09/12/20 09:19 78 126/68 09/12/20 09:19 126/68 09/12/20 09:19 78 126/68 09/12/20 09:00 Room Air 09/12/20 08:00 98.1 78 19 126/68 (87) 94 09/12/20 07:17 94 Room Air 21 09/12/20 07:15 89 18 94 Room Air 21 Intake and Output 09/12/20 09/13/20 19:00 07:00 Intake Total 800 ml 350 ml Balance 800 ml 350 ml Intake Oral 800 ml 350 ml # Voids 4 3 # Bowel Movements 1 Height (Feet): 5 Height (Inches): 5.00 Weight (Pounds): 157 Objective General Appearance: WD/WN, no apparent distress, alert EENT: PERRL/EOMI Neck: non-tender, normal alignment, supple Cardiovascular: normal rate, regular rhythm Respiratory/Chest: chest wall non-tender, lungs clear, normal breath sounds, no respiratory distress Abdomen: normal bowel sounds, non tender, soft, no organomegaly, no mass Edema: no edema noted Arm (L), no edema noted Arm (R) Edema: trace edema 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, no motor/sensory deficits, alert, oriented x 3, responsive Assessment/Plan Problem List: (1) Chest pain ICD Codes: R07.9 - Chest pain, unspecified SNOMED: 55934361 (2) Abdominal pain ICD Codes: R10.9 - Unspecified abdominal pain SNOMED: 87642763 Qualifiers: Qualified Codes: R10.13 - Epigastric pain (3) Hyponatremia ICD Codes: E87.1 - Hypo-osmolality and hyponatremia SNOMED: 16076627 (4) CHF (congestive heart failure) ICD Codes: I50.9 - Heart failure, unspecified SNOMED: 83638563 (5) Elevated alkaline phosphatase level ICD Codes: R74.8 - Abnormal levels of other serum enzymes SNOMED: 556748861 Status: stable, progressing Assessment/Plan: cont current rx iv Morphine for pain control PPI UGI with SBFT today simethicone monitor for bleeding bowel regime possible dc later tday pending UGI results and pts clinical course Eliud Demarco MD Sep 13, 2020 07:06
--- NOTE | 2020-09-13 07:45 | NUR ---
NURSE NOTES: Dr. Ayon said not to feed patient breakfast before the procedure. NPO sign placed on door. will resume cardiac diet after procedure.
--- NOTE | 2020-09-13 07:47 | NUR ---
NURSE HAND-OFF: Important Events on Shift:NA Patient Status: stable Diet: cardiac, but NPO this morning before procedure per Dr. Ayon Pending Orders: NA Pending Results/Labs:NA Pending MD notification:NA Latest Vital Signs: Temperature 97.9 , Pulse 71 , B/P 128 /65 , Respiratory Rate 14 , O2 SAT 94 , Room Air, O2 Flow Rate 2.0 . Vital Sign Comment: stable through the shift Latest Nur Fall Score: 45 Fall Risk: High Risk Safety Measures: Call light Within Reach, Bed Alarm Zone 1, Side Rails Side Rails x2, Bed position Low and Locked. Fall Precautions: Yellow Socks Yellow Gown Door Sign Patient Fall Education Report given to HUA Whitaker.
[2020-09-13 08:00] VITALS: BP 138/71
--- NOTE | 2020-09-13 08:17 | NUR ---
NURSE NOTES: Received report from Issa RN, pt sleeping in bed with no signs of distress or other issues at this time. right FA gauge#[id number] heplco. call light within reach, bed in lowest position, side rales up x2. I will f/u as needed. plan: for Upper GI bowel series.
[2020-09-13] MEDS: Pantoprazole Inj IVP SCH ×2 (08:55→20:06)
[2020-09-13] MEDS: Sucralfate 1gm tab ORAL SCH ×4 (08:56→20:05)
[2020-09-13] MEDS: Simethicone 80mg tab ORAL SCH ×3 (08:56→17:19)
[2020-09-13] MEDS: Losartan 50mg tab ORAL SCH (08:56)
[2020-09-13] MEDS: Diclofenac 1% Gel 100gm TOPIC SCH ×4 (08:57→20:07)
[2020-09-13] MEDS: Flonase Nasal Inhaler 16gm NASAL SCH ×2 (08:57→17:19)
[2020-09-13 12:00] VITALS: BP 136/67
--- NOTE | 2020-09-13 12:10 | Diagnostic Imaging Report ---
EXAM: Upper GI w Small Bowel CLINICAL HISTORY: Abdominal pain and distention. COMPARISON: None FINDINGS: A limited single contrast upper GI was performed followed by a small bowel follow-through. This study consistent of overhead images only. Fluoroscopy was not utilized. The esophagus is only imaged from the mid to distal segment. Tertiary contractions demonstrated. No distinct fixed mucosal abnormality demonstrated. A hiatal hernia noted. Normal emptying of contrast into the stomach is noted. Stomach is only partially distended with contrast. No gross definable filling defect identified on this single contrast exam. The pyloric region appears unremarkable. Duodenal bulb and sweep appear normal. Ligament of Treitz is in the normal location. Small bowel loops are normal in caliber. No distinct mucosal abnormality demonstrated to the extent visualized. There is no marrow edema or separation of loops. Contrast reached the colon by 45 minutes. No sign of distention or obstruction. IMPRESSION: LIMITED UPPER GI SHOWS TERTIARY CONTRACTIONS OF THE ESOPHAGUS AND A SMALL HIATAL HERNIA. MUCOSAL EVALUATION OF THE ESOPHAGUS AND STOMACH IS LIMITED ON THIS SINGLE CONTRAST EXAM. NORMAL TRANSIT OF CONTRAST THROUGH THE SMALL BOWEL. NO DEFINABLE MUCOSAL ABNORMALITY. NO SIGN OF DISTENTION OR OBSTRUCTION.
--- NOTE | 2020-09-13 13:09 | Surgery Progress Note ---
Surgery Progress Note Subjective Additional Comments upper GI noted less pain no n/v Objective Last 24 Hour Vital Signs Date Time Temp Pulse Resp B/P (MAP) Pulse Ox O2 Delivery O2 Flow Rate FiO2 09/13/20 09:00 Room Air 09/13/20 08:56 88 138/71 09/13/20 08:56 138/71 09/13/20 08:56 88 138/71 09/13/20 08:00 97.5 88 14 138/71 (93) 94 09/13/20 05:28 128/65 09/13/20 04:00 97.9 71 14 128/65 (86) 94 09/13/20 00:00 98.0 77 15 124/62 (82) 94 09/12/20 21:23 139/60 09/12/20 21:00 Room Air 09/12/20 20:00 97.5 74 16 139/60 (86) 94 09/12/20 19:38 72 18 96 Room Air 21 09/12/20 19:38 96 Room Air 21 09/12/20 17:40 71 111/70 09/12/20 17:40 98.2 80 18 127/63 (84) 96 09/12/20 16:00 97.8 71 20 111/70 (84) 95 09/12/20 13:18 140/67 I&O Intake and Output 09/12/20 09/13/20 19:00 07:00 Intake Total 800 ml 350 ml Balance 800 ml 350 ml Intake Oral 800 ml 350 ml # Voids 4 3 # Bowel Movements 1 Cardiovascular: RSR Respiratory: clear Abdomen: soft, non-tender, present bowel sounds Extremities: no edema, no tenderness, no cyanosis Plan Problems: (1) Hyponatremia (2) Pancreatitis Assessment & Plan: Liver measures 15.5 cm in craniocaudal dimension. Echotexture of the liver is slightly heterogeneous, limiting evaluation for focal mass. There is no intrahepatic biliary ductal dilatation. The common bile duct measures 0.3 cm, within normal limits. The gallbladder is markedly distended with internal sludge near the gallbladder neck. No definite stone is appreciated, though the gallbladder neck is not well evaluated. There is no definite wall thickening. There is no sonographic Del Cid's sign. Correlate for recent pain medication administration, which would make sonographic Del Cid sign nondiagnostic. Pancreas is not well evaluated due to shadowing artifact from bowel gas. Right kidney measures 8.5 x 3.9 x 4.2 cm. The right renal parenchyma is not well evaluated due to shadowing artifact from ribs. There is no right renal hydronephrosis. There is cortical scarring of the right kidney at the mid to upper pole region. Left kidney measures 8.2 x 4.5 x 4.4 cm. The left renal parenchyma, is not well evaluated due to shadowing artifact from ribs. There is no left renal hydronephrosis. Probable areas of cortical scarring of the left kidney is noted. Spleen measures 8.2 cm, within normal limits. There is no significant free fluid. Aorta and IVC are not well evaluated due to limitations of the study described above. Aorta measures approximately 2.4 cm in the upper abdomen. IMPRESSION: Evaluation is limited due to body habitus and rib shadowing artifact. Gallbladder is markedly distended with internal sludge near the gallbladder neck. No definite stone is appreciated, though the gallbladder neck is not well evaluated. There is no definite gallbladder wall thickening. There is no sonographic Del Cid's sign. Correlate for recent pain medication administration, which would make sonographic Del Cid sign nondiagnostic. Findings are equivocal for acute cholecystitis. Correlation with HIDA scan is recommended. (3) Abdominal pain Assessment & Plan: 85F abd pain for months. afebrile, HD Stable on admission lipase elevated now normal cramping pain US with sludge and distended GB. no josh elier fluid or inflammation of wall murphys negative HIDA pending - negative IV abx labs and imaging reviewed. no organic finding to correlate with symptoms. no acute surgical intervention planned appreciate GI input okay for trial diet diet as tolerated okay to d/c home from surgical standpoint will follow with recs thank you A limited single contrast upper GI was performed followed by a small bowel follow-through. This study consistent of overhead images only. Fluoroscopy was not utilized. The esophagus is only imaged from the mid to distal segment. Tertiary contractions demonstrated. No distinct fixed mucosal abnormality demonstrated. A hiatal hernia noted. Normal emptying of contrast into the stomach is noted. Stomach is only partially distended with contrast. No gross definable filling defect identified on this single contrast exam. The pyloric region appears unremarkable. Duodenal bulb and sweep appear normal. Ligament of Treitz is in the normal location. Small bowel loops are normal in caliber. No distinct mucosal abnormality demonstrated to the extent visualized. There is no marrow edema or separation of loops. Contrast reached the colon by 45 minutes. No sign of distention or obstruction. IMPRESSION: LIMITED UPPER GI SHOWS TERTIARY CONTRACTIONS OF THE ESOPHAGUS AND A SMALL HIATAL HERNIA. MUCOSAL EVALUATION OF THE ESOPHAGUS AND STOMACH IS LIMITED ON THIS SINGLE CONTRAST EXAM. NORMAL TRANSIT OF CONTRAST THROUGH THE SMALL BOWEL. NO DEFINABLE MUCOSAL ABNORMALITY. NO SIGN OF DISTENTION OR OBSTRUCTION. (4) CHF (congestive heart failure) (5) Chest pain (6) Elevated alkaline phosphatase level (7) Anemia (8) Diarrhea (9) Diverticulosis (10) Pleural effusion Wes Juarez Sep 13, 2020 13:09
--- NOTE | 2020-09-13 14:45 | NUR ---
DISCHARGE PLANNING DISCHARGE HOME WITH ORAL ANTIBIOTICS IS HIGHLY RECOMMENDED AT THIS TIME Addendum: 09/13/20 at 1446 by MARLYN VARGAS LVN LVN CLEARED BY SURGERY FOR DISCHARGE
--- NOTE | 2020-09-13 14:50 | NUR ---
CASE MANAGEMENT:REVIEW 09/13/20 SI: PERSISTENT ABDOMINAL PAIN IS: UGI BOWEL SERIES : FROM HOME ~ REFUSING SNF PLAN: DISCHARGE POST PROCEDURE
[2020-09-13 16:00] VITALS: BP 155/70
--- NOTE | 2020-09-13 19:31 | NUR ---
NURSE NOTES: Received patient awake in bed, no s/s of acute distress, able to make needs known. No s/s of acute distress. IV access patent, asymptomatic. Bed low and locked, BSC noted, patient wearing non slip socks.
--- NOTE | 2020-09-13 19:36 | NUR ---
NURSE HAND-OFF: Important Events on Shift: Patient Status: stable condition/ full code Diet: Cardiac diet Pending Orders: am labs Pending Results/Labs: am labs Pending MD notification:[] Latest Vital Signs: Temperature 97.6 , Pulse 70 , B/P 155 /70 , Respiratory Rate 16 , O2 SAT 96 , Room Air, O2 Flow Rate 2.0 . Vital Sign Comment: stable Latest Nur Fall Score: 45 Fall Risk: High Risk Safety Measures: Call light Within Reach, Bed Alarm Zone 1, Side Rails Side Rails x2, Bed position Low and Locked. Fall Precautions: needs assist in ambulation Yellow Socks Yellow Gown Door Sign Patient Fall Education Report given to Louisa SEQUEIRA, pt in stable condition. - today: GI upper and lower series done.
[2020-09-13 20:00] VITALS: BP 114/56
[2020-09-14] VITALS: BP 127/77
--- NOTE | 2020-09-14 00:22 | Psych Consult Progress Note ---
Psychiatry Progress Note Psychiatry Progress Note Subjective sleeping better no behavioral issues pleasant depressed Medications Current Medications Medications (Trade) Dose Ordered Sig/Nisha Route PRN Reason Start Time Stop Time Status Last Admin Dose Admin Acetaminophen (Tylenol) 500 mg TIDPRN PRN ORAL pain 1-3, T>100.5F, headache 09/03/20 15:15 10/03/20 15:14 09/11/20 06:26 Amlodipine Besylate (Norvasc) 5 mg DAILY ORAL 09/03/20 16:00 10/03/20 15:59 09/13/20 08:56 Dextrose/ Electrolytes 1,000 ml @ 50 mls/hr Q20H IV 09/13/20 08:30 10/13/20 08:29 09/13/20 08:58 Diclofenac Sodium (Voltaren gel) 1 applic QID TOPIC 09/05/20 13:00 12/04/20 12:59 09/13/20 20:07 Fluticasone Propionate (Flonase) 1 spray TWICE A DAY NASAL 09/03/20 18:00 10/03/20 17:59 09/13/20 17:19 Hydralazine HCl (Apresoline) 50 mg Q8HR ORAL 09/03/20 16:00 12/02/20 15:59 09/13/20 21:30 Hyoscyamine Sulfate (Levsin) 0.125 mg Q4H PRN ORAL Abdominal cramps 09/03/20 22:45 10/03/20 22:44 09/12/20 13:18 Ipratropium Braymer (Atrovent) 500 mcg Q4H PRN HHN Shortness of Breath 09/10/20 13:30 09/15/20 13:29 09/12/20 05:48 Losartan Potassium (Cozaar) 100 mg DAILY ORAL 09/03/20 16:00 10/03/20 15:59 09/13/20 08:56 Metoprolol Tartrate (Lopressor) 25 mg BID ORAL 09/10/20 09:00 12/09/20 08:59 09/13/20 17:18 Mirtazapine (Remeron) 15 mg BEDTIME ORAL 09/08/20 21:00 12/07/20 20:59 09/13/20 20:06 Morphine Sulfate (Morphine Sulfate) 1 mg Q6H PRN IVP For severe Pain 09/10/20 13:15 09/17/20 13:14 09/12/20 15:53 Pantoprazole (Protonix) 40 mg EVERY 12 HOURS IVP 09/03/20 23:00 10/03/20 22:59 09/13/20 20:06 Polyethylene Glycol (Miralax) 17 gm HSPRN PRN ORAL Constipation 09/03/20 15:15 10/03/20 15:14 09/11/20 20:40 Simethicone (Mylicon) 80 mg TID ORAL 09/09/20 20:30 12/08/20 20:29 09/13/20 17:19 Sucralfate (Carafate) 1 gm FOUR TIMES A DAY ORAL 09/10/20 18:00 12/09/20 17:59 09/13/20 20:05 Tramadol HCl (Ultram) 50 mg Q6H PRN ORAL Moderate Pain (Pain Scale 4-6) 09/10/20 13:30 09/17/20 13:29 09/12/20 12:05 Neurological/Psychiatric: Reports: no symptoms Allergies: Coded Allergies: No Known Allergies (Unverified , 12/27/15) Objective Data Height (Feet): 5 Height (Inches): 5.00 Weight (Pounds): 157 General Appearance: no apparent distress Additional Comments: alert and oriented times self, place, and situation. Pleasant, Serbian speaking. Mood is anxious. Affect is blunted, congruent with mood. Thought process linear. Thought content, no suicidal or homicidal ideation. Cognition is intact. Insight and judgment is fair. Assessment/Plan [place] I: Status: stable, progressing Assessment/Plan: ASSESSMENT: [place] I Anxiety disorder. [place] II Deferred. [place] III Hypertension. [place] IV Low. [place] V 25. Status: stable, progressing Status Narrative Status: stable, progressing Assessment/Plan: ASSESSMENT: [place] I Anxiety disorder. [place] II Deferred. [place] III Hypertension. [place] IV Low. [place] V 25. Assessment/Plan: Status: stable, progressing Assessment/Plan: ASSESSMENT: [place] I Anxiety disorder. [place] II Deferred. [place] III Hypertension. [place] IV Low. [place] V 25. Saroj Kent MD Sep 14, 2020 00:22
--- NOTE | 2020-09-14 00:22 | Cardiology Progress Note ---
Subjective DATE OF SERVICE: Sep 13, 2020 Now with mprovement of abdominal pain; no morphine req'd today. Episodes of rapid heart rates, frequently with inhaled bronchodilator therapy S/p panendoscopy; biopsies and H.pylori all negative. No CP; troponins negative Lipase level now normal US reveals cholelithiasis and sludge; HIDA scan negative. EKG 09/05/20 revealed atrial fibrillation with adequate rate control. Anticoagulation started and stopped within 24hrs due to bruising and heme positive stool. Low MG++ and K+ noted and replaced 09/12. 2D Echo: significant pulmonary hypertension with mod MR/TR and normal LVEF UGISeries: HH, tertiary esophageal contractions Objective Last 24 Hour Vital Signs Date Time Temp Pulse Resp B/P (MAP) Pulse Ox O2 Delivery O2 Flow Rate FiO2 09/13/20 21:30 114/56 09/13/20 21:06 Room Air 09/13/20 20:00 97.0 68 17 114/56 (75) 96 09/13/20 19:42 96 Room Air 21 09/13/20 19:42 67 20 96 Room Air 21 09/13/20 17:18 70 155/70 09/13/20 16:00 97.6 70 16 155/70 (98) 96 09/13/20 13:08 138/71 09/13/20 12:00 97.1 69 16 136/67 (90) 98 09/13/20 09:00 Room Air 09/13/20 08:56 88 138/71 09/13/20 08:56 138/71 09/13/20 08:56 88 138/71 09/13/20 08:00 97.5 88 14 138/71 (93) 94 09/13/20 07:30 86 18 94 Room Air 21 09/13/20 07:30 94 Room Air 21 09/13/20 05:28 128/65 09/13/20 04:00 97.9 71 14 128/65 (86) 94 ROS: unchanged from my evaluation 09/03/20 LUNGS: lungs clear bilaterally CARDIAC: normal rate, normal S1 and S2, irregularly irregular ABDOMEN: normal bowel sounds, soft, tender - mildly in midepigastric area, slightly distended, other - right flank bruising EXTREMITIES: No edema, other - right shoulder bruising posteriorly Assessment/Plan Assessment/Plan Abdominal Pain - etiology unclear, but improved. Elevated lipase on admit with distant hx of pancreatitis Non-cardiac chest pain; negative ischemia work up in past. Low range lipid parameters. Paroxysmal atrial fibrillationn with episodes of increased ventricular rates Bruising and heme positive stool while on anticoagulation. Pulmonary hypertension Degenerative valve disease GI follow up regarding significance of UGI findings Titrate beta dorys for rate control. Holding anticoagulation due to increased risk to benefit ratio at present. Off IVF Taper off IV pain meds Replace K+ and Mg++. Advance antifailure meds Kyle Lopez MD Sep 14, 2020 00:22
[2020-09-14] MEDS: Ipratropium 0.02% Inh Soln 2.5ml UD HHN PRN (00:43)
[2020-09-14] MEDS: HydrALAZINE 50mg tab ORAL SCH ×3 (05:25→21:08)
[2020-09-14 06:33] LABS: BASOPHILS % (AUTO) 1.2 % (0.0-2.0); EOSINOPHILS % (AUTO) 5.8 % (0.0-3.0); HEMATOCRIT 33.1 % (37.0-47.0); HEMOGLOBIN 11.3 G/DL (12.0-16.0); MEAN CORPUSCULAR VOLUME 88 FL (80-99); MONOCYTES % (AUTO) 10.8 % (1.0-10.0); NEUTROPHILS % (AUTO) 55.2 % (45.0-75.0); PLATELET COUNT 261 K/UL (150-450); RED BLOOD COUNT 3.76 M/UL (4.20-5.40); RED CELL DISTRIBUTION WIDTH 12.7 % (11.6-14.8); WHITE BLOOD COUNT 5.1 K/UL (4.8-10.8)
[2020-09-14 06:50] LABS: ALBUMIN 3.1 G/DL (3.4-5.0); ALBUMIN/GLOBULIN RATIO 0.9 (1.0-2.7); BILIRUBIN,TOTAL 0.5 MG/DL (0.2-1.0); CALCIUM 8.9 MG/DL (8.5-10.1); CREATININE 1.2 MG/DL (0.55-1.30); POTASSIUM 3.7 MMOL/L (3.5-5.1)
--- NOTE | 2020-09-14 07:30 | NUR ---
NURSE NOTES: WALKING ROUNDS DONE WITH NIGHT RN. PATIENT AWAKE AT BEDSIDE HAVING BREAKFAST. QUESTIONS ANSWERED, NEEDS MET. STATES SHE HAS MILD ABDOMINAL PAIN; MD AWARE. TOLERATING PO. DISCUSSED PLAN OF CARE FOR THE DAY. ACKNOWLEDGED UNDERSTANDING. BED IN LOW AND LOCKED POSITION. CALL LIGHT WITHIN REACH. WILL CONTINUE TO MONITOR.
--- NOTE | 2020-09-14 07:52 | NUR ---
HAND-OFF: Report given to HUA Tran. Patient sitting up in bed eating breakfast.
[2020-09-14 08:00] VITALS: BP 141/66
--- NOTE | 2020-09-14 09:00 | General Progress Note ---
Subjective ROS Limited/Unobtainable: No Constitutional: Reports: malaise, weakness HEENT: Reports: no symptoms Cardiovascular: Reports: no symptoms Respiratory: Reports: no symptoms Gastrointestinal/Abdominal: Reports: abdominal pain Genitourinary: Reports: no symptoms Neurologic/Psychiatric: Reports: anxiety Endocrine: Reports: no symptoms Hematologic/Lymphatic: Reports: no symptoms Allergies: Coded Allergies: No Known Allergies (Unverified , 12/27/15) All Systems: reviewed and negative except above Subjective the same. upper gi with sbft reviewed. continued complaints of abd pain. not asking for pain meds though. when discussed discharge planning pt became agitated and defensive. "i'm going to come right back to the ER."\\ tolerating po. no fever or chills. remains on ivf. Objective Last 24 Hour Vital Signs Date Time Temp Pulse Resp B/P (MAP) Pulse Ox O2 Delivery O2 Flow Rate FiO2 09/14/20 05:25 127/77 09/14/20 00:44 66 20 99 Room Air 21 78 20 95 09/14/20 00:00 97.3 71 18 127/77 (94) 96 09/13/20 21:30 114/56 09/13/20 21:06 Room Air 09/13/20 20:00 97.0 68 17 114/56 (75) 96 09/13/20 19:42 96 Room Air 21 09/13/20 19:42 67 20 96 Room Air 21 09/13/20 17:18 70 155/70 09/13/20 16:00 97.6 70 16 155/70 (98) 96 09/13/20 13:08 138/71 09/13/20 12:00 97.1 69 16 136/67 (90) 98 09/13/20 09:00 Room Air 09/13/20 08:56 88 138/71 09/13/20 08:56 138/71 09/13/20 08:56 88 138/71 Intake and Output 09/13/20 09/14/20 19:00 07:00 Intake Total 600 ml 250 ml Balance 600 ml 250 ml Intake Oral 600 ml 250 ml # Voids 6 2 # Bowel Movements 4 2 Laboratory Tests 09/14/20 04:50: White Blood Count 5.1, Red Blood Count 3.76L, Hemoglobin 11.3L, Hematocrit 33.1L , Mean Corpuscular Volume 88, Mean Corpuscular Hemoglobin 30.0, Mean Corpuscular Hemoglobin Concent 34.0, Red Cell Distribution Width 12.7, Platelet Count 261, Mean Platelet Volume 5.6L, Neutrophils (%) (Auto) 55.2, Lymphocytes (%) (Auto) 27.0, Monocytes (%) (Auto) 10.8H, Eosinophils (%) (Auto) 5.8H, Basophils (%) (Auto) 1.2, Sodium Level 140, Potassium Level 3.7, Chloride Level 107, Carbon Dioxide Level 28, Anion Gap 5, Blood Urea Nitrogen 18, Creatinine 1.2, Estimat Glomerular Filtration Rate 42.8, Glucose Level 105, Calcium Level 8.9, Magnesium Level 1.8, Total Bilirubin 0.5, Aspartate Amino Transf (AST/SGOT) 32, Alanine Aminotransferase (ALT/SGPT) 21, Alkaline Phosphatase 71, Total Protein 6.6, Al bumin 3.1L, Globulin 3.5, Albumin/Globulin Ratio 0.9L Height (Feet): 5 Height (Inches): 5.00 Weight (Pounds): 157 Objective General Appearance: WD/WN, no apparent distress, alert EENT: PERRL/EOMI Neck: non-tender, normal alignment, supple Cardiovascular: normal rate, regular rhythm Respiratory/Chest: chest wall non-tender, lungs clear, normal breath sounds, no respiratory distress Abdomen: normal bowel sounds, non tender, soft, no organomegaly, no mass Edema: no edema noted Arm (L), no edema noted Arm (R) Edema: trace edema Neurologic: balloon sander II-XII grossly normal, no motor/sensory deficits, alert, oriented x 3, responsive Assessment/Plan Problem List: (1) Chest pain ICD Codes: R07.9 - Chest pain, unspecified SNOMED: 51521497 (2) Abdominal pain ICD Codes: R10.9 - Unspecified abdominal pain SNOMED: 56295534 Qualifiers: Qualified Codes: R10.13 - Epigastric pain (3) Hyponatremia ICD Codes: E87.1 - Hypo-osmolality and hyponatremia SNOMED: 57502950 (4) CHF (congestive heart failure) ICD Codes: I50.9 - Heart failure, unspecified SNOMED: 36535242 (5) Elevated alkaline phosphatase level ICD Codes: R74.8 - Abnormal levels of other serum enzymes SNOMED: 677594735 Status: stable, progressing Assessment/Plan: cont current rx iv Morphine for pain control PPI UGI with SBFT - message left with radiologist to discuss- ?esophageal spasms simethicone monitor for bleeding bowel regime refer to snf- in case pt agrees gi follow up Eliud Demarco MD Sep 14, 2020 09:00
[2020-09-14] MEDS: Diclofenac 1% Gel 100gm TOPIC SCH ×4 (09:25→21:10)
[2020-09-14] MEDS: Simethicone 80mg tab ORAL SCH ×3 (09:26→17:42)
[2020-09-14] MEDS: Sucralfate 1gm tab ORAL SCH ×4 (09:26→21:08)
[2020-09-14] MEDS: Losartan 50mg tab ORAL SCH (09:26)
[2020-09-14] MEDS: Pantoprazole Inj IVP SCH ×2 (09:27→20:06)
[2020-09-14] MEDS: Flonase Nasal Inhaler 16gm NASAL SCH ×2 (09:28→17:42)
--- NOTE | 2020-09-14 09:36 | NUR ---
NURSE NOTES: PATIENT C/O RIGHT MID UPPER ABDOMINAL PAIN UPON PALPATION. NOTED SOB WITH MINIMUM MOVEMENT IN BED. SPO2 96% RA. REVIEWED HER LABS; NOTED BNP 1775 ON 09/12. PATIENT ON IVFS.. PLACED CALL TO DR. GALLEGO OF FINDINGS. NEW ORDERS RECEIVED AND CARRIED OUT. PATIENT INFORMED.
--- NOTE | 2020-09-14 10:34 | NUR ---
NURSE NOTES: EKG DONE AT BEDSIDE. SHOWS ABNORMAL IN COMPARISON TO PREVIOUS EKG. DR GALLEGO NOTIFIED. NO FURTHER INTERVENTIONS AT THIS TIME.
[2020-09-14 12:00] VITALS: BP 130/78
--- NOTE | 2020-09-14 12:03 | Cardiology Report ---
APPROVED REPORT EKG Measurement Heart [id number] CT 156P60 [id number] <Conclusion> Normal sinus rhythm Nonspecific T wave abnormality Abnormal ECG
--- NOTE | 2020-09-14 12:34 | NUR ---
RD ASSESSMENT & RECOMMENDATIONS SEE CARE ACTIVITY FOR COMPLETE ASSESSMENT DAILY ESTIMATED NEEDS: Needs based on Cardiac 53.6kg abw 25-30 kcals/kg 4516-6889 total kcals 1-1.2 g protein/kg 54-64 g total protein 25-30ml/kcal mL/kg 7225-9827 total fluid mLs NUTRITION DIAGNOSIS: Decreased sodium needs r/t cardiac history as evidenced by h/o HTN, CVA, elev BP now (141/66). CURRENT DIET: Cardiac PO DIET RECOMMENDATIONS: LOW NA/ SOFT diet / texture as tolerated ADDITIONAL RECOMMENDATIONS: 1) Obtain a standing weight as able 2) Monitor po intake and tolerance/ s/p EGD, now w/ fair intake 3) Add Ensure Enlive qdaily w/ variable intake
--- NOTE | 2020-09-14 14:02 | Diagnostic Imaging Report ---
Indication: Reason For Exam: SOB Technique: Single AP view of the chest. Comparison: Chest radiograph dated 09/03/2020 Findings: The cardiomediastinal silhouette is unchanged in appearance. Small bilateral pleural effusions with associated streaky airspace opacities. There are patchy left midlung airspace opacities. Mild pulmonary vascular congestion. No pneumothorax. No acute osseous abnormality. IMPRESSION: 1. Small bilateral pleural effusions. 2. Bibasilar airspace opacities and patchy left midlung airspace opacity which could represent atelectasis or pneumonia.
--- NOTE | 2020-09-14 14:09 | NUR ---
NURSE NOTES: LASIX IV X1 ADMINISTERED LASIX 40 IVP X1 DOSE. PATIENT HAS VOIDED MORE THAN 1 LITER OF URINE IN 1.5 HOURS. SOB DECREASED. ABLE TO GET IN AND OUT OF BED TO COMMODE AT EASE. NO S/S SOB WITH MINIMUM ACTIVITY NOTED.
[2020-09-14] MEDS: traMADol 50mg tab ORAL PRN (15:16)
[2020-09-14 16:00] VITALS: BP 143/68
[2020-09-14] MEDS: Hyoscyamine 0.125mg tab ORAL PRN (17:42)
--- NOTE | 2020-09-14 18:04 | NUR ---
NURSE NOTES: AFTER RECEIVING LASIX 40 IVP , PATIENT HAS A TOTAL OF 2,275 URINE OUTPUT. SOB MINIMUM. VSS. EASIER TO PERFORM ADLS.
--- NOTE | 2020-09-14 19:20 | NUR ---
NURSE NOTES: received report from Chelsea SEQUEIRA. Pt. is in bed, awake, alert and oriented. No sob noted. Complained of mild abdominal pain on RUQ, with prn meds given. Bed is in it's lowest position, with alarm on and locked. Awaiting for Dr. Demarco's response for prn meds for n&v. Will continue to monitor.
--- NOTE | 2020-09-14 19:26 | NUR ---
NURSE HAND-OFF: Important Events on Shift:SOB WITH MINIMUM ACTIVITY, LASIX 40 IVP, DIURESED VERY WELL. Patient Status: STABLE Diet: CARDIAC Pending Orders: N/A Pending Results/Labs: N/A Pending MD notification:N/A Latest Vital Signs: Temperature 96.9 , Pulse 71 , B/P 143 /68 , Respiratory Rate 20 , O2 SAT 97 , Room Air . Vital Sign Comment: STABLE Latest Nur Fall Score: 35 Fall Risk: Medium Risk Safety Measures: Call light Within Reach, Bed Alarm Zone 1, Side Rails Side Rails x1, Bed position Low and Locked. Fall Precautions: Door Sign Patient Fall Education Report given to MARCOS ESCOBAR RN.
--- NOTE | 2020-09-14 19:45 | NUR ---
NURSE NOTES: Dr. Demarco called back and gave orders of [place]., taken and carried out.
[2020-09-14 20:00] VITALS: BP 139/69
--- NOTE | 2020-09-14 20:03 | CDS Physician Query ---
Clarification is required for compliance, coding accuracy, and to reflect severity of illness for this patient Dear Dr. 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 Please Clarify: Acuity [ ] Acute [ ] Chronic [ ] Acute on Chronic Type [ ] Systolic [ ] Diastolic [ ] Systolic & Diastolic (Combined) [ ] Other: Present on Admission: [ ] Yes [ ] No [ ] Clinically Undetermined Physician signature Date Please also document in your Progress Notes and/or Discharge Summary and indicate if the condition was present on admission. MTDD
--- NOTE | 2020-09-14 20:22 | General Progress Note ---
Subjective Allergies: Coded Allergies: No Known Allergies (Unverified , 12/27/15) Subjective comfortable at time of my visit although at other times voices abd pain her abd pain comes combined with dyspnea Objective Last 24 Hour Vital Signs Date Time Temp Pulse Resp B/P (MAP) Pulse Ox O2 Delivery O2 Flow Rate FiO2 09/14/20 19:32 95 Room Air 21 09/14/20 19:32 76 20 95 Room Air 21 09/14/20 17:42 71 143/68 09/14/20 16:00 96.9 71 20 143/68 (93) 97 09/14/20 15:46 98.2 09/14/20 15:15 143/68 09/14/20 12:00 98.2 77 20 130/78 (95) 94 09/14/20 09:26 86 141/66 09/14/20 09:26 141/66 09/14/20 09:26 86 141/66 09/14/20 09:00 Room Air 09/14/20 08:00 98.0 86 22 141/66 (91) 96 09/14/20 05:25 127/77 09/14/20 00:44 66 20 99 Room Air 21 78 20 95 09/14/20 00:00 97.3 71 18 127/77 (94) 96 09/13/20 21:30 114/56 09/13/20 21:06 Room Air Intake and Output 09/13/20 09/14/20 19:00 07:00 Intake Total 600 ml 300 ml Balance 600 ml 300 ml Intake Oral 600 ml 250 ml IV Total 50 ml # Voids 6 2 # Bowel Movements 4 2 Laboratory Tests 09/14/20 04:50: White Blood Count 5.1, Red Blood Count 3.76L, Hemoglobin 11.3L, Hematocrit 33.1L , Mean Corpuscular Volume 88, Mean Corpuscular Hemoglobin 30.0, Mean Corpuscular Hemoglobin Concent 34.0, Red Cell Distribution Width 12.7, Platelet Count 261, Mean Platelet Volume 5.6L, Neutrophils (%) (Auto) 55.2, Lymphocytes (%) (Auto) 27.0, Monocytes (%) (Auto) 10.8H, Eosinophils (%) (Auto) 5.8H, Basophils (%) (Auto) 1.2, Sodium Level 140, Potassium Level 3.7, Chloride Level 107, Carbon Dioxide Level 28, Anion Gap 5, Blood Urea Nitrogen 18, Creatinine 1.2, Estimat Glomerular Filtration Rate 42.8, Glucose Level 105, Calcium Level 8.9, Magnesium Level 1.8, Total Bilirubin 0.5, Aspartate Amino Transf (AST/SGOT) 32, Alanine Aminotransferase (ALT/SGPT) 21, Alkaline Phosphatase 71, Troponin I 0.017, Total Protein 6.6, Albumin 3.1L, Globulin 3.5, Albumin/Globulin Ratio 0.9L Height (Feet): 5 Height (Inches): 5.00 Weight (Pounds): 157 Objective WDWN woman NCAT supple CTA RR Abd soft ND NT no edema Assessment/Plan Status: stable, progressing Assessment/Plan: Assessment - intermittent epigastric/chest pain with dyspnea - cholelithiasis / GB sludge - h/o gastritis - mild anemia - OB (+) --> s/p unrevealing EGD/Colon - HTN - hypercholesterolemia Recommendations - monitor labs - Continue BID Protonix - continue QID carafate - begin clears - will try to order capsule endoscopy for ? Teodoro Huertas MD Sep 14, 2020 20:22
--- NOTE | 2020-09-14 23:01 | Surgery Progress Note ---
Surgery Progress Note Subjective Additional Comments no acute events outpt capsule planned Objective Last 24 Hour Vital Signs Date Time Temp Pulse Resp B/P (MAP) Pulse Ox O2 Delivery O2 Flow Rate FiO2 09/14/20 21:08 141/76 09/14/20 21:00 Room Air 09/14/20 20:00 98.2 69 20 139/69 (92) 100 09/14/20 19:32 95 Room Air 21 09/14/20 19:32 76 20 95 Room Air 21 09/14/20 17:42 71 143/68 09/14/20 16:00 96.9 71 20 143/68 (93) 97 09/14/20 15:46 98.2 09/14/20 15:15 143/68 09/14/20 12:00 98.2 77 20 130/78 (95) 94 09/14/20 09:26 86 141/66 09/14/20 09:26 141/66 09/14/20 09:26 86 141/66 09/14/20 09:00 Room Air 09/14/20 08:00 98.0 86 22 141/66 (91) 96 09/14/20 05:25 127/77 09/14/20 00:44 66 20 99 Room Air 21 78 20 95 09/14/20 00:00 97.3 71 18 127/77 (94) 96 I&O Intake and Output 09/13/20 09/14/20 19:00 07:00 Intake Total 600 ml 300 ml Balance 600 ml 300 ml Intake Oral 600 ml 250 ml IV Total 50 ml # Voids 6 2 # Bowel Movements 4 2 Cardiovascular: RSR Respiratory: clear Abdomen: soft, non-tender, present bowel sounds Extremities: no edema, no tenderness, no cyanosis Laboratory Tests Test 09/14/20 04:50 White Blood Count 5.1 K/UL (4.8-10.8) Red Blood Count 3.76 M/UL (4.20-5.40) L Hemoglobin 11.3 G/DL (12.0-16.0) L Hematocrit 33.1 % (37.0-47.0) L Mean Corpuscular Volume 88 FL (80-99) Mean Corpuscular Hemoglobin 30.0 PG (27.0-31.0) Mean Corpuscular Hemoglobin Concent 34.0 G/DL (32.0-36.0) Red Cell Distribution Width 12.7 % (11.6-14.8) Platelet Count 261 K/UL (150-450) Mean Platelet Volume 5.6 FL (6.5-10.1) L Neutrophils (%) (Auto) 55.2 % (45.0-75.0) Lymphocytes (%) (Auto) 27.0 % (20.0-45.0) Monocytes (%) (Auto) 10.8 % (1.0-10.0) H Eosinophils (%) (Auto) 5.8 % (0.0-3.0) H Basophils (%) (Auto) 1.2 % (0.0-2.0) Sodium Level 140 MMOL/L (136-145) Potassium Level 3.7 MMOL/L (3.5-5.1) Chloride Level 107 MMOL/L (98-107) Carbon Dioxide Level 28 MMOL/L (21-32) Anion Gap 5 mmol/L (5-15) Blood Urea Nitrogen 18 mg/dL (7-18) Creatinine 1.2 MG/DL (0.55-1.30) Estimat Glomerular Filtration Rate 42.8 mL/min (>60) Glucose Level 105 MG/DL (74-106) Calcium Level 8.9 MG/DL (8.5-10.1) Magnesium Level 1.8 MG/DL (1.8-2.4) Total Bilirubin 0.5 MG/DL (0.2-1.0) Aspartate Amino Transf (AST/SGOT) 32 U/L (15-37) Alanine Aminotransferase (ALT/SGPT) 21 U/L (12-78) Alkaline Phosphatase 71 U/L (46-116) Troponin I 0.017 ng/mL (0.000-0.056) Total Protein 6.6 G/DL (6.4-8.2) Albumin 3.1 G/DL (3.4-5.0) L Globulin 3.5 g/dL Albumin/Globulin Ratio 0.9 (1.0-2.7) L Plan Problems: (1) Hyponatremia (2) Pancreatitis Assessment & Plan: Liver measures 15.5 cm in craniocaudal dimension. Echotexture of the liver is slightly heterogeneous, limiting evaluation for focal mass. There is no intrahepatic biliary ductal dilatation. The common bile duct measures 0.3 cm, within normal limits. The gallbladder is markedly distended with internal sludge near the gallbladder neck. No definite stone is appreciated, though the gallbladder neck is not well evaluated. There is no definite wall thickening. There is no sonographic Del Cid's sign. Correlate for recent pain medication administration, which would make sonographic Del Cid sign nondiagnostic. Pancreas is not well evaluated due to shadowing artifact from bowel gas. Right kidney measures 8.5 x 3.9 x 4.2 cm. The right renal parenchyma is not well evaluated due to shadowing artifact from ribs. There is no right renal hydronephrosis. There is cortical scarring of the right kidney at the mid to upper pole region. Left kidney measures 8.2 x 4.5 x 4.4 cm. The left renal parenchyma, is not well evaluated due to shadowing artifact from ribs. There is no left renal hydronephrosis. Probable areas of cortical scarring of the left kidney is noted. Spleen measures 8.2 cm, within normal limits. There is no significant free fluid. Aorta and IVC are not well evaluated due to limitations of the study described above. Aorta measures approximately 2.4 cm in the upper abdomen. IMPRESSION: Evaluation is limited due to body habitus and rib shadowing artifact. Gallbladder is markedly distended with internal sludge near the gallbladder neck. No definite stone is appreciated, though the gallbladder neck is not well evaluated. There is no definite gallbladder wall thickening. There is no sonographic Del Cid's sign. Correlate for recent pain medication administration, which would make sonographic Del Cid sign nondiagnostic. Findings are equivocal for acute cholecystitis. Correlation with HIDA scan is recommended. (3) Abdominal pain Assessment & Plan: 85F abd pain for months. afebrile, HD Stable on admission lipase elevated now normal cramping pain US with sludge and distended GB. no josh elier fluid or inflammation of wall murphys negative HIDA pending - negative IV abx labs and imaging reviewed. no organic finding to correlate with symptoms. no acute surgical intervention planned appreciate GI input okay for trial diet diet as tolerated okay to d/c home from surgical standpoint will follow with recs thank you A limited single contrast upper GI was performed followed by a small bowel follow-through. This study consistent of overhead images only. Fluoroscopy was not utilized. The esophagus is only imaged from the mid to distal segment. Tertiary contractions demonstrated. No distinct fixed mucosal abnormality demonstrated. A hiatal hernia noted. Normal emptying of contrast into the stomach is noted. Stomach is only partially distended with contrast. No gross definable filling defect identified on this single contrast exam. The pyloric region appears unremarkable. Duodenal bulb and sweep appear normal. Ligament of Treitz is in the normal location. Small bowel loops are normal in caliber. No distinct mucosal abnormality demonstrated to the extent visualized. There is no marrow edema or separation of loops. Contrast reached the colon by 45 minutes. No sign of distention or obstruction. IMPRESSION: LIMITED UPPER GI SHOWS TERTIARY CONTRACTIONS OF THE ESOPHAGUS AND A SMALL HIATAL HERNIA. MUCOSAL EVALUATION OF THE ESOPHAGUS AND STOMACH IS LIMITED ON THIS SINGLE CONTRAST EXAM. NORMAL TRANSIT OF CONTRAST THROUGH THE SMALL BOWEL. NO DEFINABLE MUCOSAL ABNORMALITY. NO SIGN OF DISTENTION OR OBSTRUCTION. (4) CHF (congestive heart failure) (5) Chest pain (6) Elevated alkaline phosphatase level (7) Anemia (8) Diarrhea (9) Diverticulosis (10) Pleural effusion Wes Juarez Sep 14, 2020 23:00
--- NOTE | 2020-09-14 23:37 | Cardiology Progress Note ---
Subjective DATE OF SERVICE: Sep 14, 2020 Episodes of abdominal pain decreasing. Also has episodes of SOB now. CXR (09/14) suggests min CHF, and new left infiltrate with sm pl effn's S/p panendoscopy; biopsies and H.pylori all negative. No CP; troponins negative Lipase level now normal US reveals cholelithiasis and sludge; HIDA scan negative. EKG 09/05/20 revealed atrial fibrillation with adequate rate control. Anticoagulation started and stopped within 24hrs due to bruising and heme positive stool. Low MG++ and K+ noted and replaced 09/12. 2D Echo: significant pulmonary hypertension with mod MR/TR and normal LVEF UGISeries: HH, tertiary esophageal contractions Objective Last 24 Hour Vital Signs Date Time Temp Pulse Resp B/P (MAP) Pulse Ox O2 Delivery O2 Flow Rate FiO2 09/14/20 21:08 141/76 09/14/20 21:00 Room Air 09/14/20 20:00 98.2 69 20 139/69 (92) 100 09/14/20 19:32 95 Room Air 21 09/14/20 19:32 76 20 95 Room Air 21 09/14/20 17:42 71 143/68 09/14/20 16:00 96.9 71 20 143/68 (93) 97 09/14/20 15:46 98.2 09/14/20 15:15 143/68 09/14/20 12:00 98.2 77 20 130/78 (95) 94 09/14/20 09:26 86 141/66 09/14/20 09:26 141/66 09/14/20 09:26 86 141/66 09/14/20 09:00 Room Air 09/14/20 08:00 98.0 86 22 141/66 (91) 96 09/14/20 05:25 127/77 09/14/20 00:44 66 20 99 Room Air 21 78 20 95 09/14/20 00:00 97.3 71 18 127/77 (94) 96 ROS: unchanged from my evaluation 09/03/20 LUNGS: rales left CARDIAC: normal rate, normal S1 and S2, irregularly irregular ABDOMEN: normal bowel sounds, soft, tender - mildly in midepigastric area, slightly distended, other - right flank bruising EXTREMITIES: No edema, other - right shoulder bruising posteriorly Laboratory Tests Test 09/14/20 04:50 White Blood Count 5.1 K/UL (4.8-10.8) Red Blood Count 3.76 M/UL (4.20-5.40) L Hemoglobin 11.3 G/DL (12.0-16.0) L Hematocrit 33.1 % (37.0-47.0) L Mean Corpuscular Volume 88 FL (80-99) Mean Corpuscular Hemoglobin 30.0 PG (27.0-31.0) Mean Corpuscular Hemoglobin Concent 34.0 G/DL (32.0-36.0) Red Cell Distribution Width 12.7 % (11.6-14.8) Platelet Count 261 K/UL (150-450) Mean Platelet Volume 5.6 FL (6.5-10.1) L Neutrophils (%) (Auto) 55.2 % (45.0-75.0) Lymphocytes (%) (Auto) 27.0 % (20.0-45.0) Monocytes (%) (Auto) 10.8 % (1.0-10.0) H Eosinophils (%) (Auto) 5.8 % (0.0-3.0) H Basophils (%) (Auto) 1.2 % (0.0-2.0) Sodium Level 140 MMOL/L (136-145) Potassium Level 3.7 MMOL/L (3.5-5.1) Chloride Level 107 MMOL/L (98-107) Carbon Dioxide Level 28 MMOL/L (21-32) Anion Gap 5 mmol/L (5-15) Blood Urea Nitrogen 18 mg/dL (7-18) Creatinine 1.2 MG/DL (0.55-1.30) Estimat Glomerular Filtration Rate 42.8 mL/min (>60) Glucose Level 105 MG/DL (74-106) Calcium Level 8.9 MG/DL (8.5-10.1) Magnesium Level 1.8 MG/DL (1.8-2.4) Total Bilirubin 0.5 MG/DL (0.2-1.0) Aspartate Amino Transf (AST/SGOT) 32 U/L (15-37) Alanine Aminotransferase (ALT/SGPT) 21 U/L (12-78) Alkaline Phosphatase 71 U/L (46-116) Troponin I 0.017 ng/mL (0.000-0.056) Total Protein 6.6 G/DL (6.4-8.2) Albumin 3.1 G/DL (3.4-5.0) L Globulin 3.5 g/dL Albumin/Globulin Ratio 0.9 (1.0-2.7) L Assessment/Plan Assessment/Plan Abdominal Pain - etiology unclear, but improved. Ac/chr diastolic CHF New radiographic pneumonia Elevated lipase on admit with distant hx of pancreatitis Non-cardiac chest pain; negative ischemia work up in past. Low range lipid parameters. Paroxysmal atrial fibrillationn with episodes of increased ventricular rates Bruising and heme positive stool while on anticoagulation. Pulmonary hypertension Degenerative valve disease Possible capsule study. Empiric antibiotics added. Titrate beta dorys for rate control. Holding anticoagulation due to increased risk to benefit ratio at present. Off IVF; diuresis x 1. Taper off IV pain meds Replace K+ and Mg++ as needed Titrate antifailure meds; trend BNP. Kyle Lopez MD Sep 14, 2020 23:37
[2020-09-15] MEDS ORDERED: cefTRIAXone 1 GM in D5W 55 ML IVPB SCH ×2
[2020-09-15 04:00] VITALS: BP 123/75
--- NOTE | 2020-09-15 05:35 | NUR ---
NURSE NOTES: All due meds given. Given Zofran prn for nausea and pt. verbalized relief. Started on clear liquid diet, pt. made aware and verbalized understanding. Able to void freely. Slept at long intervals. Kept warm and comfortable at all times. Visual check at frequent times. Started on Rocephin, without a/r noted. No episode of nausea noted. Will continue to with plan of care.
[2020-09-15] MEDS: HydrALAZINE 50mg tab ORAL SCH ×2 (06:13→13:38)
--- NOTE | 2020-09-15 07:34 | NUR ---
NURSE HAND-OFF: Important Events on Shift:abdominal pain,new ivatb started Patient Status: stable Diet: Pending Orders: Pending Results/Labs: Pending MD notification: Latest Vital Signs: Temperature 97.5 , Pulse 72 , B/P 142 /73 , Respiratory Rate 17 , O2 SAT 99 , Room Air, O2 Flow Rate 2.0 . Vital Sign Comment: Latest Nur Fall Score: 35 Fall Risk: Medium Risk Safety Measures: Call light Within Reach, Bed Alarm Zone 1, Side Rails Side Rails x1, Bed position Low and Locked. Fall Precautions: Door Sign Patient Fall Education Report given to Bebo FIELDS.
--- NOTE | 2020-09-15 07:35 | NUR ---
NURSE NOTES: Handoff received from Al RN. Patient is awake and alert, eating breakfast, no signs of distress noted. No reports of pain or nausea at this time. IV is intact and saline locked. Patient updated on plan of care and discharge planned for this afternoon. Bed is low and locked, side rails up x2, call light is within reach.
[2020-09-15 08:00] VITALS: BP 134/52
[2020-09-15] MEDS: Flonase Nasal Inhaler 16gm NASAL SCH ×2 (08:36→17:39)
[2020-09-15] MEDS: Sucralfate 1gm tab ORAL SCH ×3 (08:36→17:30)
[2020-09-15] MEDS: Pantoprazole Inj IVP SCH (08:36)
[2020-09-15] MEDS: Diclofenac 1% Gel 100gm TOPIC SCH ×3 (08:36→17:39)
[2020-09-15] MEDS: Simethicone 80mg tab ORAL SCH ×3 (08:37→17:30)
[2020-09-15] MEDS: Losartan 50mg tab ORAL SCH (08:37)
[2020-09-15 12:00] VITALS: BP 117/55
[2020-09-15] MEDS ORDERED: GAS RELIEF 8080 MG ORAL (12:33)
[2020-09-15] MEDS ORDERED: FLONASE1 SPRAYS NASAL (12:33)
[2020-09-15] MEDS ORDERED: COZAAR50 MG ORAL (12:33)
[2020-09-15] MEDS ORDERED: SUCRALFATE1 GM ORAL (12:33)
[2020-09-15] MEDS ORDERED: LOPRESSOR25 M1 ORAL (12:33)
[2020-09-15] MEDS ORDERED: VOLTAREN100 G1 TOPIC (12:33)
[2020-09-15] MEDS ORDERED: IPRATROPIU0.2 MG/1 M HHN (12:33)
[2020-09-15] MEDS ORDERED: APRESOLINE50 MG ORAL (12:33)
[2020-09-15] MEDS ORDERED: LEVSIN0.125 MG ORAL (12:33)
[2020-09-15] MEDS ORDERED: NORVASC5 MG ORAL (12:33)
--- NOTE | 2020-09-15 13:18 | Surgery Progress Note ---
Surgery Progress Note Subjective Symptoms: improved, tolerating diet, passing flatus, BM Objective Last 24 Hour Vital Signs Date Time Temp Pulse Resp B/P (MAP) Pulse Ox O2 Delivery O2 Flow Rate FiO2 09/15/20 12:00 98.6 64 21 117/55 (75) 99 09/15/20 09:00 Room Air 09/15/20 08:37 75 134/52 09/15/20 08:37 134/52 09/15/20 08:37 75 134/52 09/15/20 08:00 98.0 75 20 134/52 (79) 99 09/15/20 07:15 73 18 96 Room Air 21 09/15/20 07:15 96 Room Air 21 09/15/20 06:13 142/73 09/15/20 04:00 97.5 72 17 123/75 (91) 99 09/14/20 21:08 141/76 09/14/20 21:00 Room Air 09/14/20 20:00 98.2 69 20 139/69 (92) 100 09/14/20 19:32 95 Room Air 21 09/14/20 19:32 76 20 95 Room Air 21 09/14/20 17:42 71 143/68 09/14/20 16:00 96.9 71 20 143/68 (93) 97 09/14/20 15:46 98.2 09/14/20 15:15 143/68 I&O Intake and Output 09/14/20 09/15/20 19:00 07:00 Intake Total 1010 ml 655 ml Output Total 2425 ml Balance -1415 ml 655 ml Intake Oral 960 ml 600 ml IV Total 50 ml 55 ml Output Urine Total 2425 ml # Bowel Movements 1 Cardiovascular: RSR Respiratory: clear Abdomen: soft, non-tender, present bowel sounds, non-distended Extremities: no edema, no tenderness, no cyanosis Plan Problems: (1) Hyponatremia (2) Pancreatitis Assessment & Plan: Liver measures 15.5 cm in craniocaudal dimension. Echotexture of the liver is slightly heterogeneous, limiting evaluation for focal mass. There is no intrahepatic biliary ductal dilatation. The common bile duct measures 0.3 cm, within normal limits. The gallbladder is markedly distended with internal sludge near the gallbladder neck. No definite stone is appreciated, though the gallbladder neck is not well evaluated. There is no definite wall thickening. There is no sonographic Del Cid's sign. Correlate for recent pain medication administration, which would make sonographic Del Cid sign nondiagnostic. Pancreas is not well evaluated due to shadowing artifact from bowel gas. Right kidney measures 8.5 x 3.9 x 4.2 cm. The right renal parenchyma is not well evaluated due to shadowing artifact from ribs. There is no right renal hydronephrosis. There is cortical scarring of the right kidney at the mid to upper pole region. Left kidney measures 8.2 x 4.5 x 4.4 cm. The left renal parenchyma, is not well evaluated due to shadowing artifact from ribs. There is no left renal hydronephrosis. Probable areas of cortical scarring of the left kidney is noted. Spleen measures 8.2 cm, within normal limits. There is no significant free fluid. Aorta and IVC are not well evaluated due to limitations of the study described above. Aorta measures approximately 2.4 cm in the upper abdomen. IMPRESSION: Evaluation is limited due to body habitus and rib shadowing artifact. Gallbladder is markedly distended with internal sludge near the gallbladder neck. No definite stone is appreciated, though the gallbladder neck is not well evaluated. There is no definite gallbladder wall thickening. There is no sonographic Del Cid's sign. Correlate for recent pain medication administration, which would make sonographic Del Cid sign nondiagnostic. Findings are equivocal for acute cholecystitis. Correlation with HIDA scan is recommended. (3) Abdominal pain Assessment & Plan: 85F abd pain for months. afebrile, HD Stable on admission lipase elevated now normal cramping pain US with sludge and distended GB. no josh elier fluid or inflammation of wall murphys negative HIDA pending - negative IV abx labs and imaging reviewed. no organic finding to correlate with symptoms. no acute surgical intervention planned appreciate GI input okay for trial diet diet as tolerated okay to d/c home from surgical standpoint will follow with recs thank you A limited single contrast upper GI was performed followed by a small bowel follow-through. This study consistent of overhead images only. Fluoroscopy was not utilized. The esophagus is only imaged from the mid to distal segment. Tertiary contractions demonstrated. No distinct fixed mucosal abnormality demonstrated. A hiatal hernia noted. Normal emptying of contrast into the stomach is noted. Stomach is only partially distended with contrast. No gross definable filling defect identified on this single contrast exam. The pyloric region appears unremarkable. Duodenal bulb and sweep appear normal. Ligament of Treitz is in the normal location. Small bowel loops are normal in caliber. No distinct mucosal abnormality demonstrated to the extent visualized. There is no marrow edema or separation of loops. Contrast reached the colon by 45 minutes. No sign of distention or obstruction. IMPRESSION: LIMITED UPPER GI SHOWS TERTIARY CONTRACTIONS OF THE ESOPHAGUS AND A SMALL HIATAL HERNIA. MUCOSAL EVALUATION OF THE ESOPHAGUS AND STOMACH IS LIMITED ON THIS SINGLE CONTRAST EXAM. NORMAL TRANSIT OF CONTRAST THROUGH THE SMALL BOWEL. NO DEFINABLE MUCOSAL ABNORMALITY. NO SIGN OF DISTENTION OR OBSTRUCTION. (4) CHF (congestive heart failure) (5) Chest pain (6) Elevated alkaline phosphatase level (7) Anemia (8) Diarrhea (9) Diverticulosis (10) Pleural effusion Wes Juarez Sep 15, 2020 13:18
--- NOTE | 2020-09-15 15:03 | NUR ---
DISCHARGE DISCHARGE TO HOME ORDER NOTED
[2020-09-15 16:00] VITALS: BP 130/65
--- NOTE | 2020-09-15 16:15 | NUR ---
NURSE NOTES: Per Doctor Nilam, patient to go to [facility].
[2020-09-15 17:30] VITALS: BP 130/65
--- NOTE | 2020-09-15 17:31 | NUR ---
FOOD OPERATIONS MANAGER NOTE PATIENT HAS AGREED WITH ORIGINAL RECOMMENDATION FOR SNF PLACEMENT CHARGE NURSE DEMETRIA INFORMED THAT PATIENT HAS AGREED AND ACCEPTED TO [facility]
--- NOTE | 2020-09-15 17:37 | NUR ---
NURSE NOTES: Spoke to regarding discharge disposition and new order received. Order read back and carried out.
--- NOTE | 2020-09-15 18:22 | NUR ---
NURSE NOTES: Spoke to regarding discharge diet and Regular diet ordered. Order read back and carried out.
--- NOTE | 2020-09-15 19:38 | NUR ---
NURSE HAND-OFF: Important Events on Shift:[discharge plan to CVT] Patient Status:stable Diet: regular Pending Orders: none Pending Results/Labs: Pending MD notification: Latest Vital Signs: Temperature 97.6 , Pulse 75 , B/P 130 /65 , Respiratory Rate 21 , O2 SAT 99 , Room Air, O2 Flow Rate 2.0 . Vital Sign Comment: stable Latest Nur Fall Score: 35 Fall Risk: Medium Risk Safety Measures: Call light Within Reach, Bed Alarm Zone 1, Side Rails Side Rails x1, Bed position Low and Locked. Fall Precautions: Door Sign Patient Fall Education Report given to Rory RN.
--- NOTE | 2020-09-15 20:23 | General Progress Note ---
Subjective Allergies: Coded Allergies: No Known Allergies (Unverified , 12/27/15) Subjective comfortable at time of my visit looking forward to d/c tolerating po Objective Last 24 Hour Vital Signs Date Time Temp Pulse Resp B/P (MAP) Pulse Ox O2 Delivery O2 Flow Rate FiO2 09/15/20 17:30 75 130/65 09/15/20 16:00 97.6 75 21 130/65 (86) 99 09/15/20 13:38 117/55 09/15/20 12:00 98.6 64 21 117/55 (75) 99 09/15/20 09:00 Room Air 09/15/20 08:37 75 134/52 09/15/20 08:37 134/52 09/15/20 08:37 75 134/52 09/15/20 08:00 98.0 75 20 134/52 (79) 99 09/15/20 07:15 73 18 96 Room Air 21 09/15/20 07:15 96 Room Air 21 09/15/20 06:13 142/73 09/15/20 04:00 97.5 72 17 123/75 (91) 99 09/14/20 21:08 141/76 09/14/20 21:00 Room Air Intake and Output 09/14/20 09/15/20 19:00 07:00 Intake Total 1010 ml 655 ml Output Total 2425 ml Balance -1415 ml 655 ml Intake Oral 960 ml 600 ml IV Total 50 ml 55 ml Output Urine Total 2425 ml # Bowel Movements 1 Height (Feet): 5 Height (Inches): 5.00 Weight (Pounds): 157 Objective WDWN woman NCAT supple CTA RR Abd soft ND NT no edema Assessment/Plan Status: stable, progressing Assessment/Plan: Assessment - intermittent epigastric/chest pain with dyspnea - cholelithiasis / GB sludge - h/o gastritis - mild anemia - OB (+) --> s/p unrevealing EGD/Colon/SBFT - HTN - hypercholesterolemia Recommendations - monitor labs - Continue BID Protonix - continue QID carafate - cancel Capsule endoscopy since being d/c'd Teodoro Huertas MD Sep 15, 2020 20:23
--- NOTE | 2020-09-15 20:23 | NUR ---
NURSE NOTES: A call was made to angelo Walton, report was given to Elena SEQUEIRA concerning the pending discharge. Currently awaiting pickup by [facility] as indicated.
--- NOTE | 2020-09-15 20:30 | Discharge Summary ---
DATE OF ADMISSION: 09/03/2020 DATE OF DISCHARGE: 09/15/2020 ADMISSION DIAGNOSES: Abdominal pain, intractable nausea and vomiting, dehydration. DISCHARGE DIAGNOSES: 1. Abdominal pain, intractable nausea and vomiting, dehydration. 2. Possible community-acquired pneumonia. HISTORY OF PRESENT ILLNESS/HOSPITAL COURSE: The patient was admitted with complaints of abdominal pain of unclear etiology. She had an extensive workup, which included a CT scan of the abdomen, a venous duplex, abdominal ultrasound, HIDA scan, spine CT, echocardiogram, upper GI with small-bowel followthrough. The majority of those tests were all unremarkable including her HIDA scan. GI, cardiology, and surgical consultations were obtained. The patient was treated with intravenous pain medications and antiemetics. Her abdominal pain did not resolve initially, but gradually improved. On discharge, she was stable for discharge. There was a question about possible bronchitis versus pneumonia on x-ray. This was felt to be likely atelectasis, but out of an abundance of caution, she will be discharged on oral antibiotic therapy just in case. She is instructed to return for any worsening fevers, pain, nausea, vomiting, chest pain. DISCHARGE MEDICATIONS: Please see discharge med list for discharge meds. DIET: Cardiac diet. ACTIVITIES: Ad-kei. FOLLOWUP: The patient will follow up in the office in 1 to 2 weeks. Eliud Demarco M.D. DR: QUIANA JOB#: [id number] CC:
--- NOTE | 2020-09-15 21:44 | Cardiology Progress Note ---
Subjective DATE OF SERVICE: Sep 15, 2020 Episodes of abdominal pain now mostly resolved. Also has episodes of SOB now. CXR (09/14) suggests min CHF, and new left infiltrate with sm pl effn's S/p panendoscopy; biopsies and H.pylori all negative. No CP; troponins negative Lipase level now normal US reveals cholelithiasis and sludge; HIDA scan negative. EKG 09/05/20 revealed atrial fibrillation with adequate rate control. Anticoagulation started and stopped within 24hrs due to bruising and heme positive stool. Low MG++ and K+ noted and replaced 09/12. 2D Echo: significant pulmonary hypertension with mod MR/TR and normal LVEF UGISeries: HH, tertiary esophageal contractions Objective Last 24 Hour Vital Signs Date Time Temp Pulse Resp B/P (MAP) Pulse Ox O2 Delivery O2 Flow Rate FiO2 09/15/20 17:30 75 130/65 09/15/20 16:00 97.6 75 21 130/65 (86) 99 09/15/20 13:38 117/55 09/15/20 12:00 98.6 64 21 117/55 (75) 99 09/15/20 09:00 Room Air 09/15/20 08:37 75 134/52 09/15/20 08:37 134/52 09/15/20 08:37 75 134/52 09/15/20 08:00 98.0 75 20 134/52 (79) 99 09/15/20 07:15 73 18 96 Room Air 21 09/15/20 07:15 96 Room Air 21 09/15/20 06:13 142/73 09/15/20 04:00 97.5 72 17 123/75 (91) 99 ROS: unchanged from my evaluation 09/03/20 LUNGS: rales left CARDIAC: normal rate, normal S1 and S2, irregularly irregular ABDOMEN: normal bowel sounds, soft, tender - mildly in midepigastric area, slightly distended, other - right flank bruising EXTREMITIES: No edema, other - right shoulder bruising posteriorly Assessment/Plan Assessment/Plan Abdominal Pain - etiology unclear, but improved. Ac/chr diastolic CHF New radiographic pneumonia Elevated lipase on admit with distant hx of pancreatitis Non-cardiac chest pain; negative ischemia work up in past. Low range lipid parameters. Paroxysmal atrial fibrillationn with episodes of increased ventricular rates Bruising and heme positive stool while on anticoagulation. Pulmonary hypertension Degenerative valve disease Possible capsule study as outpatient. Empiric antibiotics added. Continue current beta dorys for rate control. No anticoagulation due to increased risk to benefit ratio at present. Continue current cardiovascular regimen following discharge. Kyle Lopez MD Sep 15, 2020 21:44
--- NOTE | 2020-09-17 06:40 | Coder Physician Query ---
Clarification is required for compliance, coding accuracy, and to reflect severity of illness for this patient. Dear Dr. eDmarco Date: 09/17/2020 Fitting Room Maintenance Mechanic: Rosina Bailon CCS ADMISSION DIAGNOSES: Abdominal pain, intractable nausea and vomiting, dehydration. The patient was admitted with complaints of abdominal pain of unclear etiology. She had an extensive workup, which included a CT scan of the abdomen, a venous duplex, abdominal ultrasound, HIDA scan, spine CT, echocardiogram, upper GI with small-bowel followthrough. The majority of those tests were all unremarkable including her HIDA scan. Lipase 09/03/20 401 ( H) Elevated alkaline phosphatase level PN 09/15 -cholelithiasis/ GB sludge? PN 09/14 - pancreatitis? DISCHARGE DIAGNOSES: 1. Abdominal pain, intractable nausea and vomiting, dehydration. 2. Possible community-acquired pneumonia. Please specify the etiology of Abdominal Pain: [] Pancreatitis, Acute [] Cholelithiasis [] Cholecystitis [] Cholangitis [] Irritable Bowel Syndrome [x] Gastroenteritis [x] GERD Gastritis [] Ulcerative Colitis [] Other: [] Clinically Undetermined Physician signature Date Please also document in your Progress Notes and/or Discharge Summary and indicate if the condition was present on admission. LANA
== END 2020-09-15 21:00 | DRG 391 ==
LOC: EDBD 10:56 → EMR 11:13 → EDBEDREQ 13:41 → 2E 13:57 → 3E 09-04 11:45
PROC: 0DB38ZX Excision of Lower Esophagus, Via Natural or Artificial Opening Endoscopic, Diagnostic (ICD-10-PCS; principal; 2020-09-08 07:11)
PROC: 0DB78ZX Excision of Stomach, Pylorus, Via Natural or Artificial Opening Endoscopic, Diagnostic (ICD-10-PCS; principal; 2020-09-08 07:11)
PROC: 0DBE8ZZ Excision of Large Intestine, Via Natural or Artificial Opening Endoscopic (ICD-10-PCS; principal; 2020-09-08 07:11)
DX: K29.60 Other gastritis without bleeding (principal); K85.90 Acute pancreatitis without necrosis or infection, unspecified; J18.9 Pneumonia, unspecified organism; I50.33 Acute on chronic diastolic (congestive) heart failure; E87.1 Hypo-osmolality and hyponatremia; J98.11 Atelectasis; K52.9 Noninfective gastroenteritis and colitis, unspecified; I11.0 Hypertensive heart disease with heart failure; I50.9 Heart failure, unspecified; E86.0 Dehydration; K29.70 Gastritis, unspecified, without bleeding; K21.9 Gastro-esophageal reflux disease without esophagitis; E78.00 Pure hypercholesterolemia, unspecified; R07.89 Other chest pain; Z86.73 Personal history of transient ischemic attack (TIA), and cerebral infarction without residual deficits; E87.8 Other disorders of electrolyte and fluid balance, not elsewhere classified; I48.0 Paroxysmal atrial fibrillation; I27.20 Pulmonary hypertension, unspecified; K57.90 Diverticulosis of intestine, part unspecified, without perforation or abscess without bleeding; F41.9 Anxiety disorder, unspecified; K63.5 Polyp of colon; K44.9 Diaphragmatic hernia without obstruction or gangrene; K22.5 Diverticulum of esophagus, acquired; K80.20 Calculus of gallbladder without cholecystitis without obstruction
CPT/HCPCS: 36415; 71045; 72131; 74177; 76700; 78266; 80048; 80053; 80061; 81003; 82150; 82270; 83605; 83690; 83735; 83880; 84443; 84484; 85025; 85610; 85730; 86140; 93005; 93306; 93970; 94003; 94150; 94640; 94664; 96374; 99285; J2405; J7030; J7620; J8499; U0002

== ENCOUNTER 2020-10-16 12:09 | Inpatient (IN) | payer MEDICARE, MEDICAID ==
[~2020-10-16] VITALS: Ht 157.5 cm; Wt 63.5 kg
[~2020-10-16 12:09] MED LIST changes: +ALBUTEROL SULF8.5 G1 INH; +APRESOLINE50 MG ORAL; +ASCORBIC ACID500 MG ORAL; +ATORVASTATIN CA20 MG ORAL; +CARAFATE SUSP UD1 G1 ORAL; +COZAAR50 MG ORAL; +FLUTICASONE PRO16 G1 NASAL; +GAS RELIEF 8080 MG ORAL; +HYDRALAZINE HCL10 MG ORAL; +HYZAAR 100-251 EACH ORAL; +IPRATROPIU0.2 MG/1 M HHN; +LEVSIN0.125 MG ORAL; +METOPROLOL SUCC50 MG ORAL; +NORVASC5 MG ORAL; +SUCRALFATE1 GM ORAL; +TUMS200 M1 PO; +VITAMIN D325 MC1 PO; +VOLTAREN ARTHRI20 GM TP; +VOLTAREN100 G1 TOPIC
--- NOTE | 2020-10-16 12:14 | NUR ---
ED Nurse Note: Pt arrived with RA 26 from home due to possible anxiety attack. pt is omani speaking only. saturating at 98% room air. VSS.
[2020-10-16 12:15] VITALS: BP 112/62
[2020-10-16] MEDS ORDERED: PROTONIX40 MG ORAL (12:18)
[2020-10-16] MEDS ORDERED: ZOLOFT25 MG ORAL (12:18)
--- NOTE | 2020-10-16 12:52 | NUR ---
ED Nurse Note: Offered blankets and dimmed room light to increase patient comfort.
[2020-10-16] MEDS ORDERED: Lidocaine 2% Visc 15ml soln ORAL ONE (13:00)
[2020-10-16] MEDS ORDERED: Dicyclomine HCl 10mg/5ml oral soln ORAL ONE (13:00)
[2020-10-16] MEDS ORDERED: Mylanta II UD 30ml ORAL ONE (13:00)
[2020-10-16 13:16] LABS: BASOPHILS % (AUTO) 0.9 % (0.0-2.0); EOSINOPHILS % (AUTO) 1.2 % (0.0-3.0); HEMATOCRIT 44.6 % (37.0-47.0); LYMPHOCYTES % (AUTO) 26.2 % (20.0-45.0); MEAN CORPUSCULAR VOLUME 96 FL (80-99); MONOCYTES % (AUTO) 5.9 % (1.0-10.0); NEUTROPHILS % (AUTO) 65.7 % (45.0-75.0); PLATELET COUNT 206 K/UL (150-450); RED BLOOD COUNT 4.66 M/UL (4.20-5.40); RED CELL DISTRIBUTION WIDTH 13.1 % (11.6-14.8); WHITE BLOOD COUNT 6.5 K/UL (4.8-10.8)
--- NOTE | 2020-10-16 13:20 | NUR ---
ED Nurse Note: xray at bedside
[2020-10-16 13:33] LABS: CALCIUM 9.1 MG/DL (8.5-10.1); CREATININE 1.2 MG/DL (0.55-1.30); POTASSIUM 3.9 MMOL/L (3.5-5.1)
[2020-10-16 13:44] LABS: ALBUMIN 3.8 G/DL (3.4-5.0); BILIRUBIN,TOTAL 0.5 MG/DL (0.2-1.0)
--- NOTE | 2020-10-16 13:59 | Diagnostic Imaging Report ---
EXAM: XR Chest, 1 View CLINICAL HISTORY: CP TECHNIQUE: Frontal view of the chest. COMPARISON: Chest x-ray 09/14/20 FINDINGS: Lungs: Mild interstitial prominence. Previously seen airspace opacities have resolved. Pleural space: Unremarkable. No pneumothorax. Heart: Unremarkable. No cardiomegaly. Mediastinum: Unremarkable. Bones/joints: Unremarkable. IMPRESSION: Mild interstitial prominence. Previously seen airspace opacities have resolved.
[2020-10-16 14:03] VITALS: BP 124/79
--- NOTE | 2020-10-16 14:29 | Emergency Room Report ---
History of Present Illness General Chief Complaint: Behavioral Complaint Source: Patient (Gerber Suarez MD) Present Illness HPI 85-year-old female presents to ED for evaluation. Brought in by EMS from home. Per EMS patient was appeared anxious. However on exam patient states that she has been having abdominal pain/chest pain. Started yesterday. Pain is epigastric, dull, 6 out of 10, nonradiating. Denies shortness of breath. Denies fevers or chills. Denies nausea or vomiting. No other aggravating relieving factors. Denies any other associated symptoms (Gerber Suarez MD) Allergies: Coded Allergies: No Known Allergies (Unverified , 12/27/15) COVID-19 Screening Contact w/high risk pt: No Experienced COVID-19 symptoms?: No COVID-19 Testing performed [employer] INSURANCE: Yes COVID-19 Screening: Negative COVID-19 COVID-19 Testing Source: nasal (Gerber Suarez MD) Patient History Past Medical History: HTN, CVA/TIA (Gerber Suarez MD) Nursing Documentation-[facility] Past Medical History: No History, Except For Hx Cardiac Problems: Yes Hx Hypertension: Yes Hx Cancer: No Hx Gastrointestinal Problems: Yes Hx Neurological Problems: Yes Hx Cerebrovascular Accident: Yes - 2000 (Gerber Suarez MD) Review of Systems All Other Systems: negative except mentioned in HPI (Gerber Suarez MD) Physical Exam Vital Signs Date Time Temp Pulse Resp B/P (MAP) Pulse Ox O2 Delivery O2 Flow Rate FiO2 10/16/20 12:10 98.2 87 20 112/62 (79) 98 Room Air Sp02 EP Interpretation: reviewed, normal General Appearance: no apparent distress, alert, GCS 15, non-toxic Head: normocephalic, atraumatic Eyes: bilateral eye normal inspection, bilateral eye PERRL ENT: hearing grossly normal, normal pharynx, no angioedema, normal voice Neck: full range of motion, supple/symm/no masses Respiratory: chest non-tender, lungs clear, normal breath sounds, speaking full sentences Cardiovascular #1: regular rate, rhythm, no edema, gallop/S3 Cardiovascular #2: 2+ carotid (R), 2+ carotid (L), 2+ radial (R), 2+ radial (L), 2+ dorsalis pedis (R), 2+ dorsalis pedis (L) Gastrointestinal: normal bowel sounds, soft, non-distended, no guarding, no rebound, tenderness - Epigastric Rectal: deferred Genitourinary: normal inspection, no CVA tenderness Musculoskeletal: back normal, normal range of motion, gait/station normal, non- tender Neurologic: alert, motor strength/tone normal, oriented x3, sensory intact, responsive, speech normal Psychiatric: judgement/insight normal, memory normal, mood/affect normal, no suicidal/homicidal ideation Reflexes: 3+ bicep (R), 3+ bicep (L), 3+ tricep (R), 3+ tricep (L), 3+ knee (R), 3+ knee (L) Lymphatic: no adenopathy (Gerber Suarez MD) Medical Decision Making Diagnostic Impression: Primary Impression: Abdominal pain Qualified Codes: R10.9 - Unspecified abdominal pain Additional Impression: UTI (urinary tract infection) Qualified Codes: N30.00 - Acute cystitis without hematuria ER Course Hospital Course 85-year-old presents with abdominal pain/chest pain Differential diagnoses include: IL/unstable angina, contusion, muscle strain, PTX, rib fracture Clinical course 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 After initial history and physical I ordered labs, EKG, chest x-ray, IV fluids, Pepcid labs reviewed-no leukocytosis, hemoglobin/hematocrit stable, sodium 126, troponin x1 - UA positive EKGnormal sinus rhythm no acute ischemic changes interpreted by me Chest x-ray-no acute process, no focal consolidation Antibiotics ordered. I reviewed EMR. Patient was seen here in August for similar presentation of vague abdominal pain versus chest pain. Troponins serial were negative. Pain appears to be more abdominal pain had GI evaluation. This presentation appears similar. Given age and comorbidities I believe patient requires admission and evaluation Case discussed with Dr. Demarco and he agreed to accept the patient to his service for further care and support I. I feel this is a highly complex case requiring extensive working including EKG/Rhythm strip, Xray/CT/US, Blood/urine lab work, repeat exams while in ED, and administration of strong opiates/narcotics for pain control, admission to hospital or close patient follow up. Diagnosis -abdominal pain, UTI admitted to floor in serious condition Laboratory Tests Test 10/16/20 12:42 10/16/20 15:27 White Blood Count 6.5 K/UL (4.8-10.8) Red Blood Count 4.66 M/UL (4.20-5.40) Hemoglobin 14.0 G/DL (12.0-16.0) Hematocrit 44.6 % (37.0-47.0) Mean Corpuscular Volume 96 FL (80-99) Mean Corpuscular Hemoglobin 30.1 PG (27.0-31.0) Mean Corpuscular Hemoglobin Concent 31.4 G/DL (32.0-36.0) L Red Cell Distribution Width 13.1 % (11.6-14.8) Platelet Count 206 K/UL (150-450) Mean Platelet Volume 7.8 FL (6.5-10.1) Neutrophils (%) (Auto) 65.7 % (45.0-75.0) Lymphocytes (%) (Auto) 26.2 % (20.0-45.0) Monocytes (%) (Auto) 5.9 % (1.0-10.0) Eosinophils (%) (Auto) 1.2 % (0.0-3.0) Basophils (%) (Auto) 0.9 % (0.0-2.0) Sodium Level 126 MMOL/L (136-145) L Potassium Level 3.9 MMOL/L (3.5-5.1) Chloride Level 96 MMOL/L (98-107) L Carbon Dioxide Level 17 MMOL/L (21-32) L Anion Gap 13 mmol/L (5-15) Blood Urea Nitrogen 33 mg/dL (7-18) H Creatinine 1.2 MG/DL (0.55-1.30) Estimat Glomerular Filtration Rate 42.8 mL/min (>60) Glucose Level 177 MG/DL (74-106) H Calcium Level 9.1 MG/DL (8.5-10.1) Total Bilirubin 0.5 MG/DL (0.2-1.0) Aspartate Amino Transf (AST/SGOT) 36 U/L (15-37) Alanine Aminotransferase (ALT/SGPT) 27 U/L (12-78) Alkaline Phosphatase 101 U/L (46-116) Troponin I 0.011 ng/mL (0.000-0.056) Pro-B-Type Natriuretic Peptide 224 pg/mL (0-125) H Total Protein 7.7 G/DL (6.4-8.2) Albumin 3.8 G/DL (3.4-5.0) Globulin 3.9 g/dL Albumin/Globulin Ratio 1.0 (1.0-2.7) Urine Color Pale yellow Urine Appearance Slightly cloudy Urine pH 6 (4.5-8.0) Urine Specific [place] 1.030 (1.005-1.035) Urine Protein 1+ (NEGATIVE) H Urine Glucose (UA) Negative (NEGATIVE) Urine Ketones Negative (NEGATIVE) Urine Blood Negative (NEGATIVE) Urine Nitrite Negative (NEGATIVE) Urine Bilirubin Negative (NEGATIVE) Urine Urobilinogen Normal MG/DL (0.0-1.0) Urine Leukocyte Esterase 3+ (NEGATIVE) H Urine RBC 0 /HPF (0 - 2) Urine WBC Tntc /HPF (0 - 2) H Urine Squamous Epithelial Cells Many /LPF (NONE/OCC) H Urine Bacteria Moderate /HPF (NONE) H Urine Random Sodium 39 mmol/L (20-110) (Gerber Suarez MD) ER Course Please see above note. Patient also with pyuria. Rocephin ordered. (Kyle Montano MD) EKG Diagnostic Results Troponin ordered: Yes Rate: normal Rhythm: NSR ST Segments: no acute changes ASA given to the pt in ED: Yes (Gerber Suarez MD) Rhythm Strip Diag. Results EP Interpretation: yes Rhythm: NSR, no PVC's, no ectopy (Gerber Suarez MD) Chest X-Ray Diagnostic Results Chest X-Ray Diagnostic Results : Chest X-Ray Ordered: Yes # of Views/Limited/Complete: 1 View Indication: Chest Pain EP Interpretation: Yes Interpretation: no consolidation, no effusion, no pneumothorax, no acute cardiopulmonary disease Impression: No acute disease Electronically Signed by: Electronically signed by Gerber Suarez MD (Gerber Suarez MD) Last Vital Signs Date Time Temp Pulse Resp B/P (MAP) Pulse Ox O2 Delivery O2 Flow Rate FiO2 10/16/20 14:03 98.3 73 20 124/79 98 Room Air Status: improved (Gerber Suarez MD) Disposition: ADMITTED INPATIENT Condition: Serious Referrals: Uomoto,Eliud M. MD (PCP) Gerber Suarez MD Oct 16, 2020 14:29 Kyle Montano MD Oct 16, 2020 16:26
--- NOTE | 2020-10-16 15:32 | NUR ---
ED Nurse Note: Pt ambulated to restroom with 1 RN assist. pt was able to collect urine sample.
[2020-10-16 15:49] LABS: APPEARANCE,URINE SLIGHTLY CLOUDY; BILIRUBIN, URINE NEGATIVE (NEGATIVE); COLOR,URINE PALE YELLOW; GLUCOSE, URINE (UA) NEGATIVE (NEGATIVE); KETONES,URINE NEGATIVE (NEGATIVE); LEUKOCYTE ESTERASE ,URINE 3+ (NEGATIVE); NITRITE,URINE NEGATIVE (NEGATIVE); PH,URINE 6 (4.5-8.0); PROTEIN,URINE 1+ (NEGATIVE); UROBILINOGEN,URINE NORMAL MG/DL (0.0-1.0)
[2020-10-16 16:04] VITALS: BP 124/54
[2020-10-16] MEDS ORDERED: cefTRIAXone 1 GM in NS 55 ML IVPB ONE (16:30)
--- NOTE | 2020-10-16 17:37 | NUR ---
TRANSFER TO FLOOR: Patient transferred to ms as ordered, per ERMD. Report given to HUA NAYLOR. Belongings and medications given to PT.
--- NOTE | 2020-10-16 17:45 | NUR ---
NURSE NOTES: Pt brought up to unit via gurney in stable condition and w/belongings accounted for. Pt A&Ox3, VSS, and in no apparent distress. IV site intact/asymptomatic & skin intact. Pt presently denies any pain. Will continue to monitor.
[2020-10-16 18:00] VITALS: BP 119/66
[2020-10-16] MEDS ORDERED: Acetaminophen 500mg (ES) tab ORAL PRN ×2 (19:00→19:15)
[2020-10-16] MEDS ORDERED: Diclofenac 1% Gel 100gm TOPIC PRN (19:00)
[2020-10-16] MEDS ORDERED: Hyoscyamine 0.125mg tab ORAL PRN (19:00)
[2020-10-16] MEDS ORDERED: Milk of Magnesia 30ml Ud ORAL PRN (19:15)
[2020-10-16] MEDS ORDERED: LACTULOSE20 GM/301 ORAL (19:37)
--- NOTE | 2020-10-16 19:45 | NUR ---
NURSE HAND-OFF: Important Events on Shift: Pt admitted to unit during end of shift; reviewed home meds and belongings list w/pt; endorsed rest of admission to NOC shift RN. Patient Status: Stable Diet: Regular Pending Orders: None Pending Results/Labs: None Pending MD notification: None Latest Vital Signs: Temperature 97.7 , Pulse 72 , B/P 119 /66 , Respiratory Rate 20 , O2 SAT 98 , Room Air, O2 Flow Rate Vital Sign Comment: Stable Latest Nur Fall Score: 30 Fall Risk: Medium Risk Safety Measures: Call light , Bed Alarm , Side Rails , Bed position . Fall Precautions: Report given to HUA Loza.
[2020-10-16 20:00] VITALS: BP 135/53
[2020-10-16] MEDS: Atorvastatin 20mg tab ORAL SCH (20:30)
[2020-10-16] MEDS: HydrALAZINE 50mg tab ORAL SCH (20:31)
[2020-10-16] MEDS: Piperacillin/Tazobactam 3.375 GM in NS 110 ML IVPB SCH (20:33)
[2020-10-16] MEDS ORDERED: Diclofenac 1% Gel 100gm TOPIC SCH (21:00)
--- NOTE | 2020-10-16 23:46 | NUR ---
NURSES NOTE: Pt in bed, Wolof speaker, able to answer some simple questions appropriately. Billet Recorder used for admission purposes. A/OX3, not outward s/so of distress noted. Breathing pattern is even and unlabored on RA. Head to toe assessment performed. Skin is clear and intact. IV L AC is intact, infusing IVF without incident. Ambulatory with assist. All due medications will be administered. Bed at lowest level. Call light within reach. Pt will continue to be monitored.
[2020-10-17] VITALS: BP 96/50
[2020-10-17] MEDS: HydrALAZINE 50mg tab ORAL SCH ×3 (03:00→18:26)
[2020-10-17 04:00] VITALS: BP 119/51
[2020-10-17] MEDS: Piperacillin/Tazobactam 3.375 GM in NS 110 ML IVPB SCH ×3 (05:20→22:56)
[2020-10-17] MEDS: Diclofenac 1% Gel 100gm TOPIC PRN ×2 (05:21→09:09)
[2020-10-17 07:02] LABS: BASOPHILS % (AUTO) 0.9 % (0.0-2.0); HEMATOCRIT 38.4 % (37.0-47.0); HEMOGLOBIN 12.4 G/DL (12.0-16.0); LYMPHOCYTES % (AUTO) 30.5 % (20.0-45.0); MEAN CORPUSCULAR VOLUME 94 FL (80-99); MONOCYTES % (AUTO) 11.5 % (1.0-10.0); NEUTROPHILS % (AUTO) 55.1 % (45.0-75.0); PLATELET COUNT 193 K/UL (150-450); RED BLOOD COUNT 4.08 M/UL (4.20-5.40); WHITE BLOOD COUNT 5.5 K/UL (4.8-10.8)
[2020-10-17 07:17] LABS: ALBUMIN 3.2 G/DL (3.4-5.0); BILIRUBIN,TOTAL 0.6 MG/DL (0.2-1.0); CALCIUM 8.6 MG/DL (8.5-10.1); CREATININE 1.2 MG/DL (0.55-1.30); POTASSIUM 4.3 MMOL/L (3.5-5.1)
--- NOTE | 2020-10-17 07:30 | NUR ---
NURSE NOTES: Pt lying in bed w/bed in lowest position and call light within reach. Pt A&Ox3-4, VSS, and in no apparent distress. IV site intact/asymptomatic w/IVF infusing and skin intact. Will continue to monitor.
--- NOTE | 2020-10-17 07:44 | NUR ---
NURSE HAND-OFF: Important Events on Shift:[BP falls with NOC shift BP meds. Endorsed to AM shift to monitor BP before and after BP meds. Adjustment in doses may be necessary] Patient Status: [stable] Diet: [regular] Pending Orders: [none] Pending Results/Labs:[mag troponin] Pending MD notification:[none] Latest Vital Signs: Temperature 98.5 , Pulse 80 , B/P 119 /51 , Respiratory Rate 18 , O2 SAT 95 , Room Air, O2 Flow Rate . Vital Sign Comment: [wnl] Latest Nur Fall Score: 30 Fall Risk: Medium Risk Safety Measures: Call light Within Reach, Bed Alarm Zone 1, Side Rails Side Rails x2, Bed position Low and Locked. Fall Precautions: Yellow Socks Yellow Gown Patient Fall Education Report given to [HUA Cox].
[2020-10-17 08:00] VITALS: BP 116/64
[2020-10-17] MEDS: Ascorbic Acid 500mg tab ORAL SCH (08:58)
[2020-10-17] MEDS: Metoprolol Succinate XL 50mg tab ORAL SCH (08:58)
[2020-10-17] MEDS: Losartan 50mg tab ORAL SCH (08:59)
[2020-10-17] MEDS: Sertraline 50mg tab ORAL SCH (09:08)
--- NOTE | 2020-10-17 09:44 | History and Physical Report ---
DATE OF ADMISSION: 10/16/2020 CHIEF COMPLAINT: Shoulder pain, chest pain, abdominal pain. HISTORY OF PRESENT ILLNESS: The patient is an 85-year-old female, well known to me. She has a history of hypertensive heart disease, chronic abdominal pain, who presented with complaints of shoulder pain, chest pain, and abdominal pain. The patient is a poor historian. She has had intermittent pain for the last several months, but seemed to be worse on the day of admission. On evaluation in the emergency room, her workup was unremarkable except for a sodium of 126, she is now admitted for further evaluation and care. PAST MEDICAL HISTORY: As above. PAST SURGICAL HISTORY: Includes cholecystectomy. CURRENT MEDICATIONS: Reconciled and reviewed. ALLERGIES: None. FAMILY HISTORY: None. SOCIAL HISTORY: Negative for tobacco, ethanol, or drugs. REVIEW OF SYSTEMS: GENERAL: No fevers or chills. HEENT: No headaches or visual changes. CARDIOPULMONARY: Positive chest pain. No shortness of breath. GI: Positive abdominal pain. No nausea. No vomiting. No diarrhea. : No urgency or frequency. MUSCULOSKELETAL: No joint pain or swelling. NEURO: No seizures. PHYSICAL EXAMINATION: VITAL SIGNS: Temperature 98.4, pulse 67, respirations 19, blood pressure was 96/50. GENERAL: The patient is well developed, in no apparent distress. HEART: Regular rate and rhythm. LUNGS: Clear. ABDOMEN: Soft, nontender, nondistended. EXTREMITIES: No cyanosis or edema. LABORATORY DATA: White count was 6, hemoglobin 14. Sodium 126, potassium 3.9. UA had 2 too numerous to count wbc's. ASSESSMENT: This is an 85-year-old female with complaints of abdominal pain, likely secondary to UTI and severe hyponatremia, possibly due to her diuretic. PLAN: IV antibiotics. Follow up cultures. Intravenous hydration with normal saline. We will review the patient's medications and discontinue her diuretic. Discharge plan is yet to be determined. Eliud Demarco M.D. DR: ALEXIS JOB#: [id number] CC:
[2020-10-17 12:00] VITALS: BP 130/73
[2020-10-17] MEDS: Simethicone 80mg tab ORAL PRN ×2 (15:51→20:19)
[2020-10-17 16:00] VITALS: BP 136/77
--- NOTE | 2020-10-17 19:23 | NUR ---
NURSE HAND-OFF: Important Events on Shift: Med recon done by Dr. Demarco this AM; home meds returned to pharmacy; pt c/o stomach issues; PRN meds given. Patient Status: Stable Diet: Regular Pending Orders: None Pending Results/Labs: None Pending MD notification: None Latest Vital Signs: Temperature 97.3 , Pulse 70 , B/P 157 /70 , Respiratory Rate 18 , O2 SAT 97 , Room Air, O2 Flow Rate . Vital Sign Comment: Stable Latest Nur Fall Score: 30 Fall Risk: Medium Risk Safety Measures: Call light Within Reach, Bed Alarm Zone 1, Side Rails Side Rails x2, Bed position Low and Locked. Fall Precautions: Yellow Socks Yellow Gown Patient Fall Education Report given to HUA Loza.
[2020-10-17 20:00] VITALS: BP 140/71
[2020-10-17] MEDS: Atorvastatin 20mg tab ORAL SCH (20:19)
[2020-10-17] MEDS: Heparin 5000 units/ml inj SUBQ SCH (20:20)
--- NOTE | 2020-10-17 20:37 | Cardiology Report ---
APPROVED REPORT EKG Measurement Heart [id number] <Conclusion> Normal sinus rhythm Normal ECG
[2020-10-17] MEDS ORDERED: Tums 500mg ORAL PRN (20:45)
--- NOTE | 2020-10-17 20:47 | NUR ---
NURSES NOTE: Endorsement received from HUA Cox. Rounds made. Pt in bed, A/OX4. No outward s/s of distress noted. Breathing pattern is even and unlabored on RA. Pt complaining of epigastric discomfort. Simethicone 80mg given. New order for Tums also processed. IV L FA, in place, no s/s of infiltration. Skin is clear and intact. All due medications will be given. Bed at lowest level call. Pt will continue to be monitored.
[2020-10-18] VITALS: BP 111/75
--- NOTE | 2020-10-18 01:14 | Cardiology Progress Note ---
Subjective DATE OF SERVICE: Oct 17, 2020 Remains on IVF Na+ level correcting Abdominal pain persists; prior extensive GI work up unremarkable. No CP or SOB today. Objective Last 24 Hour Vital Signs Date Time Temp Pulse Resp B/P (MAP) Pulse Ox O2 Delivery O2 Flow Rate FiO2 10/18/20 00:00 98.7 88 20 111/75 (87) 95 10/17/20 21:00 Room Air 10/17/20 20:00 97.5 65 18 140/71 (94) 96 10/17/20 18:26 157/70 10/17/20 16:00 97.3 70 18 136/77 (96) 97 10/17/20 12:00 98.2 65 18 130/73 (92) 96 10/17/20 09:08 86 116/64 10/17/20 09:00 Room Air 10/17/20 08:59 116/64 10/17/20 08:58 86 116/64 10/17/20 08:00 98.0 86 18 116/64 (81) 99 10/17/20 04:00 98.5 80 18 119/51 (73) 95 10/17/20 03:00 96/50 ROS: unchanged from my evaluation of 10/16/20. HEENT: normal ENT inspection LUNGS: lungs clear bilaterally CARDIAC: normal rate, regular rhythm, normal S1 and S2 ABDOMEN: normal bowel sounds, non tender, soft, distended EXTREMITIES: normal range of motion, non-tender, No edema Laboratory Tests Test 10/17/20 04:50 White Blood Count 5.5 K/UL (4.8-10.8) Red Blood Count 4.08 M/UL (4.20-5.40) L Hemoglobin 12.4 G/DL (12.0-16.0) Hematocrit 38.4 % (37.0-47.0) Mean Corpuscular Volume 94 FL (80-99) Mean Corpuscular Hemoglobin 30.3 PG (27.0-31.0) Mean Corpuscular Hemoglobin Concent 32.2 G/DL (32.0-36.0) Red Cell Distribution Width 13.0 % (11.6-14.8) Platelet Count 193 K/UL (150-450) Mean Platelet Volume 7.5 FL (6.5-10.1) Neutrophils (%) (Auto) 55.1 % (45.0-75.0) Lymphocytes (%) (Auto) 30.5 % (20.0-45.0) Monocytes (%) (Auto) 11.5 % (1.0-10.0) H Eosinophils (%) (Auto) 2.0 % (0.0-3.0) Basophils (%) (Auto) 0.9 % (0.0-2.0) Sodium Level 137 MMOL/L (136-145) # Potassium Level 4.3 MMOL/L (3.5-5.1) Chloride Level 104 MMOL/L (98-107) Carbon Dioxide Level 25 MMOL/L (21-32) Anion Gap 9 mmol/L (5-15) Blood Urea Nitrogen 28 mg/dL (7-18) H Creatinine 1.2 MG/DL (0.55-1.30) Estimat Glomerular Filtration Rate 42.8 mL/min (>60) Glucose Level 82 MG/DL (74-106) Calcium Level 8.6 MG/DL (8.5-10.1) Magnesium Level 1.8 MG/DL (1.8-2.4) Total Bilirubin 0.6 MG/DL (0.2-1.0) Aspartate Amino Transf (AST/SGOT) 25 U/L (15-37) Alanine Aminotransferase (ALT/SGPT) 26 U/L (12-78) Alkaline Phosphatase 81 U/L (46-116) Troponin I 0.043 ng/mL (0.000-0.056) Pro-B-Type Natriuretic Peptide 238 pg/mL (0-125) H Total Protein 6.3 G/DL (6.4-8.2) L Albumin 3.2 G/DL (3.4-5.0) L Globulin 3.1 g/dL Albumin/Globulin Ratio 1.0 (1.0-2.7) Microbiology Date/Time Source Procedure Growth Status 10/16/20 17:33 Rectum Received 10/16/20 15:27 Urine,Clean Catch Urine Culture - Preliminary NO GROWTH Resulted Assessment/Plan Assessment/Plan UTI Chronic abdominal pain Hyponatremia due to diuretic rx - resolved Hypertension/HHD Paroxysmal atrial fibrillation Pulmonary hypertension Degenerative mitral valve disease with regurgitation Hx CVA Isotonic IVF Antimicrobials No diuretics Titrate antiHTN meds Antiplt tx/statin drug for LDL goal under 70. Avoid narcotic analgesics DVT prophyl John,Kyle MD Oct 18, 2020 01:14
--- NOTE | 2020-10-18 01:44 | Consultation ---
DATE OF CONSULTATION: 10/16/2020 CARDIOLOGY CONSULTATION CONSULTING PHYSICIAN: Kyle Lopez MD. REQUESTING PHYSICIAN: Eliud Demarco MD. REASON FOR CONSULTATION: Chest pain. HISTORY OF PRESENT ILLNESS: This is an 85-year-old female, she was hospitalized here over a month ago and treated for heart failure. She has been recovering at a long term facility. She was discharged home recently. She was brought in by paramedics complaining of chest and abdominal pain of 1 day's duration. She describes it as mid epigastric radiating to the chest and 6/10 in intensity with no associated nausea, vomiting, diarrhea, fevers, chills, or shortness of breath. The patient has had a history of abdominal pain in the past and had an extensive GI workup here last month, which was entirely unremarkable. PAST MEDICAL HISTORY: Includes cerebrovascular disease with history of cerebrovascular accident in 2000, hypertension with hypertensive heart disease, osteoarthritis, degenerative disc disease, paroxysmal atrial fibrillation, degenerative mitral valve disease with regurgitation, pulmonary hypertension. ALLERGIES: None. MEDICATIONS: Reviewed and reconciled. FAMILY HISTORY: Noncontributory. SOCIAL HISTORY: Negative for smoking, alcohol, or substance abuse. REVIEW OF SYSTEMS: No fevers or chills. No loss of vision or hearing. No known history of COVID-19 exposure. No history of diabetes or thyroid disorder. She has had a prior stroke with minimal residual deficits. She had an echocardiogram here in the last month with normal ejection fraction, mild concentric hypertrophy and mild degenerative valve disease. There is no history of sustained cardiac arrhythmias or flow-limiting coronary disease. There is no history of abnormal blood clotting. There is no history of asthma or COPD. The patient has occasional stress incontinence. The patient had panendoscopy and imaging studies, which were notable only for mild gastritis last month. PHYSICAL EXAMINATION: VITAL SIGNS: Blood pressure 112/62, pulse 87, respirations 20, afebrile, room air oxygen sat 98%. HEENT: Conjunctivae are pink. Oropharynx clear. NECK: Supple. Jugular venous pressure normal. No bruits. LUNGS: Clear. CARDIAC: Regular rhythm and rate. Normal S1, S2 with a 1/6 systolic murmur at base. ABDOMEN: Soft, mildly tender mid epigastric region. No guarding or rebound. EXTREMITIES: No edema. NEUROLOGIC: Nonfocal. LABORATORY AND DIAGNOSTIC DATA: Sodium 126, potassium 3.9, bicarb 17, BUN 33, creatinine 1.2. Troponin negative. Glucose 177, pro-natriuretic peptide 224, albumin 3.8. White count 6.5, hemoglobin 14. Urinalysis with too numerous to count white cells. EKG reveals sinus rhythm with no abnormalities. IMPRESSION: 1. Abdominal pain, chronic. 2. Urinary tract infection. 3. Hyponatremia. 4. Hypovolemia. 5. Prerenal azotemia. 6. Metabolic acidosis. 7. Chronic diastolic congestive heart failure. 8. Hypertensive heart disease. 9. No clinical signs of acute myocardial ischemia. PLAN: 1. Saline hydration. 2. Hold diuretics. 3. Empiric antimicrobials. 4. DVT prophylaxis. 5. Monitor chemistry panel. 6. Follow up troponin level. 7. Avoid narcotic analgesic therapy. Kyle Lopez M.D. DR: AAMIR JOB#: [id number] CC: LANA
[2020-10-18] MEDS: HydrALAZINE 50mg tab ORAL SCH (03:52)
[2020-10-18 04:00] VITALS: BP 127/67
[2020-10-18] MEDS: Piperacillin/Tazobactam 3.375 GM in NS 110 ML IVPB SCH (05:35)
--- NOTE | 2020-10-18 06:15 | NUR ---
NURSE HAND-OFF: Important Events on Shift:[New order for TUMS processed NOC shift] Patient Status: [stable] Diet: [regular] Pending Orders: [none] Pending Results/Labs:[none] Pending MD notification:[none] Latest Vital Signs: Temperature 98.2 , Pulse 63 , B/P 127 /67 , Respiratory Rate 20 , O2 SAT 96 , Room Air, O2 Flow Rate . Vital Sign Comment: [wnl] Latest Nur Fall Score: 30 Fall Risk: Medium Risk Safety Measures: Call light Within Reach, Bed Alarm Zone 1, Side Rails Side Rails x2, Bed position Low and Locked. Fall Precautions: Yellow Socks Yellow Gown Patient Fall Education Report given to [].
[2020-10-18] MEDS ORDERED: LEVOFLOXACIN500 MG ORAL (07:18)
--- NOTE | 2020-10-18 07:50 | NUR ---
HAND OFF: Report given to HUA Hart.
--- NOTE | 2020-10-18 07:51 | NUR ---
NURSE NOTES: Received report from Denia SEQUEIRA. Patient is awake and oriented, in no apparent distress, reporting no pain. Discharge order received from Dr. Demarco, patient notified and in agreement with discharge plan, will contact patient's caregiver. IVF running per order. Fall precautions maintained. Side rails upx2, bed low and locked, call light within reach.
[2020-10-18 08:00] VITALS: BP 138/61
--- NOTE | 2020-10-18 08:14 | Discharge Summary ---
DATE OF ADMISSION: 10/16/2020 DATE OF DISCHARGE: 10/18/2020 ADMISSION DIAGNOSES: 1. Chest pain. 2. Abdominal pain. 3. Hyponatremia. 4. UTI. DISCHARGE DIAGNOSES: 1. Chest pain. 2. Abdominal pain. 3. Hyponatremia. 4. UTI. HOSPITAL COURSE: The patient is a pleasant female, well known to me presented with complaints of chest pain and abdominal pain. Chest pain is likely musculoskeletal as she mostly referred to her right shoulder. She was noted to have a sodium 126. Her diuretic was discontinued. She was placed on normal saline hydration. Sodium improved. She was also diagnosed with UTI and treated with antibiotics. She will finish three more days of Levaquin as an outpatient. Followup in the office in 1 to 2 weeks. DISCHARGE MEDICATIONS: Please see discharge medication list for discharge medications. DIET: Regular diet. ACTIVITY: Ad-kei. Eliud Demarco M.D. DR: Argenis JOB#: [id number] CC:
[2020-10-18] MEDS: Losartan 50mg tab ORAL SCH (08:38)
[2020-10-18 08:39] VITALS: BP 138/61
[2020-10-18] MEDS: Sertraline 50mg tab ORAL SCH (08:39)
[2020-10-18] MEDS: Ascorbic Acid 500mg tab ORAL SCH (08:39)
[2020-10-18] MEDS: Metoprolol Succinate XL 50mg tab ORAL SCH (08:39)
[2020-10-18] MEDS: Heparin 5000 units/ml inj SUBQ SCH (08:40)
--- NOTE | 2020-10-18 09:11 | NUR ---
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
--- NOTE | 2020-10-18 11:01 | NUR ---
NURSE NOTES: Patient discharged in no apparent distress. Discharge education provided via [employer] thermo processor #[id number], patient verbalized understanding. Home medications returned to patient, patient provided with Rx for Levaquin. IV removed intact, ID band removed. Patient escorted to private vehicle via wheelchair accompanied by caregiver (Veronica).
--- NOTE | 2020-10-19 02:49 | Cardiology Progress Note ---
Subjective DATE OF SERVICE: Oct 18, 2020 Now off IVF Na+ level corrected Abdominal pain controlled; prior extensive GI work up unremarkable. No CP or SOB since admit. Objective Last 24 Hour Vital Signs Date Time Temp Pulse Resp B/P (MAP) Pulse Ox O2 Delivery O2 Flow Rate FiO2 10/18/20 09:00 Room Air 10/18/20 08:39 71 138/61 10/18/20 08:39 71 138/61 10/18/20 08:38 138/61 10/18/20 08:00 97.8 71 17 138/61 (86) 96 10/18/20 04:00 98.2 63 20 127/67 (87) 96 10/18/20 03:52 127/67 ROS: unchanged from my evaluation of 10/16/20. HEENT: normal ENT inspection LUNGS: lungs clear bilaterally CARDIAC: normal rate, regular rhythm, normal S1 and S2 ABDOMEN: normal bowel sounds, non tender, soft, distended EXTREMITIES: normal range of motion, non-tender, No edema Microbiology Date/Time Source Procedure Growth Status 10/16/20 17:33 Rectum - Final NO CARBAPENEM-RESISTANT ENTEROBACTERI... Complete 10/16/20 17:33 Rectum VRE Culture - Final NO VANCOMYCIN RESISTANT ENTEROCOCCUS ... 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 Complete 10/16/20 15:27 Urine,Clean Catch Urine Culture - Final Diphtheroids Complete Assessment/Plan Assessment/Plan UTI Chronic abdominal pain Hyponatremia due to diuretic rx - resolved Hypertension/HHD Paroxysmal atrial fibrillation Pulmonary hypertension Degenerative mitral valve disease with regurgitation Hx CVA No diuretics Maintain current antiHTN meds upon discharge Antiplt tx/statin drug for LDL goal under 70. Avoid narcotic analgesics Outpatient follow up. Kyle Lopez MD Oct 19, 2020 02:49
== END 2020-10-18 11:00 | disposition home or self-care (01) | DRG 313 ==
LOC: EDBD 12:09 → EMR 12:43 → 3E 14:06 → EDBEDREQ 14:21 → EDBEDREQSVC 14:24 → EDBEDREQ 14:24 → 3E 17:58
DX: R07.89 Other chest pain (principal); N39.0 Urinary tract infection, site not specified; E87.1 Hypo-osmolality and hyponatremia; E87.2 Acidosis; I50.32 Chronic diastolic (congestive) heart failure; T50.2X5A Adverse effect of carbonic-anhydrase inhibitors, benzothiadiazides and other diuretics, initial encounter; G89.29 Other chronic pain; R10.9 Unspecified abdominal pain; Z86.73 Personal history of transient ischemic attack (TIA), and cerebral infarction without residual deficits; I27.20 Pulmonary hypertension, unspecified; E86.1 Hypovolemia; I11.0 Hypertensive heart disease with heart failure; I48.0 Paroxysmal atrial fibrillation; I34.0 Nonrheumatic mitral (valve) insufficiency
CPT/HCPCS: 36415; 71045; 80053; 81003; 83735; 83880; 84300; 84484; 85025; 87081; 87086; 93005; 96365; 96375; 99285; J2405; J7030